=== PATIENT | female | born 1965 | race Caucasian/White ===

== ENCOUNTER 2020-01-27 18:33 | Emergency (ER) | payer OTHER, SELFPAY ==
[2020-01-27 18:38] VITALS: BP 160/105; PULSE 80; RESP 16; TEMP 36.1; O2SAT 96; BMI 41.5
[2020-01-27 20:12] VITALS: BP 137/69; PULSE 72; RESP 16; TEMP 36.8; O2SAT 97
--- NOTE | 2020-01-27 20:26 | XR_ITS ---
EXAMINATION: RIGHT FOOT AND ANKLE 6 VIEWS CLINICAL INFORMATION: Swelling. COMPARISON: None. TECHNIQUE: AP, lateral, oblique views of the right foot were obtained in addition to AP, lateral and oblique views of the right ankle. FINDINGS: There are no acute fractures or dislocations. There are manifestations of a mature healed nearly completely remodeled right fifth proximal phalanx fracture. There is mild soft tissue swelling overlying the lateral malleolus. There is also soft tissue swelling overlying the dorsum of the foot. There is a moderate-sized plantar surface calcaneal spur. No ankle joint effusion is identified. XR/XR ankle RT 2V IMPRESSION: Mild soft tissue swelling. No acute fracture or dislocation. Old healed incompletely remodeled right fifth proximal phalanx fracture.
--- NOTE | 2020-01-27 20:26 | XR_ITS ---
EXAMINATION: RIGHT FOOT AND ANKLE 6 VIEWS CLINICAL INFORMATION: Swelling. COMPARISON: None. TECHNIQUE: AP, lateral, oblique views of the right foot were obtained in addition to AP, lateral and oblique views of the right ankle. FINDINGS: There are no acute fractures or dislocations. There are manifestations of a mature healed nearly completely remodeled right fifth proximal phalanx fracture. There is mild soft tissue swelling overlying the lateral malleolus. There is also soft tissue swelling overlying the dorsum of the foot. There is a moderate-sized plantar surface calcaneal spur. No ankle joint effusion is identified. XR/XR foot RT min 3V IMPRESSION: Mild soft tissue swelling. No acute fracture or dislocation. Old healed incompletely remodeled right fifth proximal phalanx fracture.
--- NOTE | 2020-01-27 20:46 | ED.LOWEXIN ---
HPI - Extremity Injury (Lower) General Chief Complaint: Extremity Injury, Lower Stated Complaint: FOOT SWELLING Time Seen by Provider: 01/27/20 20:26 Source: patient Mode of arrival: ambulatory Limitations: no limitations History of Present Illness HPI Narrative: 54-year-old female presents with right lower extremity swelling and pain. Had a recent venous stripping approximately 1 month ago. She does not have any other complaints, denies chest pain or pressure, palpitations, fevers, chills, nausea, vomiting, diarrhea, abdominal pain, abdominal distention, dysuria, hematuria. Onset (ago): day(s) (1) Type of Injury: unknown Severity: moderate Severity scale (1-10): 7 Relieving factors: nothing Exacerbating factors: weight bearing, movement and palpation Associated symptoms: swelling and able to partially bear weight Other symptoms: none Treatments prior to arrival: NSAIDS Related Data Previous Rx's Medication Instructions Recorded cephalexin [Keflex] 500 mg PO Q8H 7 Days #21 cap 01/27/20 doxycycline monohydrate 100 mg PO BID 10 Days #20 cap 01/27/20 oxycodone 5 mg PO Q8H PRN #5 tab 01/27/20 Allergies Allergy/AdvReac Type Severity Reaction Status Date / Time No Known Allergies Allergy Unknown UNKNOWN Unverified 11/10/19 18:19 [NO KNOWN ALLERGIES] Review of Systems Review of Systems: Constitutional: No Fever, No Chills ENT/Mouth: No Ear Pain, No Hoarseness, No sore throat Eyes: No Eye Pain, No Swelling, No Redness, No Foreign Body Cardiovascular: No Chest Pain, No SOB Respiratory: No Cough, No Dyspnea Gastrointestinal: No Nausea, No Vomiting, No Diarrhea, No abdominal Pain Genitourinary: No Dysuria, No Hematuria Musculoskeletal: positive joint pain, No Myalgias, No Joint Swelling Skin: redness to right foot, No Skin lacerations, No rash Neuro: No Weakness, No Numbness, No Paresthesias, No Loss of Consciousness, No Dizziness, No Headache Psych: No Anxiety/Panic, No Depression Heme/Lymph: no easy bruising, no Lymphadenopathy Endocrine: No Polyuria, No Polydipsia Yes all other systems are reviewed and are negative [facility] Past Medical History Attestation statement: The following information was validated with the patient. Social History Social History Alcohol intake: former Smoking Status: Current every day smoker Smoked in Last 30 Days: Yes Use of substances other than those prescribed or required for medical reasons: No Advance Directives: No Advance Directives Information Provided: Yes Physical Exam Vital Signs: Vital Signs: Last Vital Signs Temp 98.6 F 01/27/20 22:23 Pulse 70 01/27/20 22:23 Resp 18 01/27/20 22:23 BP 111/65 01/27/20 22:23 Pulse Ox 93 01/27/20 22:23 Body Mass Index 41.5 Appearance: Alert. Oriented X3. No acute distress. Eyes: Pupils equal, round and reactive to light. ENT: Pharynx normal. Neck: Normal inspection. Neck supple. CVS: Normal heart rate and rhythm. Pulses normal. Respiratory: No respiratory distress. Breath sounds normal. Abdomen: Soft and nontender. Skin: Skin warm and dry. Normal skin color. Normal skin turgor. Extremities: No lower extremity edema. Neuro: No motor deficit. No sensory deficit. Extrem: Other: General: Yes full ROM, Yes capillary refill normal and Yes no calf tenderness Course Course Course Narrative: 54-year-old female presents with the right lower extremity. Had recent venous stripping approximately 3-4 weeks ago. Will order x-rays and duplex to rule out DVT. CBC and Chem 7. white count elevated at 13, x-rays negative for acute findings, duplex negative for DVT. Plan of care is to treat with p.o. antibiotics, patient does understand that if symptoms get worse or if she presents with fevers or chills she should come back for IV antibiotics and re-evaluation. Patient does have a difficult time walking secondary to pain, we will give 5 tablets of oxycodone for home use. She does understand the dangers of Narcotics. Patient verbalized understanding of and agrees to plan of care to discharge home. MDM - Extremity Injury (Lower) MDM Narrative Medical decision making narrative: Cellulitis, DVT Differential Diagnosis Differential diagnosis: Likely ankle sprain and strain Medical Records Attestation: I reviewed the patient's medical records. Lab Data Attestation: I reviewed the patient's lab results. Result diagrams: 01/27/20 20:45 01/27/20 20:45 Labs: Lab Results 12/04/20 12/04/20 Range/Units 20:45 20:45 WBC 13.2 H (4.8-10.8) X10*3/uL RBC 5.19 (4.20-5.50) X10*6/uL Hgb 14.7 (12.0-16.0) g/dl Hct 44.5 (37-47) % MCV 85.7 (80-98) fL MCH 28.3 (27.0-33.0) pg MCHC 33.0 (31.0-35.0) g/dl RDW 13.7 (11.0-16.0) % Plt Count 230 (160-400) X10*3/uL MPV 12.1 (9.4-12.3) fL Immature Gran % (Auto) 0.5 H (0.0-0.4) % Neut % (Auto) 64.0 (45-73) % Lymph % (Auto) 25.2 (20-40) % [place] % (Auto) 7.6 (2-11) % Eos % (Auto) 2.3 (0-4) % Baso % (Auto) 0.4 (0-2) % Lymph # (Auto) 3.3 (1.2-4.9) X10*3/uL [place] # (Auto) 1.0 (0.1-1.2) X10*3/uL Eos # (Auto) 0.3 (0.0-0.4) X10*3/uL Baso # (Auto) 0.1 (0.0-0.2) X10*3/uL Abs Immat Gran (auto) 0.06 H (0.00-0.03) X10*3/uL Absolute Neuts (auto) 8.5 H (2.0-8.3) X10*3/uL Absolute Nucleated RBC 0.000 (0.0-0.012) X10*3/uL Nucleated RBC % (auto) 0.0 (0.0-0.2) /100WBC Smear Tech's Comments VERIFIED Sodium Cancelled Potassium Cancelled Chloride Cancelled Carbon Dioxide Cancelled Anion Gap Cancelled BUN Cancelled Creatinine Cancelled Estim Creat Clear Calc Cancelled Estimated GFR Cancelled Random Glucose Cancelled Calcium Cancelled Imaging Data Venous US: Attestation: I personally reviewed and interpreted this imaging study as follows: Radiologist's impression: EXAMINATION: US VENOUS ULTRASOUND WITH DOPPLER LOWER EXTREMITY, RIGHT CLINICAL INFORMATION: Edema COMPARISON: Prior venous Doppler ultrasound exam right lower extremity 09/02/2018 TECHNIQUE: Ultrasound of the deep veins is performed from the hip to the calf with compression sonography and color and pulse Doppler assessment. Spectral analysis with color-flow imaging is performed. FINDINGS: There is normal venous compression and respiratory variation and augmented flow. The visualized common femoral vein, superficial femoral vein, profunda femoral vein, popliteal vein, and the trifurcation region shows no evidence of deep venous thrombosis. There is no significant popliteal fossa cyst. There are compressible varicosities without thrombus. There is a morphologically normal-appearing lymph node in the right groin with fatty tawana measuring 1.5 cm. If the patient's symptoms persist, followup ultrasound in 5 days 7 days might be of value to exclude proximal propagation from a non-visualized calf vein. US/US venous duplex LE RT IMPRESSION: No DVT demonstrated in the right lower extremity. right foot and ankle x-ray: Attestation: I personally reviewed and interpreted this imaging study as follows: Radiologist's impression: EXAMINATION: RIGHT FOOT AND ANKLE 6 VIEWS CLINICAL INFORMATION: Swelling. COMPARISON: None. TECHNIQUE: AP, lateral, oblique views of the right foot were obtained in addition to AP, lateral and oblique views of the right ankle. FINDINGS: There are no acute fractures or dislocations. There are manifestations of a mature healed nearly completely remodeled right fifth proximal phalanx fracture. There is mild soft tissue swelling overlying the lateral malleolus. There is also soft tissue swelling overlying the dorsum of the foot. There is a moderate-sized plantar surface calcaneal spur. No ankle joint effusion is identified. XR/XR foot RT min 3V IMPRESSION: Mild soft tissue swelling. No acute fracture or dislocation. Old healed incompletely remodeled right fifth proximal phalanx fracture Discharge Plan Discharge Clinical Impression: Cellulitis Qualifiers: Site of cellulitis: extremity Site of cellulitis of extremity: lower extremity Laterality: left Qualified Code(s): L03.116 - Cellulitis of left lower limb Patient Disposition: Home, Self-Care Instructions: Cellulitis (ED) Additional Instructions: you were evaluated for redness and swelling to the right lower extremity. x-rays of the foot and ankle are negative for acute findings, venous duplex is negative for DVT. This is suspected to be cellulitis. We provided you with Keflex and doxycycline. Please take these antibiotics as directed, these antibiotics cover for different bacteria. please complete both of these medications. For pain management we prescribed oxycodone. Oxycodone is and narcotic and has high risk for addiction and abuse. Do not drive or operate machinery while taking this medication this medication can increase risk for falls, cause drowsiness, and delayed reaction time. This medication also causes constipation, please use MiraLax and or Colace as needed to help soften stools. Please call the surgeon that performed the venous stripping. Please let them know that you are being treated for cellulitis. please follow-up with primary care physician in the next week For evaluation of cellulitis to the right lower extremity. If symptoms get worse please return to the emergency department. Thank you for choosing this emergency department for evaluation. Please follow-up with primary care physician as needed. Return to the emergency department for any new, concerning, or worsening symptoms. Prescriptions: New cephalexin [Keflex] 500 mg capsule 500 mg PO Q8H 7 Days Qty: 21 RF: 0 doxycycline monohydrate 100 mg capsule 100 mg PO BID 10 Days Qty: 20 RF: 0 oxycodone 5 mg tablet 5 mg PO Q8H PRN (Reason: pain) Qty: 5 RF: 0 Discharge Date/Time: 01/27/20 22:32
[2020-01-27 21:07] LABS: Basophils Absolute Auto 0.1 X10*3/uL (0.0-0.2); Basophils Percent Auto 0.4 % (0-2); MANUAL DIFF FLAG SCAN; Mean Corpuscular Hemoglobin 28.3 pg (27.0-33.0); PLT CLUMP 1; Red Cell Distribution Width 13.7 % (11.0-16.0); SCAN SMEAR FLAG 1
[2020-01-27 21:08] LABS: Eosinophils Absolute Auto 0.3 X10*3/uL (0.0-0.4); Eosinophils Percent Auto 2.3 % (0-4); Hematocrit 44.5 % (37-47); Hemoglobin 14.7 g/dl (12.0-16.0); Imm Gran Abs Auto 0.06 X10*3/uL (0.00-0.03); Imm Gran Pct Auto 0.5 % (0.0-0.4); Lymphocytes Absolute Auto 3.3 X10*3/uL (1.2-4.9); Lymphocytes Percent Auto 25.2 % (20-40); Mean Corpuscular Volume 85.7 fL (80-98); Mean Platelet Volume 12.1 fL (9.4-12.3); Monocytes Percent Auto 7.6 % (2-11); Neutrophils Absolute Auto 8.5 X10*3/uL (2.0-8.3); Platelet Count 230 X10*3/uL (160-400); Red Blood Count 5.19 X10*6/uL (4.20-5.50); White Blood Count 13.2 X10*3/uL (4.8-10.8)
[2020-01-27 21:33] LABS: SLIDE REVIEW VERIFIED
[2020-01-27 22:23] VITALS: BP 111/65; PULSE 70; RESP 18; TEMP 37; O2SAT 93
[2020-01-27] MEDS: oxyCODONE HCl Immed Release 5 MG TABLET PO (22:26)
[2020-01-27] MEDS: cephALEXin 500 MG CAPSULE PO (22:26)
== END 2020-01-27 22:32 | disposition home or self-care (01) ==
PROVIDERS: Nurse Practitioner Family; Emergency Provider Emergency Medicine
DX: L03.116 Cellulitis of left lower limb (principal); R60.0 Localized edema; M79.662 Pain in left lower leg; Z79.899 Other long term (current) drug therapy; F17.200 Nicotine dependence, unspecified, uncomplicated; Z71.6 Tobacco abuse counseling
CPT/HCPCS: 36415; 73600; 73630; 80048; 85025; 93971; 99284

== ENCOUNTER 2020-07-27 06:48 | Emergency (ER) | payer OTHER, SELFPAY ==
--- NOTE | 2020-07-27 07:13 | ED.SKABFB ---
HPI - Skin/Abscess/Foreign Bdy General Chief complaint: Skin/Abscess/Foreign Body Stated complaint: ABSCESS Time Seen by Provider: 07/27/20 07:13 History of Present Illness HPI narrative: Patient is a 55-year-old female presents today with a painful lesion over the right axilla area. Patient has a history of abscess in the past. There is no fever no chills no systemic complaints. Claims the lesion popped up over the last 24 hours. Had a 2nd 1 that actually ruptured pus was drained. Patient from home. No fever no chills no chest pain or shortness of breath no systemic complaints. Related Data Previous Rx's Medication Instructions Recorded cephalexin [Keflex] 500 mg PO Q8H 7 Days #21 cap 01/27/20 doxycycline monohydrate 100 mg PO BID 10 Days #20 cap 01/27/20 oxycodone 5 mg PO Q8H PRN #5 tab 01/27/20 doxycycline hyclate 100 mg PO BID #10 tab 07/27/20 Allergies Allergy/AdvReac Type Severity Reaction Status Date / Time No Known Allergies Allergy Unknown UNKNOWN Unverified 11/10/19 18:19 [NO KNOWN ALLERGIES] Review of Systems Review of Systems: Constitutional: No Weight loss, No Fever, No Chills, No Night Sweats, No Fatigue, No Malaise ENT/Mouth: No Hearing loss, No Ear Pain, No Nasal Congestion, No Sinus Pain, No Hoarseness, No sore throat, No Rhinorrhea, No Swallowing Difficulty Eyes: No Eye Pain, No Swelling, No Redness, No Foreign Body, No Discharge, No Vision Changes Cardiovascular: No Chest Pain, No SOB, No Dyspnea on Exertion, No Orthopnea, No Edema, No Palpitations Respiratory: No Cough, No Sputum, No Wheezing, No Smoke Exposure, No Dyspnea Gastrointestinal: No Nausea, No Vomiting, No Diarrhea, No Constipation, No abdominal Pain, No Hematochezia, No Melena Genitourinary: no irregular bleeding, No Dysuria, No Urinary Frequency, No Hematuria, No Urinary Incontinence, No Urgency, No Flank Pain, No Urinary Flow Changes, No Hesitancy Musculoskeletal: No joint pain, No Myalgias, No Joint Swelling Skin: No Skin Lesions, positive right axillary lesion Neuro: No Weakness, No Numbness, No Paresthesias, No Loss of Consciousness, No Dizziness, No Headache Psych: No Anxiety/Panic, No Depression, No SI/HI/AH/VH, No Social Issues, Heme/Lymph: No Bruising, No Bleeding,No Lymphadenopathy Endocrine: No Polyuria, No Polydipsia, No Temperature Intolerance Yes all other systems are reviewed and are negative [facility] Social History Social History Alcohol intake: former Advance Directives: Yes Advance Directives Information Provided: Yes Advance Directives on File: No Physical Exam Vital Signs: Vital Signs: Last Vital Signs Temp 97.7 F 07/27/20 07:32 Pulse 70 07/27/20 07:32 Resp 20 07/27/20 07:32 BP 123/56 L 07/27/20 07:32 Pulse Ox 97 07/27/20 07:32 Body Mass Index 41.5 Appearance: Alert. Oriented X3. No acute distress. Eyes: Pupils equal, round and reactive to light. ENT: Pharynx normal. Neck: Normal inspection. Neck supple. No lymph nodes noted. No crepitus CVS: Normal heart rate and rhythm. Pulses normal. Normal S1 and S2 Respiratory: No respiratory distress. Breath sounds normal. No Wheezing. No rales Abdomen: Soft and nontender. No rigidity. No distention. good BS x4 Skin: Skin warm and dry. Normal skin color. Normal skin turgor. Positive fluctuant lesion over the right axilla approximately 3 cm x 3 cm in size. Red warm to touch. Extremities: No lower extremity edema. Neurovascular intact to all extremities. No Lacerations. No Rash Neuro: Oriented X 3. No motor deficit. No sensory deficit. Moving all extermities. No slurred speech Procedures Abscess I/D Site: scalp and other (Axilla) Side (if applicable): right Sedation/analgesia: none Local Anesthetic: lidocaine 1% Amount of anesthesia used (mL): 5 Technique: incised with blade Amount of fluid expressed (mL): 3 Sent for culture/gram staining?: Yes Irrigation: Yes Packing used?: iodoform MDM - Skin/Abscess/Foreign Bdy MDM Narrative Medical decision making narrative: Abscess I& D. Will start patient on antibiotic as there is gross redness surrounding the area. Will discharge patient home close follow-up on an outpatient basis. Patient is started on doxycycline 100 mg twice a day for 5 days. Medical Records Attestation: I reviewed the patient's medical records. Lab Data Attestation: I reviewed the patient's lab results. Discharge Plan Discharge Clinical Impression: Abscess Patient Disposition: Home, Self-Care Instructions: Abscess (ED), Abscess Follow-up (ED) Prescriptions: New doxycycline hyclate 100 mg tablet 100 mg PO BID Qty: 10 RF: 0 No Action cephalexin [Keflex] 500 mg capsule 500 mg PO Q8H 7 Days Qty: 21 RF: 0 doxycycline monohydrate 100 mg capsule 100 mg PO BID 10 Days Qty: 20 RF: 0 oxycodone 5 mg tablet 5 mg PO Q8H PRN (Reason: pain) Qty: 5 RF: 0 Referrals: Connell,Lisset Brewer MD [Emergency Provider] - 2 days (Follow-up with your primary doctor or with the emergency department in 2 days for wound check.)
[2020-07-27 07:32] VITALS: BP 123/56; PULSE 70; RESP 20; TEMP 36.5; O2SAT 97; BMI 41.5
[2020-07-27] MEDS: Lidocaine HCl 1 % MPF 5 ML VIAL SUBCUT (07:37)
--- NOTE | 2020-07-27 08:05 | PC.NURSE ---
I&D OF AXILLARY ABSCESS. CULTURE OBTAINED AND SENT. PACKING AND DRESSING PLACED. NO ACTIVE BLEEDING
== END 2020-07-27 08:07 | disposition home or self-care (01) ==
PROVIDERS: Emergency Provider Emergency Medicine Emergency Medical Services; PCP Internal Medicine
DX: L02.411 Cutaneous abscess of right axilla (principal)
CPT/HCPCS: 10060; 87071; 87205; 99282; 99284

== ENCOUNTER 2021-04-04 07:37 | Emergency (ER) | payer OTHER, SELFPAY ==
[2021-04-04 07:50] VITALS: BP 124/64; PULSE 77; RESP 20; TEMP 37.1; O2SAT 97
[2021-04-04 08:00] VITALS: BMI 47.5
--- NOTE | 2021-04-04 08:59 | ED.SKABFB ---
HPI - Skin/Abscess/Foreign Bdy General Chief complaint: Skin/Abscess/Foreign Body Stated complaint: yeast infection Time Seen by Provider: 04/04/21 08:03 Source: patient Mode of arrival: ambulatory Limitations: no limitations History of Present Illness HPI narrative: Patient comes to emergency room complaining of an abdominal rash. Patient states that she is known to have recurrent candidiasis. However, patient states that her insurance stopped paying for topical nystatin. Patient went to an urgent care approximately 3-4 days ago. She was prescribed 1 small dose of nystatin topical, patient states that the rash got worse. Patient denies fever chills Related Data Previous Rx's Medication Instructions Recorded cephalexin 500 mg capsule (Keflex) 500 mg PO Q8H 7 Days #21 cap 01/27/20 doxycycline monohydrate 100 mg 100 mg PO BID 10 Days #20 cap 01/27/20 capsule oxycodone 5 mg tablet 5 mg PO Q8H PRN #5 tab 01/27/20 doxycycline hyclate 100 mg tablet 100 mg PO BID #10 tab 07/27/20 fluconazole 200 mg tablet 200 mg PO DAILY 14 Days #14 tab 04/04/21 nystatin 100,000 unit/gram topical 1 appl TOPICAL TID #30 g 04/04/21 cream Allergies Allergy/AdvReac Type Severity Reaction Status Date / Time No Known Allergies Allergy Unknown UNKNOWN Verified 04/04/21 08:00 [NO KNOWN ALLERGIES] Review of Systems Review of Systems: Constitutional : No Weight loss, No Fever, No Chills, No Night Sweats, No Fatigue, No Malaise ENT/Mouth : No Hearing loss, No Ear Pain, No Nasal Congestion, No Sinus Pain, No Hoarseness, No sore throat, No Rhinorrhea, No Swallowing Difficulty Eyes: No Eye Pain, No Swelling, No Redness, No Foreign Body, No Discharge, No Vision Changes Cardiovascular : No Chest Pain, No SOB, No Dyspnea on Exertion, No Orthopnea, No Edema, No Palpitations Respiratory : No Cough, No Sputum, No Wheezing, No Smoke Exposure, No Dyspnea Gastrointestinal : No Nausea, No Vomiting, No Diarrhea, No Constipation, No abdominal Pain, No Hematochezia, No Melena Genitourinary : no irregular bleeding, No Dysuria, No Urinary Frequency, No Hematuria, No Urinary Incontinence, No Urgency, No Flank Pain, No Urinary Flow Changes, No Hesitancy Musculoskeletal : No joint pain, No Myalgias, No Joint Swelling Skin : Candidal rash in chest, abdomen and groin Neuro : No Weakness, No Numbness, No Paresthesias, No Loss of Consciousness, No Dizziness, No Headache Psych : No Anxiety/Panic, No Depression, No SI/HI/AH/VH, No Social Issues, Heme/Lymph: No Bruising, No Bleeding,No Lymphadenopathy Endocrine : No Polyuria, No Polydipsia, No Temperature Intolerance [facility] Past Medical History Medical History Eczema Social History Social History Alcohol intake: never Patient Tobacco Use Status: Current everyday Tobacco user Use of substances other than those prescribed or required for medical reasons: No Advance Directives: No Advance Directives Information Provided: No Physical Exam Vital Signs: Vital Signs: Last Vital Signs Temp 98.9 F 04/04/21 09:47 Pulse 73 04/04/21 09:47 Resp 18 04/04/21 09:47 BP 107/55 L 04/04/21 09:47 Pulse Ox 96 04/04/21 09:47 BMI result Body Mass Index 47.5 Const: Other: Appearance: Alert. Oriented X3. No acute distress. Eyes: Pupils equal, round and reactive to light. ENT: Pharynx normal. Neck: Normal inspection. Neck supple. No lymph nodes noted. No crepitus CVS: Normal heart rate and rhythm. Pulses normal. Normal S1 and S2 Respiratory: No respiratory distress. Breath sounds normal. No Wheezing. No rales Abdomen: Soft and nontender. No rigidity. No distention. good BS x4 Skin: Eczema and common [place] under breasts, chest/abdomen and groin, extensive satellite lesions Extremities: No lower extremity edema. No lower extremity edema. No Lacerations. No Rash Neuro: Oriented X 3. No motor deficit. No sensory deficit. Moving all extermities. No slurred speech. Course Course Course Narrative: Patient's labs are pending. I discussed with the patient that given the extent of the rash, ideally she should be admitted. states that she has a young child at home, and will refuse admission Case management was able to get me a list of medications that the patient's insurance will cover. I discussed with the patient that if the rash keeps getting any worse, she will have to be admitted. At this time, i.e. do not believe that the patient has superimposing cellulitis MDM - Skin/Abscess/Foreign Bdy Lab Data Result diagrams: 04/04/21 09:23 04/04/21 09:23 Labs: Lab Results 04/04/21 04/04/21 04/04/21 Range/Units 09:23 09:23 09:23 WBC 9.4 (4.8-10.8) X10*3/uL RBC 4.59 (4.20-5.50) X10*6/uL Hgb 12.9 (12.0-16.0) g/dl Hct 39.7 (37.0-47.0) % MCV 86.5 (80.0-98.0) fL MCH 28.1 (27.0-33.0) pg MCHC 32.5 (31.0-35.0) g/dl RDW 12.8 (11.0-16.0) % Plt Count 270 (160-400) X10*3/uL MPV 10.4 (9.4-12.3) fL Immature Gran % (Auto) 0.4 (0.0-0.4) % Neut % (Auto) 64.5 (45-73) % Lymph % (Auto) 19.5 L (20-40) % [place] % (Auto) 10.4 (2-11) % Eos % (Auto) 4.9 H (0-4) % Baso % (Auto) 0.3 (0-2) % Lymph # (Auto) 1.8 (1.2-4.9) X10*3/uL [place] # (Auto) 1.0 (0.1-1.2) X10*3/uL Eos # (Auto) 0.5 H (0.0-0.4) X10*3/uL Baso # (Auto) 0.0 (0.0-0.2) X10*3/uL Abs Immat Gran (auto) 0.04 H (0.00-0.03) X10*3/uL Absolute Neuts (auto) 6.0 (2.0-8.3) x10*3/uL Absolute Nucleated RBC 0.000 (0.0-0.012) X10*3/uL Nucleated RBC % (auto) 0.0 (0.0-0.2) /100WBC Sodium 138 (135-145) mmol/L Potassium 4.3 (3.3-5.1) mmol/L Chloride 103 (96-108) mmol/L Carbon Dioxide 28 (22-29) mmol/L Anion Gap 11 L (12-20) BUN 11 (9-16) mg/dL Creatinine 0.74 (0.5-1.4) mg/dL Estim Creat Clear Calc 104.7 Estimated GFR > 60 Random Glucose 123 H (60-115) mg/dL Lactic Acid 1.0 (0.5-2.0) mmol/L Calcium 9.0 (8.4-10.2) mg/dL Total Bilirubin 0.3 (0.0-1.0) mg/dL Direct Bilirubin 0.2 (0.0-0.5) mg/dL AST 27 (5-31) U/L ALT 21 (0-31) U/L Alkaline Phosphatase 106 (39-117) U/L Total Protein 6.2 L (6.5-8.0) g/dL Albumin 3.6 (3.5-5.0) g/dL Discharge Plan Discharge Clinical Impression: Candidiasis Patient Disposition: Home, Self-Care Instructions: Skin Yeast Infection (ED) Additional Instructions: Please follow-up with your primary care physician tomorrow. If you have any worsening or new symptoms, please return to the emergency room or call 911 Prescriptions: New fluconazole 200 mg tablet 200 mg PO DAILY 14 Days Qty: 14 0RF nystatin 100,000 unit/gram cream 1 appl topical TID Qty: 30 4RF No Action doxycycline hyclate 100 mg tablet 100 mg PO BID Qty: 10 0RF cephalexin [Keflex] 500 mg capsule 500 mg PO Q8H 7 Days Qty: 21 0RF doxycycline monohydrate 100 mg capsule 100 mg PO BID 10 Days Qty: 20 0RF oxycodone 5 mg tablet 5 mg PO Q8H PRN (Reason: pain) Qty: 5 0RF
[2021-04-04 09:30] LABS: MANUAL DIFF FLAG NO
[2021-04-04 09:32] LABS: Basophils Percent Auto 0.3 % (0-2); Eosinophils Absolute Auto 0.5 X10*3/uL (0.0-0.4); Eosinophils Percent Auto 4.9 % (0-4); Hematocrit 39.7 % (37.0-47.0); Hemoglobin 12.9 g/dl (12.0-16.0); Imm Gran Abs Auto 0.04 X10*3/uL (0.00-0.03); Imm Gran Pct Auto 0.4 % (0.0-0.4); Lymphocytes Absolute Auto 1.8 X10*3/uL (1.2-4.9); Lymphocytes Percent Auto 19.5 % (20-40); Mean Corpuscular HGB Conc 32.5 g/dl (31.0-35.0); Mean Corpuscular Hemoglobin 28.1 pg (27.0-33.0); Mean Corpuscular Volume 86.5 fL (80.0-98.0); Mean Platelet Volume 10.4 fL (9.4-12.3); Monocytes Percent Auto 10.4 % (2-11); Neutrophils Percent Auto 64.5 % (45-73); Platelet Count 270 X10*3/uL (160-400); Red Blood Count 4.59 X10*6/uL (4.20-5.50); Red Cell Distribution Width 12.8 % (11.0-16.0); White Blood Count 9.4 X10*3/uL (4.8-10.8)
[2021-04-04 09:47] VITALS: BP 107/55; PULSE 73; RESP 18; TEMP 37.2; O2SAT 96
[2021-04-04 09:50] LABS: Alanine Aminotransferase 21 U/L (0-31); Albumin Level 3.6 g/dL (3.5-5.0); Alkaline Phosphatase 106 U/L (39-117); Anion Gap 11 (12-20); Aspartate Amino Transferase 27 U/L (5-31); Bilirubin Direct 0.2 mg/dL (0.0-0.5); Bilirubin Total 0.3 mg/dL (0.0-1.0); Blood Urea Nitrogen 11 mg/dL (9-16); Carbon Dioxide 28 mmol/L (22-29); Chloride 103 mmol/L (96-108); Creatinine Clr Calc Pharmacy 104.7; Estimated Glomerular Filt Rate > 60; Glucose Random 123 mg/dL (60-115); Potassium 4.3 mmol/L (3.3-5.1); Sodium 138 mmol/L (135-145); Total Protein 6.2 g/dL (6.5-8.0)
== END 2021-04-04 11:22 | disposition home or self-care (01) ==
PROVIDERS: Emergency Provider Emergency Medicine; PCP Internal Medicine
DX: B37.2 Candidiasis of skin and nail (principal); Z79.899 Other long term (current) drug therapy
CPT/HCPCS: 36415; 80048; 80076; 83605; 85025; 87040; 99283; 99284

== ENCOUNTER 2022-01-03 07:35 | Outpatient (REF) | payer OTHER, SELFPAY ==
--- NOTE | ~2022-01-03 | XR_ITS ---
EXAMINATION: AP STANDING BILATERAL KNEE. RIGHT KNEE. LEFT KNEE. CLINICAL INFORMATION: Bilateral knee pain. COMPARISON: None TECHNIQUE: AP bilateral knee 1 view. 2 views each knee. FINDINGS: AP bilateral knee: There is severe loss of medial compartment right knee and lateral compartment left knee. No bony erosive changes. No joint effusion. The soft tissues are normal. Left knee: There is moderate suprapatellar joint effusion with loss of patellofemoral compartment joint space and lateral patellar enthesophyte. No loose body seen. There is mild osteopenia. Right knee: There is moderate loss of patellar femoral compartment joint space with periapical articular spurring in moderate suprapatellar joint effusion. No fracture or loose body seen. XR/XR knee RT 2V IMPRESSION: Severe degenerative changes medial compartment right knee and lateral compartment left knee. No visible acute fracture, dislocation or subluxation seen. Degenerative changes patellar femoral compartment with periarticular spurring and moderate suprapatellar joint effusion in both knees.
--- NOTE | ~2022-01-03 | XR_ITS ---
EXAMINATION: AP STANDING BILATERAL KNEE. RIGHT KNEE. LEFT KNEE. CLINICAL INFORMATION: Bilateral knee pain. COMPARISON: None TECHNIQUE: AP bilateral knee 1 view. 2 views each knee. FINDINGS: AP bilateral knee: There is severe loss of medial compartment right knee and lateral compartment left knee. No bony erosive changes. No joint effusion. The soft tissues are normal. Left knee: There is moderate suprapatellar joint effusion with loss of patellofemoral compartment joint space and lateral patellar enthesophyte. No loose body seen. There is mild osteopenia. Right knee: There is moderate loss of patellar femoral compartment joint space with periapical articular spurring in moderate suprapatellar joint effusion. No fracture or loose body seen. XR/XR knee standing BI IMPRESSION: Severe degenerative changes medial compartment right knee and lateral compartment left knee. No visible acute fracture, dislocation or subluxation seen. Degenerative changes patellar femoral compartment with periarticular spurring and moderate suprapatellar joint effusion in both knees.
--- NOTE | ~2022-01-03 | XR_ITS ---
EXAMINATION: AP STANDING BILATERAL KNEE. RIGHT KNEE. LEFT KNEE. CLINICAL INFORMATION: Bilateral knee pain. COMPARISON: None TECHNIQUE: AP bilateral knee 1 view. 2 views each knee. FINDINGS: AP bilateral knee: There is severe loss of medial compartment right knee and lateral compartment left knee. No bony erosive changes. No joint effusion. The soft tissues are normal. Left knee: There is moderate suprapatellar joint effusion with loss of patellofemoral compartment joint space and lateral patellar enthesophyte. No loose body seen. There is mild osteopenia. Right knee: There is moderate loss of patellar femoral compartment joint space with periapical articular spurring in moderate suprapatellar joint effusion. No fracture or loose body seen. XR/XR knee LT 2V IMPRESSION: Severe degenerative changes medial compartment right knee and lateral compartment left knee. No visible acute fracture, dislocation or subluxation seen. Degenerative changes patellar femoral compartment with periarticular spurring and moderate suprapatellar joint effusion in both knees.
== END 2022-01-03 07:36 | disposition home or self-care (01) ==
LOC: HO.HOSX 07:35
PROVIDERS: Visit Provider Physician Assistant
DX: M25.561 Pain in right knee (principal); M25.562 Pain in left knee; M17.0 Bilateral primary osteoarthritis of knee; F11.20 Opioid dependence, uncomplicated; F17.210 Nicotine dependence, cigarettes, uncomplicated
CPT/HCPCS: 20610; 73560; 73565; 99202; J1020

== ENCOUNTER → 2022-04-23 10:16 | Outpatient (BNVA) | payer OTHER, SELFPAY | PROVIDERS: PCP Internal Medicine; Visit Provider Physician Assistant | DX: M17.0 Bilateral primary osteoarthritis of knee (principal) | CPT/HCPCS: 20610; 99212; J1040 ==

== ENCOUNTER → 2022-07-25 08:56 | Outpatient (BNVA) | payer OTHER, SELFPAY | PROVIDERS: PCP Internal Medicine; Visit Provider Physician Assistant | DX: M17.0 Bilateral primary osteoarthritis of knee (principal) | CPT/HCPCS: 20610; 99212; J1040 ==

== ENCOUNTER 2022-09-02 11:01 | Outpatient (AMB) | payer OTHER, SELFPAY ==
--- NOTE | 2022-09-02 11:07 | MHC.OFFVIS ---
Intake Vital Signs 09/02/22 11:20 Height 5 ft 2 in Weight 213 lb 8 oz BMI 39.0 BP 140/90 H Blood Pressure Location Lt brachial Position Sitting Respiration 18 Pulse 88 Pulse Source Pulse Oximeter Pulse Oximetry (%) 98 Oxygen Delivery Method Room Air Intake Visit Reasons: BILATERAL KNEE PAIN Allergies No Known Allergies [NO KNOWN ALLERGIES] Allergy (Unknown, Verified 09/02/22 11:19) UNKNOWN HPI HPI Comments History of Present Illness Details Farrah is a pleasant 57-year-old female who presents to the office today on referral from Orthopedics for evaluation management of her chronic bilateral knee pain. Patient reports this pain has been going on since 2014. Started as severe right knee pain but over time is now in both knees and today reports that her left knee pain is more severe than her right. She has tried physical therapy, NSAIDs, steroid injections and had a right knee RFA 03/04/2021. Most recent steroid injection was given at the orthopedics office 1 month ago, she reports basically no change in her pain. Patient reports the pain is impacting her ability to sleep, perform activities daily living, care for herself and to function normally. She is on permanent disability and ambulates with a cane. She reports pain is worse with movements, walking and is present at all times of the day, today is 12/02. In terms of muscle damage condition is described as pulsing, throbbing, pounding, jumping, flushing, shooting, stabbing, lancinating, sharp, cutting, lacerating, pinching, cramping, crushing, dull, sore, hurting, aching, heavy, tight, squeezing and tearing. Patient reports she had a right diagnostic genicular nerve block followed by right genicular RFA. She had great results of the diagnostic testing but did not have any relief following the RFA. She states that the procedure was ?horrible and she is still traumatized. She was awake during the whole thing it was terribly painful. She is to take gabapentin for her pain which provided her some relief, she was able to sleep better with gabapentin. Patient's past medical history significant for bilateral knee osteoarthritis and acid reflux. Patient denies implantable devices, pacemaker and a defibrillator. Patient smokes approximately half pack a day, denies any use of alcohol or illicit drugs. [facility] Medical History (Updated 09/02/22 @ 12:05 by Jessica Falcon APRN, DIVISION TRAFFIC SUPERINTENDENT) Bilateral primary osteoarthritis of knee Eczema GERD (gastroesophageal reflux disease) Surgical History (Updated 09/02/22 @ 12:06 by Jessica Falcon APRN, DIVISION TRAFFIC SUPERINTENDENT) History of cholecystectomy Hx of hernia repair Social History (Updated 09/02/22 @ 12:07 by Jessica Falcon APRN, DIVISION TRAFFIC SUPERINTENDENT) Alcohol intake: never Patient Tobacco Use Status: Current everyday Tobacco user Cigarettes Per Day: 10 Current occupational status: disabled Current occupation: rt hand Physical Exam Const Other: General: awake, alert, oriented. Answers questions appropriately. Fully engaged in examination. Skin: warm, dry, intact without visible rashes or lesions. HEENT: Normocephalic. Conjuntivae clear without exudate. Sclera non-icteric. Hearing intact. Cardiac: External chest normal in appearance. Respiratory: No signs of trauma. No signs of respiratory distress. No cough, audible wheezing or stridor. Abdomen: without gross distension. Neurological: Oriented to person, place, time and situation. Thought process intact. Psychiatric: Appropriate mood and affect. Good judgment and insight. Extrem Right lower extremity: knee Details: tenderness Location: of the medial joint line, normal ROM and crepitus Left lower extremity: knee Details: tenderness Location: of the lateral joint line, normal ROM and crepitus Results Reviewed Results Reviewed: 01/03/2022: EXAMINATION: AP STANDING BILATERAL KNEE. RIGHT KNEE. LEFT KNEE. AP bilateral knee: There is severe loss of medial compartment right knee and lateral compartment left knee. No bony erosive changes. No joint effusion. The soft tissues are normal. Left knee: There is moderate suprapatellar joint effusion with loss of patellofemoral compartment joint space and lateral patellar enthesophyte. No loose body seen. There is mild osteopenia. Right knee: There is moderate loss of patellar femoral compartment joint space with periapical articular spurring in moderate suprapatellar joint effusion. No fracture or loose body seen. IMPRESSION: Severe degenerative changes medial compartment right knee and lateral compartment left knee. No visible acute fracture, dislocation or subluxation seen. ? Degenerative changes patellar femoral compartment with periarticular spurring and moderate suprapatellar joint effusion in both knees. Assessment & Plan Assessment & Plan (1) Bilateral primary osteoarthritis of knee: Code(s): M17.0 - Bilateral primary osteoarthritis of knee Plan Gabapentin 100mg po daily at bedtime as needed Performix topical compound cream TID to bilateral knees as needed. Discussed diagnostic testing followed by peripheral nerve stimulation with Sprint, RFA and more permanent neuromodulation with Stimwave. Patient is interested in Sprint PNS. Informational pamphlets provided. Schedule for Fluoroscopy Guided Diagnostic Left Saphenous Nerve Block with local anesthetic. Will plan for Left Saphenous Sprint PNS if patient reports good results of diagnostic nerve block. If patient does not receive good pain relief with the diagnostic saphenous nerve block will plan second attempt at genicular nerve block and genicular RFA. Patient would need to have RFA with MAC sedation as she did not tolerate previous attempt at RFA with local anesthetic. Will plan for Fluoroscopy Guided Diagnostic Right Saphenous Nerve Block with local after completion of the Left knee Sprint placement. Justification for interventional therapy: ? Patient with average pain > 6/10 ? Patient has exhausted conservative therapy including physical therapy, NSAIDs, steroid injections. Patient is not a candidate for TKA at this time per Ortho note. The risks, consequences, alternatives, and benefits of various treatment options were discussed with the patient in great detail, including conservative management, injections and procedures. All questions and concerns have been answered and patient agreed with the plan. Follow up after injections and sooner if needed. Medications: New diclofenac sodium 1% (Arthritis Pain (diclofenac)) apply to bilateral knees three times daily as needed for pain 4 grams topical QID PRN 180 grams 0RF pain gabapentin 100 mg PO BEDTIME 30 caps 0RF Coding Level of Care Code New Pt Level 4 (58660) Diagnoses Bilateral primary osteoarthritis of knee M17.0
[2022-09-02 11:20] VITALS: BP 140/90; PULSE 88; RESP 18; O2SAT 98; BMI 39.0
== END 2022-09-02 11:48 | disposition home or self-care (01) ==
PROVIDERS: PCP Internal Medicine; Visit Provider Registered Nurse Emergency
DX: M17.0 Bilateral primary osteoarthritis of knee (principal)
CPT/HCPCS: 99204

== ENCOUNTER → 2022-09-02 11:01 | Outpatient (BNVA) | payer OTHER, SELFPAY | PROVIDERS: PCP Internal Medicine; Visit Provider Registered Nurse Emergency | DX: M17.0 Bilateral primary osteoarthritis of knee (principal) | CPT/HCPCS: 99202 ==

== ENCOUNTER 2022-09-22 10:57 | Outpatient (AMB) | payer OTHER, SELFPAY ==
--- NOTE | 2022-09-22 11:06 | MHC.OFFVIS ---
Intake Vital Signs 09/22/22 12:01 09/22/22 12:01 Height 5 ft 2 in Weight 236 lb BMI 43.2 BP 200/100 H 197/88 H Blood Pressure Location Lt brachial Rt brachial Position Sitting Sitting Pulse 89 90 Pulse Source Pulse Oximeter Pulse Oximeter Pulse Oximetry (%) 97 97 Oxygen Delivery Method Room Air Room Air Comment bp recheck Intake Visit Reasons: Left Dx SNB at adductor canal Architectural Sales Consultant Required: No Accompanied by: Self / Same As Patient Allergies No Known Allergies [NO KNOWN ALLERGIES] Allergy (Unknown, Verified 09/22/22 12:02) UNKNOWN HPI Left Dx SNB at adductor canal HPI Details 57-year-old female presenting today for a left diagnostic SNB at adductor canal. The patient was referred by Jessica Falcon NP. Patient presents for scheduled procedure. Denies any recent cough, cold, infection, fever or other significant changes in medical history since last office visit. [facility] Medical History (Updated 09/02/22 @ 12:05 by Jessica Falcon APRN, NATHANAEL) Bilateral primary osteoarthritis of knee Eczema GERD (gastroesophageal reflux disease) Surgical History (Updated 09/02/22 @ 12:06 by Jessica Falcon APRN, WIRE DRAWING MACHINE OPERATOR) History of cholecystectomy Hx of hernia repair Social History (Updated 09/02/22 @ 12:07 by Jessica Falcon APRN, NATHANAEL) Alcohol intake: never Patient Tobacco Use Status: Current everyday Tobacco user Cigarettes Per Day: 10 Current occupational status: disabled Current occupation: rt hand Review of Systems Const All systems reviewed & are unremarkable except as noted in HPI and below Physical Exam Vital Signs: Last Vital Signs Pulse 90 09/22/22 12:01 BP 197/88 H 09/22/22 12:01 Pulse Ox 97 09/22/22 12:01 Oxygen Delivery Method Room Air 09/22/22 12:01 BMI result Body Mass Index 43.2 General: Appears afebrile. Alert and oriented. Mood and affect appropriate. Follows and participates in conversation appropriately. Respiratory effort is unlabored. Able to transition from sit to stand unassisted. Ambulates with bilaterally normal heel strike and toe off. Office Procedures Nerve Block Details: Left diagnostic saphenous nerve block with local anesthetic, US guided. After obtaining written consent, pre-procedure blood pressure and heart rate were stable and recorded in the nursing record. The patient was placed supine on the table. The medial thigh area overlying the adductor canal was widely prepped with chloraprep, allowed to dry and sterilely draped. Using ultrasound, the appropriate landmarks including the femoral artery and saphenous nerve were identified. The skin overlying the target was anesthetized with 0.5% lidocaine. A 21-gauge 100 mm echostim needle was advanced under sonographic guidance to the adductor canal. Aspiration was negative for heme and synovial fluid. 10 cc of lidocaine 1% was injected around the saphenous nerve. The needles were removed, skin cleansed and a sterile bandage was applied. The patient tolerated the procedure well and no complications were encountered. Following the procedure, the patient's vital signs and knee strength were stable. The patient was discharged home in good condition with post-procedural instructions. Time Out: Immediately prior to the procedure, the following was verbally confirmed that there is a signed consent form and that the correct patient, planned procedure, site and side are consistent with documentation and that necessary equipment and/or blood products are available prior to the start of the case. Complications: none EBL: <1 cc 33032 - Saphenous (Left) Procedure code (CPT) selection complete Results Reviewed Results Reviewed: No imaging is available for review. Assessment & Plan Assessment & Plan (1) Bilateral primary osteoarthritis of knee: Code(s): M17.0 - Bilateral primary osteoarthritis of knee Plan Patient is status post left diagnostic saphenous nerve block with local anesthetic, US guided. Patient tolerated procedure well and was discharged home in stable condition with discharge instructions. All questions were answered. We will follow-up in two weeks via telephone or in clinic to assess response to therapy. A follow-up appointment was made during today's visit. Scribed for Dr. Odonnell by Josemanuel Sims, medical office rep, on 09/22/2022. I, Dr. Odonnell, have personally reviewed and agree with the information entered by the scribe. Coding Level of Care Code Procedure Only Diagnoses Bilateral primary osteoarthritis of knee M17.0 CPT Codes Nerve Block - Nerve Block 10: 60338 - Saphenous ([id number])
[2022-09-22 12:01] VITALS: BP 197/88; BP 200/100; PULSE 89; PULSE 90; O2SAT 97; BMI 43.2
== END 2022-09-22 11:15 | disposition home or self-care (01) ==
PROVIDERS: PCP Internal Medicine; Visit Provider Internal Medicine
DX: M17.0 Bilateral primary osteoarthritis of knee (principal)
CPT/HCPCS: 64447; 64450

== ENCOUNTER → 2022-09-22 10:57 | Outpatient (BNVA) | payer OTHER, SELFPAY | PROVIDERS: PCP Internal Medicine; Visit Provider Internal Medicine | DX: M17.0 Bilateral primary osteoarthritis of knee (principal) | CPT/HCPCS: 64447 ==

== ENCOUNTER 2022-09-24 10:43 | Outpatient (AMB) | payer OTHER, SELFPAY ==
[2022-09-24 10:59] VITALS: BP 183/81; PULSE 89; RESP 16; BMI 39.3
--- NOTE | 2022-09-24 10:59 | A.OFFVIS_ITS ---
Intake Vital Signs 09/24/22 10:59 Height 5 ft 2 in Weight 215 lb 2 oz BMI 39.3 BP 183/81 H Blood Pressure Location Lt brachial Position Sitting Respiration 16 Pulse 89 Oxygen Delivery Method Room Air Intake Visit Reasons: s/p left Dx SNB at adductor canal Allergies No Known Allergies [NO KNOWN ALLERGIES] Allergy (Unknown, Verified 09/22/22 12:02) UNKNOWN HPI HPI Comments History of Present Illness Details Farrah presents back to the office today for follow up 2 days status post US guided left diagnostic saphenous nerve block with local anesthetic. Patient tolerated procedure well. Denies untoward effects. She reports 80% pain relief since the procedure with improvement in mobility and function. She would like to proceed with Sprint PNS on left and proceed with diagnostic SNB on right. Prior: Farrah is a pleasant 57-year-old female who presents to the office today on referral from Orthopedics for evaluation management of her chronic bilateral knee pain. Patient reports this pain has been going on since 2014. Started as severe right knee pain but over time is now in both knees and today reports that her left knee pain is more severe than her right. She has tried physical therapy, NSAIDs, steroid injections and had a right knee RFA 03/04/2021. Most recent steroid injection was given at the orthopedics office 1 month ago, she reports basically no change in her pain. Patient reports the pain is impacting her ability to sleep, perform activities daily living, care for herself and to function normally. She is on permanent disability and ambulates with a cane. She reports pain is worse with movements, walking and is present at all times of the day, today is 10/10. In terms of muscle damage condition is described as pulsing, throbbing, pounding, jumping, flushing, shooting, stabbing, lancinating, sharp, cutting, lacerating, pinching, cramping, crushing, dull, sore, hurting, aching, heavy, tight, squeezing and tearing. Patient reports she had a right diagnostic genicular nerve block followed by right genicular RFA. She had great results of the diagnostic testing but did not have any relief following the RFA. She states that the procedure was ?horrible and she is still traumatized. She was awake during the whole thing it was terribly painful. She is to take gabapentin for her pain which provided her some relief, she was able to sleep better with gabapentin. Patient's past medical history significant for bilateral knee osteoarthritis and acid reflux. Patient denies implantable devices, pacemaker and a defibrillator. Patient smokes approximately half pack a day, denies any use of alcohol or illicit drugs. [facility] Medical History (Updated 09/02/22 @ 12:05 by Jessica Falcon APRN, NATHANAEL) Bilateral primary osteoarthritis of knee Eczema GERD (gastroesophageal reflux disease) Surgical History (Updated 09/02/22 @ 12:06 by Jessica Falcon APRN, EXECUTIVE ADMINISTRATIVE ASST) History of cholecystectomy Hx of hernia repair Social History (Updated 09/02/22 @ 12:07 by Jessica Falcon APRN, NATHANAEL) Alcohol intake: never Patient Tobacco Use Status: Current everyday Tobacco user Cigarettes Per Day: 10 Current occupational status: disabled Current occupation: rt hand Review of Systems Const All systems reviewed & are unremarkable except as noted in HPI and below Physical Exam General: awake, alert, oriented. Answers questions appropriately. Fully engaged in examination. Skin: warm, dry, intact, Bruising noted at injection site without warmth, swelling, lymphadenopathy. HEENT: Normocephalic. Conjuntivae clear without exudate. Sclera non-icteric. Hearing intact. Cardiac: External chest normal in appearance. Respiratory: No signs of trauma. No signs of respiratory distress. No cough, audible wheezing or stridor. Abdomen: without gross distension. Neurological: Oriented to person, place, time and situation. Thought process intact. Psychiatric: Appropriate mood and affect. Good judgment and insight. Const Other: Extrem Right lower extremity: knee Details: tenderness Location: of the medial joint line, normal ROM and crepitus Left lower extremity: knee Details: normal ROM Results Reviewed Results Reviewed: 01/03/2022: EXAMINATION: AP STANDING BILATERAL KNEE. RIGHT KNEE. LEFT KNEE. AP bilateral knee: There is severe loss of medial compartment right knee and lateral compartment left knee. No bony erosive changes. No joint effusion. The soft tissues are normal. Left knee: There is moderate suprapatellar joint effusion with loss of patellofemoral compartment joint space and lateral patellar enthesophyte. No loose body seen. There is mild osteopenia. Right knee: There is moderate loss of patellar femoral compartment joint space with periapical articular spurring in moderate suprapatellar joint effusion. No fracture or loose body seen. IMPRESSION: Severe degenerative changes medial compartment right knee and lateral compartment left knee. No visible acute fracture, dislocation or subluxation seen. ? Degenerative changes patellar femoral compartment with periarticular spurring and moderate suprapatellar joint effusion in both knees. Assessment & Plan Assessment & Plan (1) Bilateral primary osteoarthritis of knee: Code(s): M17.0 - Bilateral primary osteoarthritis of knee Plan Farrah is a very pleasant 57 year old female who presented to the office today 2 days s/p US Guided Diagnostic Left Saphenous Nerve Block with local anesthetic. She reports 80% pain relief and improvement in function and mobility. Discussed peripheral nerve stimulation with Sprint, RFA and more permanent neuromodulation with Stimwave. Patient is interested in proceeding with Sprint PNS. Will schedule for US guided Left SN at Adductor Canal Sprint PNS with local anesthetic. She would also like to proceed with US Guided Diagnostic Right SNB at Adductor Canal with local anesthetic at this time with plan for Sprint PNS pending results of diagnostic testing. Justification for interventional therapy: ? Patient with average pain > 6/10 ? Patient has exhausted conservative therapy including physical therapy, NSAIDs, steroid injections. Patient is not a candidate for TKA at this time per Ortho note. The risks, consequences, alternatives, and benefits of various treatment options were discussed with the patient in great detail, including conservative management, injections and procedures. All questions and concerns have been answered and patient agreed with the plan. Follow up after injections and sooner if needed. Coding Level of Care Code Est Pt Level 3 (24395) Diagnoses Bilateral primary osteoarthritis of knee M17.0
== END 2022-09-24 10:58 | disposition home or self-care (01) ==
PROVIDERS: PCP Internal Medicine; Visit Provider Registered Nurse Emergency
DX: M17.0 Bilateral primary osteoarthritis of knee (principal)
CPT/HCPCS: 99213

== ENCOUNTER → 2022-09-24 10:43 | Outpatient (BNVA) | payer OTHER, SELFPAY | PROVIDERS: PCP Internal Medicine; Visit Provider Registered Nurse Emergency | DX: M17.0 Bilateral primary osteoarthritis of knee (principal); M25.562 Pain in left knee; M25.561 Pain in right knee; K21.9 Gastro-esophageal reflux disease without esophagitis; F17.210 Nicotine dependence, cigarettes, uncomplicated | CPT/HCPCS: 99212 ==

== ENCOUNTER 2022-10-13 08:02 | Outpatient (AMB) | payer OTHER, SELFPAY ==
[2022-10-13 08:06] VITALS: BP 184/88; PULSE 77; RESP 14; BMI 39.5
--- NOTE | 2022-10-13 08:06 | A.OFFVIS_ITS ---
Intake Vital Signs 10/13/22 08:06 Height 5 ft 2 in Weight 216 lb BMI 39.5 BP 184/88 H Blood Pressure Location Lt brachial Position Sitting Respiration 14 Pulse 77 Pulse Source Pulse Oximeter Intake Visit Reasons: right Dx SNB Allergies No Known Allergies [NO KNOWN ALLERGIES] Allergy (Unknown, Verified 10/13/22 08:10) UNKNOWN HPI right Dx SNB HPI Details 57-year-old female presenting today for a right diagnostic saphenous nerve block. The patient reports 100% relief following the procedure, which lasted about a week. She had numbness for about five days, which eventually resolved. She states that her pain started about five years ago. She states that her right knee pain is worse than her left knee.?She is currently taking Motrin and Tylenol. She states that her blood pressure reading is always elevated at the office. Past procedure: 09/22/22: Left diagnostic saphenous nerve block with local anesthetic, US guided: 100% relief for about a week. [facility] Medical History (Updated 09/02/22 @ 12:05 by Jessica Falcon APRN, NATHANAEL) Bilateral primary osteoarthritis of knee Eczema GERD (gastroesophageal reflux disease) Surgical History (Updated 09/02/22 @ 12:06 by Jessica Falcon APRN, NATHANAEL) History of cholecystectomy Hx of hernia repair Social History (Updated 09/02/22 @ 12:07 by Jessica Falcon APRN, NATHANAEL) Alcohol intake: never Patient Tobacco Use Status: Current everyday Tobacco user Cigarettes Per Day: 10 Current occupational status: disabled Current occupation: rt hand Review of Systems Const All systems reviewed & are unremarkable except as noted in HPI and below Physical Exam Vital Signs: Last Vital Signs Pulse 77 10/13/22 08:06 Resp 14 10/13/22 08:06 BP 184/88 H 10/13/22 08:06 BMI result Body Mass Index 39.5 General: Appears afebrile. Alert and oriented. Mood and affect appropriate. Follows and participates in conversation appropriately. Respiratory effort is unlabored. Able to transition from sit to stand unassisted. Ambulates with bilaterally normal heel strike and toe off. Office Procedures Nerve Block Details: Right diagnostic saphenous nerve block. After obtaining written consent, pre-procedure blood pressure and heart rate were stable and recorded in the nursing record. The patient was placed supine on the table. The medial thigh area overlying the adductor canal was widely prepped with chloraprep, allowed to dry and sterilely draped. Using ultrasound, the appropriate landmarks including the femoral artery and saphenous nerve were identified. The skin overlying the target was anesthetized with 0.5% lidocaine. A 21 gauge 100 mm echostim needle was advanced under sonographic guidance to the adductor canal. Aspiration was negative for heme and synovial fluid. 10 cc of lidocaine 1% was injected around the saphenous nerve. The needles were removed, skin cleansed and a sterile bandage was applied. The patient tolerated the procedure well and no complications were encountered. Following the procedure the patient's vital signs and knee strength were stable. The patient was discharged home in good condition with post-procedural instructions. Time Out: Immediately prior to the procedure, the following was verbally confirmed that there is a signed consent form and that the correct patient, planned procedure, site and side are consistent with documentation and that necessary equipment and/or blood products are available prior to the start of the case. Complications: none EBL: <1 cc. 85284 - Saphenous Procedure code (CPT) selection complete Results Reviewed Results Reviewed: No imaging is available for review. Assessment & Plan Assessment & Plan (1) Bilateral primary osteoarthritis of knee: Code(s): M17.0 - Bilateral primary osteoarthritis of knee Plan Patient is status post right diagnostic saphenous nerve block. Patient tolerated procedure well and was discharged home in stable condition with discharge instructions. All questions were answered. We will follow-up in two weeks via telephone or in clinic to assess response to therapy. A follow-up appointment was made during today's visit. Scribed for Dr. Odonnell by Josemanuel Sims certified ophthalmic medical technician, on 10/13/2022. I, Dr. Odonnell, have personally reviewed and agree with the information entered by the scribe. Coding Level of Care Code Procedure Only Diagnoses Bilateral primary osteoarthritis of knee M17.0 CPT Codes Nerve Block - Nerve Block 10: 90964 - Saphenous ([id number])
== END 2022-10-13 08:36 | disposition home or self-care (01) ==
PROVIDERS: PCP Internal Medicine; Visit Provider Internal Medicine
DX: M25.561 Pain in right knee (principal)
CPT/HCPCS: 64450

== ENCOUNTER → 2022-10-13 08:02 | Outpatient (BNVA) | payer OTHER, SELFPAY | PROVIDERS: PCP Internal Medicine; Visit Provider Internal Medicine | DX: M17.0 Bilateral primary osteoarthritis of knee (principal) | CPT/HCPCS: 64450 ==

== ENCOUNTER 2022-11-19 10:27 | Day surgery (SDC) | payer OTHER, SELFPAY ==
[2022-11-19 10:38] VITALS: BMI 39.5
[2022-11-19 10:44] VITALS: BP 152/92; PULSE 94; RESP 18; TEMP 36.1; O2SAT 94
[2022-11-19 12:25] VITALS: BP 158/88; PULSE 74; RESP 16; TEMP 36.1; O2SAT 98
--- NOTE | 2022-11-19 12:35 | P.BOP_ITS ---
Brief Operative Note Date of Service: 11/19/22 Pre-op diagnosis: Intractable left knee pain Post-op diagnosis: same Procedure: Temporary left saphenous nerve stimulator placement Implants: Sprint temporary PNS system Surgeon: Russell Odonnell MD Anesthesia: local Was an Senior Materials Scientist used for this Procedure?: No Estimated blood loss (mL): 1 Pathology: none sent Condition: stable Disposition: same day
--- NOTE | 2022-11-19 13:05 | P.OP_ITS ---
Operative Note Operative Note Date of Service: 11/19/22 Narrative: Peripheral Nerve Stimulation Temporary Lead Placement, Ultrasound-Guided, Saphenous Nerve, Left ? After the risks, benefits and alternatives were discussed with the patient and informed consentwas obtained, patient was placed in the supine position and padded to foster comfort. Appropriate skin and bony landmarks were identified, and pertinent vascular structures were located. The skin overlying the needle entry site was prepped and draped in sterile fashion. Ultrasound was used to identify the femoral artery, the femoral vein and the saphenous nerve. After identifying and marking the intended target along the course of the saphenous nerve, the skin around the planned entry point and the subcutaneous tissues were injected with local anesthetic. An introducer needle and stimulating probe were assembled, inserted and advanced along the intended course of the saphenous; nerve, taking care to maintain the proper depth of insertion as the introducer was advanced under ultrasound guidance. The introducer needle was delivered to a location in proximity to the nerve taking care not to puncture the femoral artery or the vein. Multiple stimulation parameters were used to deliver stimulation to the saphenous nerve in concert with stimulating at multiple positions around the nerve. Nerve target acquisition was confirmed noting generation of sensory and mild motor effects (paresthesia, muscle tension, etc) in the medial knee, leg and ankle; corresponding to the distribution of the saphenous nerve. Various electrical parameter combinations were tested, and the lead location was adjusted (physic ally relocated under ultrasound guidance) until the patient indicated medial knee paresthesia and tension overlapping the distribution of the patient?s typical region of pain. The stimulating probe was removed from the introducer and a percutaneous lead was guided through the needle and delivered to a location in similar proximity to the nerve. Final location was verified with electrical stimulation and documented. The introducer needle was removed, and the exposed end of the percutaneous lead was attached to an external stimulator unit. Various electrical parameter combinations were again tested until the patient indicated paresthesia and muscle tension overlapping the distribution of the patient?s typical region of pain. After confirming that lead impedance was in the normal range, the external unit was detached, the needle was removed, and the lead was anchored at the skin. The lead was threaded into the connector block and electrical continuity and desired patient response was confirmed. The connector block was attached to the external stimulator unit. The site was covered with a sterile occlusive dressing. A final ultrasound image was taken to document final placement. The patient was observed for stability of vital signs and comfort.
--- NOTE | 2022-11-20 13:58 | MHC.SHP ---
Pre-Procedural Eval Section A Date of Service: 11/19/22 The patient is an INPATIENT: No Changes since office visit: Yes Patient answered all questions The History & Physical has been completed within 30 days and I have reviewed it.: No Section B Chief Complaint: Bilateral primary osteoarthritis of knee Relevant Family History (Specify if Yes): No Relevant Social History: None Present Medications: see Short Stay Collaborative assessment Medical History: No relevant PMH History of Previous Operations: No relevant previous surgery Allergies: Allergies Allergy/AdvReac Type Severity Reaction Status Date / Time No Known Allergies Allergy Unknown UNKNOWN Verified 10/13/22 08:10 [NO KNOWN ALLERGIES] Review of Systems Sugical H&P ROS: Negative: Constitution, Cardiovascular and Respiratory Exam Surgical H&P Exam: Normal: HEENT, Normal: Heart and Normal: Lungs Plan Diagnosis/Plan: Unchanged I have reviewed the history and physical and performed a pertinent physical examination on my patient. No changes have occurred unless specified. Time Spent With Patient Time: Total time managing care of this patient today ____ minutes.
== END 2022-11-19 13:06 | disposition home or self-care (01) ==
PROVIDERS: PCP Internal Medicine; Visit Provider Internal Medicine
PROC: (CPT 64555; principal; 2022-11-19 12:00)
DX: M25.562 Pain in left knee (principal); M17.0 Bilateral primary osteoarthritis of knee; L30.9 Dermatitis, unspecified; K21.9 Gastro-esophageal reflux disease without esophagitis; F17.210 Nicotine dependence, cigarettes, uncomplicated
CPT/HCPCS: 64555; C1778

== ENCOUNTER → 2022-11-19 10:27 | Outpatient (BNV) | payer OTHER, SELFPAY | PROVIDERS: PCP Internal Medicine; Visit Provider Internal Medicine | DX: M25.562 Pain in left knee (principal) | CPT/HCPCS: 64555 ==

== ENCOUNTER 2022-11-26 08:29 | Outpatient (AMB) | payer OTHER, SELFPAY ==
[2022-11-26 08:43] VITALS: BP 168/74; PULSE 50; RESP 18; O2SAT 97; BMI 30.4
--- NOTE | 2022-11-26 08:43 | MHC.OFFVIS ---
Intake Vital Signs 11/26/22 08:43 Height 5 ft 2 in Weight 166 lb BMI 30.4 BP 168/74 H Blood Pressure Location Lt radial Position Sitting Respiration 18 Pulse 50 Pulse Source Pulse Oximeter Pulse Oximetry (%) 97 Oxygen Delivery Method Room Air Intake Visit Reasons: s/p Sprint/ VMB Full Unable to Confirm. Allergies No Known Allergies [NO KNOWN ALLERGIES] Allergy (Unknown, Verified 11/26/22 08:44) UNKNOWN HPI HPI Comments History of Present Illness Details Farrah presents to the office today for follow up 1 week status post US guided left Sprint PNS placement at . Patient tolerated procedure well. Denies untoward effects. She reports improvement in pain and function over the last 1 week. Pain today 5/10 with left leg extended but reports no pain if leg is relaxed. She describes that pain as feeling the vibration from the stimulator. She has been adjusting the settings on the Sprint and titrating as needed for pain. She would like to proceed with the Right Sprint PNS placement at . She reports that the diagnostic injection provided 80% pain relief for 2 days with improvement in mobility and function. Prior: Farrah is a pleasant 57-year-old female who presents to the office today on referral from Orthopedics for evaluation management of her chronic bilateral knee pain. Patient reports this pain has been going on since 2014. Started as severe right knee pain but over time is now in both knees and today reports that her left knee pain is more severe than her right. She has tried physical therapy, NSAIDs, steroid injections and had a right knee RFA 03/04/2021. Most recent steroid injection was given at the orthopedics office 1 month ago, she reports basically no change in her pain. Patient reports the pain is impacting her ability to sleep, perform activities daily living, care for herself and to function normally. She is on permanent disability and ambulates with a cane. She reports pain is worse with movements, walking and is present at all times of the day, today is 12/02. In terms of muscle damage condition is described as pulsing, throbbing, pounding, jumping, flushing, shooting, stabbing, lancinating, sharp, cutting, lacerating, pinching, cramping, crushing, dull, sore, hurting, aching, heavy, tight, squeezing and tearing. Patient reports she had a right diagnostic genicular nerve block followed by right genicular RFA. She had great results of the diagnostic testing but did not have any relief following the RFA. She states that the procedure was ?horrible and she is still traumatized. She was awake during the whole thing it was terribly painful. She is to take gabapentin for her pain which provided her some relief, she was able to sleep better with gabapentin. Patient's past medical history significant for bilateral knee osteoarthritis and acid reflux. Patient denies implantable devices, pacemaker and a defibrillator. Patient smokes approximately half pack a day, denies any use of alcohol or illicit drugs. [facility] Medical History (Updated 11/26/22 @ 09:07 by Jessica Falcon APRN, NATHANAEL) GERD (gastroesophageal reflux disease) Bilateral primary osteoarthritis of knee Eczema Surgical History (Updated 09/02/22 @ 12:06 by Jessica Falcon APRN, NATHANAEL) Hx of hernia repair History of cholecystectomy Social History (Updated 09/02/22 @ 12:07 by Jessica Falcon APRN, NATHANAEL) Alcohol intake: never Patient Tobacco Use Status: Current everyday Tobacco user Cigarettes Per Day: 10 Current occupational status: disabled Current occupation: rt hand Review of Systems Const All systems reviewed & are unremarkable except as noted in HPI and below Physical Exam Vital Signs: Last Vital Signs Pulse 50 11/26/22 08:43 Resp 18 11/26/22 08:43 BP 168/74 H 11/26/22 08:43 Pulse Ox 97 11/26/22 08:43 Oxygen Delivery Method Room Air 11/26/22 08:43 BMI result Body Mass Index 30.4 General: awake, alert, oriented. Answers questions appropriately. Fully engaged in examination. Skin: warm, dry, intact. HEENT: Normocephalic. Hearing intact. Cardiac: External chest normal in appearance. Respiratory: No cough, audible wheezing or stridor. Abdomen: without gross distension. Neurological: Oriented to person, place, time and situation. Thought process intact. Psychiatric: Appropriate mood and affect. Good judgment and insight. Sprint PNS site intact without redness, warmth, edema or drainage. Dressing removed, area cleansed with chloraprep, new dressing applied. Assessment & Plan Assessment & Plan (1) Bilateral primary osteoarthritis of knee: Code(s): M17.0 - Bilateral primary osteoarthritis of knee (2) Right knee pain: Code(s): M25.561 - Pain in right knee Qualifiers: Chronicity: chronic Qualified Code(s): M25.561 - Pain in right knee; G89.29 - Other chronic pain (3) Left knee pain: Code(s): M25.562 - Pain in left knee Qualifiers: Chronicity: chronic Qualified Code(s): M25.562 - Pain in left knee; G89.29 - Other chronic pain Plan Farrah is a very pleasant 57 year old female who presented to the office today 1 week s/p US Guided Diagnostic Left Saphenous Nerve Sprint PNS with local anesthetic. She reports improvement in pain, function and mobility. She is adjusting settings and increasing stimulation without difficulty. She would like to proceed with US guided Right SN at Adductor Canal Sprint PNS with local anesthetic. Justification for interventional therapy: ? Patient with average pain > 6/10 ? Patient has exhausted conservative therapy including physical therapy, NSAIDs, steroid injections. Patient is not a candidate for TKA at this time per Ortho note. The risks, consequences, alternatives, and benefits of various treatment options were discussed with the patient in great detail, including conservative management, injections and procedures. All questions and concerns have been answered and patient agreed with the plan. Follow up after procedure, sooner if needed. Coding Level of Care Code Est Pt Level 3 (63930) Diagnoses Bilateral primary osteoarthritis of knee M17.0 Chronic pain of right knee M25.561; G89.29 Chronicity: chronic Chronic pain of left knee M25.562; G89.29 Chronicity: chronic
== END 2022-11-26 09:05 | disposition home or self-care (01) ==
PROVIDERS: PCP Internal Medicine; Visit Provider Registered Nurse Emergency
DX: M17.0 Bilateral primary osteoarthritis of knee (principal); M25.561 Pain in right knee; G89.29 Other chronic pain; M25.562 Pain in left knee
CPT/HCPCS: 99024

== ENCOUNTER → 2022-11-26 08:29 | Outpatient (BNVA) | payer OTHER, SELFPAY | PROVIDERS: PCP Internal Medicine; Visit Provider Registered Nurse Emergency | DX: M17.0 Bilateral primary osteoarthritis of knee (principal); M25.561 Pain in right knee; M25.562 Pain in left knee; G89.29 Other chronic pain | CPT/HCPCS: 99212 ==

== ENCOUNTER 2023-01-14 08:31 | Outpatient (AMB) | payer OTHER, SELFPAY ==
--- NOTE | 2023-01-14 08:31 | A.OFFVIS_ITS ---
Intake Vital Signs 01/14/23 08:43 Height 5 ft 2 in Weight 208 lb BMI 38.0 BP 140/80 H Blood Pressure Location Lt brachial Position Sitting Respiration 16 Pulse 85 Pulse Source Pulse Oximeter Pulse Oximetry (%) 98 Oxygen Delivery Method Room Air Intake Visit Reasons: Sprint removal/unable to lvm Intake Note: Site was cleared no redness/drainage/swelling at site. Site clean with alcohol prep pad, and Provider applied band-aid. Lead was pulled and intact. Allergies No Known Allergies [NO KNOWN ALLERGIES] Allergy (Unknown, Verified 01/14/23 08:43) UNKNOWN HPI HPI Comments History of Present Illness Details Farrah presents to the office today for follow up and removal of left SN Sprint PNS. Patient reports continued improvement in pain, function and mobility. She is scheduled for right side in January. She is requesting refill on gabapentin, stating she used to be on higher dose and is hoping for an increase with this fill. She takes motrin as needed but gabapentin provides better relief. Prior: Farrah presents to the office today for follow up 1 week status post US guided left Sprint PNS placement at . Patient tolerated procedure well. Denies untoward effects. She reports improvement in pain and function over the last 1 week. Pain today 5/10 with left leg extended but reports no pain if leg is relaxed. She describes that pain as feeling the vibration from the stimulator. She has been adjusting the settings on the Sprint and titrating as needed for pain. She would like to proceed with the Right Sprint PNS placement at . She reports that the diagnostic injection provided 80% pain relief for 2 days with improvement in mobility and function. Prior: Farrah is a pleasant 57-year-old female who presents to the office today on referral from Orthopedics for evaluation management of her chronic bilateral knee pain. Patient reports this pain has been going on since 2014. Started as severe right knee pain but over time is now in both knees and today reports that her left knee pain is more severe than her right. She has tried physical therapy, NSAIDs, steroid injections and had a right knee RFA 03/04/2021. Most recent steroid injection was given at the orthopedics office 1 month ago, she reports basically no change in her pain. Patient reports the pain is impacting her ability to sleep, perform activities daily living, care for herself and to function normally. She is on permanent disability and ambulates with a cane. She reports pain is worse with movements, walking and is present at all times of the day, today is 12/02. In terms of muscle damage condition is described as pulsing, throbbing, pounding, jumping, flushing, shooting, stabbing, lancinating, sharp, cutting, lacerating, pinching, cramping, crushing, dull, sore, hurting, aching, heavy, tight, squeezing and tearing. Patient reports she had a right diagnostic genicular nerve block followed by right genicular RFA. She had great results of the diagnostic testing but did not have any relief following the RFA. She states that the procedure was ?horrible and she is still traumatized. She was awake during the whole thing it was terribly painful. She is to take gabapentin for her pain which provided her some relief, she was able to sleep better with gabapentin. Patient's past medical history significant for bilateral knee osteoarthritis and acid reflux. Patient denies implantable devices, pacemaker and a defibrillator. Patient smokes approximately half pack a day, denies any use of alcohol or illicit drugs. [facility] Medical History (Updated 11/26/22 @ 09:07 by Jessica Falcon APRN, NATHANAEL) GERD (gastroesophageal reflux disease) Bilateral primary osteoarthritis of knee Eczema Surgical History (Updated 09/02/22 @ 12:06 by Jessica Falcon APRN, NATHANAEL) Hx of hernia repair History of cholecystectomy (Updated 09/02/22 @ 12:07 by Jessica Falcon APRN, NATHANAEL) Alcohol intake: never Patient Tobacco Use Status: Current everyday Tobacco user Cigarettes Per Day: 10 Current occupational status: disabled Current occupation: rt hand Review of Systems Const All systems reviewed & are unremarkable except as noted in HPI and below Physical Exam Vital Signs: Last Vital Signs Pulse 85 01/14/23 08:43 Resp 16 01/14/23 08:43 BP 140/80 H 01/14/23 08:43 Pulse Ox 98 01/14/23 08:43 Oxygen Delivery Method Room Air 01/14/23 08:43 BMI result Body Mass Index 38.0 General: awake, alert, oriented. Answers questions appropriately. Fully engaged in examination. Skin: warm, dry, intact. HEENT: Normocephalic. Hearing intact. Cardiac: External chest normal in appearance. Respiratory: No cough, audible wheezing or stridor. Abdomen: without gross distension. Neurological: Oriented to person, place, time and situation. Thought process i ntact. Psychiatric: Appropriate mood and affect. Good judgment and insight. Left SN Sprint PNS removal: Dressing removed, Site dry, clean, intact. Area cleansed with chloraprep, lead removed with intact tip. Area cleansed again with chloraprep, bacitracin dressing with tegaderm applied. Patient tolerated removal well. Assessment & Plan Assessment & Plan (1) Bilateral primary osteoarthritis of knee: Code(s): M17.0 - Bilateral primary osteoarthritis of knee (2) Right knee pain: Code(s): M25.561 - Pain in right knee Qualifiers: Chronicity: chronic Qualified Code(s): M25.561 - Pain in right knee; G89.29 - Other chronic pain (3) Left knee pain: Code(s): M25.562 - Pain in left knee Qualifiers: Chronicity: chronic Qualified Code(s): M25.562 - Pain in left knee; G89.29 - Other chronic pain Plan Farrah is a very pleasant 57 year old female who presented to the office today for follow up and left SN Sprint PNS removal. She reports improvement in pain, function and mobility. Sprint device removed, as per above. She is scheduled for US guided Right SN at Adductor Canal Sprint PNS with local anesthetic in 1 month. Gabapentin 300mg po BID sent, patient instructed on use. Follow up after procedure, sooner if needed. Medications: Changed From gabapentin 100 mg PO BEDTIME 30 caps 1RF To gabapentin 300 mg PO BID 60 caps 3RF Coding Level of Care Code Est Pt Level 4 (50197) Diagnoses Bilateral primary osteoarthritis of knee M17.0 Chronic pain of right knee M25.561; G89.29 Chronicity: chronic Chronic pain of left knee M25.562; G89.29 Chronicity: chronic
[2023-01-14 08:43] VITALS: BP 140/80; PULSE 85; RESP 16; O2SAT 98; BMI 38.0
== END 2023-01-14 08:57 | disposition home or self-care (01) ==
PROVIDERS: PCP Internal Medicine; Visit Provider Registered Nurse Emergency
DX: M17.0 Bilateral primary osteoarthritis of knee (principal); M25.561 Pain in right knee; G89.29 Other chronic pain; M25.562 Pain in left knee
CPT/HCPCS: 99214

== ENCOUNTER → 2023-01-14 08:31 | Outpatient (BNVA) | payer OTHER, SELFPAY | PROVIDERS: PCP Internal Medicine; Visit Provider Registered Nurse Emergency | DX: M17.0 Bilateral primary osteoarthritis of knee (principal); M25.561 Pain in right knee; M25.562 Pain in left knee; G89.29 Other chronic pain | CPT/HCPCS: 99212 ==

== ENCOUNTER 2023-02-19 12:58 | Outpatient (AMB) | payer OTHER, SELFPAY ==
--- NOTE | 2023-02-19 13:05 | MHC.OFFVIS ---
Intake Vital Signs 02/19/23 13:09 Height 5 ft 2 in Weight 236 lb 8 oz BMI 43.3 BP 154/81 H Blood Pressure Location Lt brachial Position Sitting Pulse 72 Pulse Source Pulse Oximeter Pulse Oximetry (%) 96 Oxygen Delivery Method Room Air Intake Visit Reasons: Follow Up/Knee Pain/Confirmed Intake Note: Pain today 9/10 Back Shoe Cutter Required: No Accompanied by: Self / Same As Patient Allergies No Known Allergies [NO KNOWN ALLERGIES] Allergy (Unknown, Verified 02/19/23 13:10) UNKNOWN HPI HPI Comments History of Present Illness Details Farrah presents back to the office today for follow up. She cancelled Right Sprint placement procedure, reports pain in left knee returned 1 week after removal of the device so she decided against placement of the right side. Patient reports pain is 9/10, motrin with gabapentin helps some. She has not followed with ortho in approx 6 months, states she was offered replacement surgery but she is still smoking so is not ready to proceed. Steroid injections in the past were moderately beneficial, has not received gel injections in the past. Prior: Farrah presents to the office today for follow up and removal of left SN Sprint PNS. Patient reports continued improvement in pain, function and mobility. She is scheduled for right side in January. She is requesting refill on gabapentin, stating she used to be on higher dose and is hoping for an increase with this fill. She takes motrin as needed but gabapentin provides better relief. Prior: Farrah presents to the office today for follow up 1 week status post US guided left Sprint PNS placement at SN. Patient tolerated procedure well. Denies untoward effects. She reports improvement in pain and function over the last 1 week. Pain today 5/10 with left leg extended but reports no pain if leg is relaxed. She describes that pain as feeling the vibration from the stimulator. She has been adjusting the settings on the Sprint and titrating as needed for pain. She would like to proceed with the Right Sprint PNS placement at SN. She reports that the diagnostic injection provided 80% pain relief for 2 days with improvement in mobility and function. Prior: Farrah is a pleasant 57-year-old female who presents to the office today on referral from Orthopedics for evaluation management of her chronic bilateral knee pain. Patient reports this pain has been going on since 2014. Started as severe right knee pain but over time is now in both knees and today reports that her left knee pain is more severe than her right. She has tried physical therapy, NSAIDs, steroid injections and had a right knee RFA 03/04/2021. Most recent steroid injection was given at the orthopedics office 1 month ago, she reports basically no change in her pain. Patient reports the pain is impacting her ability to sleep, perform activities daily living, care for herself and to function normally. She is on permanent disability and ambulates with a cane. She reports pain is worse with movements, walking and is present at all times of the day, today is 12/02. In terms of muscle damage condition is described as pulsing, throbbing, pounding, jumping, flushing, shooting, stabbing, lancinating, sharp, cutting, lacerating, pinching, cramping, crushing, dull, sore, hurting, aching, heavy, tight, squeezing and tearing. Patient reports she had a right diagnostic genicular nerve block followed by right genicular RFA. She had great results of the diagnostic testing but did not have any relief following the RFA. She states that the procedure was ?horrible and she is still traumatized. She was awake during the whole thing it was terribly painful. She is to take gabapentin for her pain which provided her some relief, she was able to sleep better with gabapentin. Patient's past medical history significant for bilateral knee osteoarthritis and acid reflux. Patient denies implantable devices, pacemaker and a defibrillator. Patient smokes approximately half pack a day, denies any use of alcohol or illicit drugs. [facility] Medical History (Updated 11/26/22 @ 09:07 by Jessica Falcon APRN, NATHANAEL) GERD (gastroesophageal reflux disease) Bilateral primary osteoarthritis of knee Eczema Surgical History (Updated 09/02/22 @ 12:06 by Jessica Falcon APRN, NATHANAEL) Hx of hernia repair History of cholecystectomy Social History (Updated 09/02/22 @ 12:07 by Jessica Falcon APRN, NATHANAEL) Alcohol intake: never Patient Tobacco Use Status: Current everyday Tobacco user Cigarettes Per Day: 10 Current occupational status: disabled Current occupation: rt hand Review of Systems Const All systems reviewed & are unremarkable except as noted in HPI and below Physical Exam Vital Signs: Last Vital Signs Pulse 72 02/19/23 13:09 BP 154/81 H 02/19/23 13:09 Pulse Ox 96 12/28/23 13:09 Oxygen Delivery Method Room Air 02/19/23 13:09 BMI result Body Mass Index 43.3 General: awake, alert, oriented. Answers questions appropriately. Fully engaged in examination. Skin: warm, dry, intact. HEENT: Normocephalic. Hearing intact. Cardiac: External chest normal in appearance. Respiratory: No cough, audible wheezing or stridor. Abdomen: without gross distension. Neurological: Oriented to person, place, time and situation. Thought process intact. Ambulates with use of a cane. Psychiatric: Appropriate mood and affect. Good judgment and insight. Const Other: Extrem Right lower extremity: knee Details: tenderness Location: of the medial joint line, normal ROM and crepitus Left lower extremity: knee Details: normal ROM Results Reviewed Results Reviewed: 01/03/2022: EXAMINATION: AP STANDING BILATERAL KNEE. RIGHT KNEE. LEFT KNEE. AP bilateral knee: There is severe loss of medial compartment right knee and lateral compartment left knee. No bony erosive changes. No joint effusion. The soft tissues are normal. Left knee: There is moderate suprapatellar joint effusion with loss of patellofemoral compartment joint space and lateral patellar enthesophyte. No loose body seen. There is mild osteopenia. Right knee: There is moderate loss of patellar femoral compartment joint space with periapical articular spurring in moderate suprapatellar joint effusion. No fracture or loose body seen. IMPRESSION: Severe degenerative changes medial compartment right knee and lateral compartment left knee. No visible acute fracture, dislocation or subluxation seen. ? Degenerative changes patellar femoral compartment with periarticular spurring and moderate suprapatellar joint effusion in both knees. Assessment & Plan Assessment & Plan (1) Bilateral primary osteoarthritis of knee: Code(s): M17.0 - Bilateral primary osteoarthritis of knee (2) Right knee pain: Code(s): M25.561 - Pain in right knee Qualifiers: Chronicity: chronic Qualified Code(s): M25.561 - Pain in right knee; G89.29 - Other chronic pain (3) Left knee pain: Code(s): M25.562 - Pain in left knee Qualifiers: Chronicity: chronic Qualified Code(s): M25.562 - Pain in left knee; G89.29 - Other chronic pain Plan Patient presented to the office today for follow up bilateral knee pain. She is not interested in rescheduling Sprint device for Right knee, she states 1 week after removal of the left Sprint the pain returned. Lengthy discussion with patient about options for treatment. Her insurance denies coverage for genicular NB/RFA. Will increase Gabapentin to 600mg po TID Refill of Tylenol and Motrin sent today Will submit booking order for bilateral Synvisc injections for OA knees pending insurance approval. Patient aware she will be called to schedule. If insurance does not cover will plan for Fluoroscopy guided bilateral knee steroid injections with local anesthetic. Follow up after injections, sooner if needed. Medications: New gabapentin 600 mg PO TID 90 tabs 3RF Refilled acetaminophen ER 650 mg PO Q8H PRN 60 tabs 1RF pain Coding Level of Care Code Est Pt Level 4 (82224) Diagnoses Bilateral primary osteoarthritis of knee M17.0 Chronic pain of right knee M25.561; G89.29 Chronicity: chronic Chronic pain of left knee M25.562; G89.29 Chronicity: chronic
[2023-02-19 13:09] VITALS: BP 154/81; PULSE 72; O2SAT 96; BMI 43.3
== END 2023-02-19 13:39 | disposition home or self-care (01) ==
PROVIDERS: PCP Internal Medicine; Visit Provider Registered Nurse Emergency
DX: M17.0 Bilateral primary osteoarthritis of knee (principal); M25.561 Pain in right knee; G89.29 Other chronic pain; M25.562 Pain in left knee
CPT/HCPCS: 99214

== ENCOUNTER → 2023-02-19 12:58 | Outpatient (BNVA) | payer OTHER, SELFPAY | PROVIDERS: PCP Internal Medicine; Visit Provider Registered Nurse Emergency | DX: M17.0 Bilateral primary osteoarthritis of knee (principal); M25.561 Pain in right knee; M25.562 Pain in left knee; G89.29 Other chronic pain | CPT/HCPCS: 99212 ==

== ENCOUNTER 2023-06-19 12:35 | Outpatient (AMB) | payer OTHER, SELFPAY ==
--- NOTE | 2023-06-19 12:39 | MHC.OFFVIS ---
Vital Signs 06/19/23 12:50 Height 5 ft 2 in Weight 236 lb BMI 43.2 Intake Visit Reasons: OV- B/L knee pain, last injection 07/25/22 Intake Note: Farrah is a 57 year old female whop resents today for a follow up for her bilateral knee OA, 07/25/22. Patient reports that her last injections gave her a few days of relief. She states that she would like to start the process for gel injections. Patient tried and failed 3 + months of Tylenol/NSAIDs. Patient tried and failed knee braces for 3 + months. Allergies No Known Allergies [NO KNOWN ALLERGIES] Allergy (Unknown, Verified 06/19/23 12:49) UNKNOWN HPI HPI OV- B/L knee pain, last injection 07/25/22: Details: 57-year-old female who returns to the office today for a follow-up of bilateral knee pain. She had her last injection on 07/25/22 which provided her relief for a few days. She would like to start the process of gel injections. She has tried and failed 3+ months of braces and Tylenol/NSAIDS. [facility] Medical History (Updated 11/26/22 @ 09:07 by Jessica Falcon APRN, DENTAL HYGIENIST MOBILE COORDINATOR) GERD (gastroesophageal reflux disease) Bilateral primary osteoarthritis of knee Eczema Surgical History (Updated 09/02/22 @ 12:06 by Jessica Falcon APRN, DENTAL HYGIENIST MOBILE COORDINATOR) Hx of hernia repair History of cholecystectomy Social History Alcohol intake: never Patient Tobacco Use Status: Current everyday Tobacco user Cigarettes Per Day: 10 Current occupational status: disabled Current occupation: rt hand Review of Systems Const All systems reviewed & are unremarkable except as noted in HPI and below Physical Exam Vital Signs: BMI result Body Mass Index 43.2 Const General: cooperative and no acute distress Orientation/consciousness: patient oriented x3 Resp Effort & Inspection: normal respiratory effort and able to speak in complete sentences Cardio Peripheral pulses: Peripheral pulses 2+ throughout Neuro General: patient oriented x3 Extrem Other: Bilateral knee: Skin intact, no erythema or joint effusion. Windswept deformity. Tenderness along the medial and lateral joint line. Full ROM with crepitus. Negative Andrea?s. No ligamentous laxity. NVI. Office Procedures Joint Injection/Drain Joint Injection/Drain Primary Site: right knee Secondary Site: left knee Prep: site was prepped using aseptic technique, ethochloride spray was applied and injection warnings given Injected: 80 mg of, DepoMedrol, with 8 mL of, 1% plain lidocaine and in the joint Approach Used: anterolateral Procedure: The patient tolerated the procedure well and there was some relief with the local anesthesia Coding 36674 - Glenohumeral/Tronchanteric Bursa/Intraarticular Procedure code (CPT) selection complete Assessment & Plan Assessment & Plan (1) Bilateral primary osteoarthritis of knee: Code(s): M17.0 - Bilateral primary osteoarthritis of knee Category: Medical Plan We discussed options today which include steroid injection. They did consent to move forward with the bilateral knee injection, which was tolerated well. I recommended rest, ice and elevation and OTC anti-inflammatories PRN for discomfort. She would like to proceed with TKA. I explained to her it would be ideal for her to quit smoking as preparation of TKA. I explained the risk of smoking and anesthesia, bone / tissue healing. I encouraged her to get in touch with her PCP to discuss ways to quit smoking. I explained out NN Nora will be in touch with her to discuss the next steps in planning for TKA, she would like RT TKA first. Patient Instructions: Scribed for Jasmine Arguello PA-C, by Vernon Villareal medical case worker, on 06/19/2023 at 12:45 PM EST. I, Jasmine Arguello PA-C, have personally reviewed and agree with the information entered by the scribe. Coding Level of Care Code Est Pt Level 3 (77113) Diagnoses Bilateral primary osteoarthritis of knee M17.0 CPT Codes Coding - Joint 7: 67765 - Glenohumeral/Tronchanteric Bursa/Intraarticular ([id number])
[2023-06-19 12:50] VITALS: BMI 43.2
== END 2023-06-19 13:26 | disposition home or self-care (01) ==
PROVIDERS: PCP Internal Medicine; Visit Provider Physician Assistant
DX: M17.0 Bilateral primary osteoarthritis of knee (principal)
CPT/HCPCS: 20610; 99213

== ENCOUNTER → 2023-06-19 12:35 | Outpatient (BNVA) | payer OTHER, SELFPAY | PROVIDERS: PCP Internal Medicine; Visit Provider Physician Assistant | DX: M17.0 Bilateral primary osteoarthritis of knee (principal) | CPT/HCPCS: 20610; 99212; J1010 ==

== ENCOUNTER 2023-11-19 09:28 | Outpatient (REF) | payer OTHER, SELFPAY ==
--- NOTE | ~2023-11-19 | XR_ITS ---
EXAMINATION: XR KNEE, RIGHT CLINICAL INFORMATION: M17.11 - Unilateral primary osteoarthritis, right knee COMPARISON: 01/03/2022. TECHNIQUE: Three views of the right knee. FINDINGS: Mild osteopenia. No fracture, dislocation, or suspicious focal bony abnormality. Oceh-je-jzlq appearance lateral compartment with subchondral sclerosis, cystic changes and marginal osteophytes. There is evidence of likely moderate to severe lateral and patellofemoral compartment arthritis as well. There is mild medial subluxation of the condyles in relation to the tibia. There is mild valgus angulation of the joint. There may be a small to moderate size joint effusion. Soft tissues demonstrate the saphenous varicosities. XR/XR knee RT 3V IMPRESSION: 1. End-stage osteoarthritis most severe medial compartment. Mild valgus angulation of the joint. 2. Suspect joint effusion. Electronically signed by: Yordan Lassiter MD 01/26/2024 02:05 PM [facility]
--- NOTE | ~2023-11-19 | XR_ITS ---
EXAMINATION: XR KNEE, LEFT CLINICAL INFORMATION: M25.562 - Pain in left knee COMPARISON: 01/03/2022. TECHNIQUE: AP view of the left knee. FINDINGS: Limited AP view left knee demonstrates [id number] appearance lateral compartment with subchondral sclerosis, cystic changes, and marginal osteophytosis. There is remodeling of the lateral tibial plateau. Mild to moderate narrowing in the medial compartment with vacuum phenomenon. Subtle marginal osteophytic spurs. There is mild valgus angulation, which appears slightly worsened from the prior exam although this may be a projectional phenomenon. No soft tissue abnormalities aside from medial varicosities, and a solitary surgical clip in the medial left calf. XR/XR knee LT 1V IMPRESSION: 1. Tricompartmental osteoarthrosis, severe with gjuo-[id number] appearance within the lateral compartment. 2. Mildly increasing valgus angulation of the knee joint. Electronically signed by: Yordan Lassiter MD 01/26/2024 02:01 PM [facility]
== END 2023-11-19 09:29 | disposition home or self-care (01) ==
LOC: HO.XRAY 09:28
PROVIDERS: PCP Internal Medicine; Visit Provider Physician Assistant
DX: M25.562 Pain in left knee (principal); M17.11 Unilateral primary osteoarthritis, right knee
CPT/HCPCS: 73560; 73562; 99212

== ENCOUNTER → 2023-11-19 09:35 | Outpatient (BNV) | payer OTHER, SELFPAY | PROVIDERS: PCP Internal Medicine; Visit Provider Radiology Diagnostic Radiology | DX: M17.11 Unilateral primary osteoarthritis, right knee (principal); M25.562 Pain in left knee | CPT/HCPCS: 73560; 73562 ==

== ENCOUNTER 2023-11-19 10:06 | Outpatient (AMB) | payer OTHER, SELFPAY ==
--- OUTSIDE RECORDS SUMMARY | 2023-11-19 10:07 | XMS_ITS | Continuity of Care Document ---
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 Date(s): 06/20/23 - 06/21/[address] [address] Discharge Disposition: A-D/C Home Attending Physician: Ramya Davis MD Admitting Physician: Tino Osuna MD Referring Physician: Not on Staff, Referring MD Allergies, Adverse Reactions, Alerts Substance Reaction Severity Status fluconazole 1 Active 1severe rash and blisters Medications diazepam 5 mg oral tablet See Instructions, 1 tab PO 1 hr. prior to procedure. May repeat x 1 on arrival to [facility] if needed., #2 tablet, Refills 0, Tot. Refills 0, Maintenance, 03/01/21 14:15:00 EST, Instructions Replace Required Details, Route to [facility] Start Date: 03/01/21 Status: Ordered diclofenac 1% topical gel = 2 Gm, 3 times a day, 0 Refills, Maintenance, 10/22/20 8:57:00 EDT, Partial fill upon patient request if the prescription is for a schedule II opioid drug. Start Date: 10/22/20 Status: Ordered Gabapentin = 600 mg, By Mouth, 3 times a day, 0 Refills, Maintenance, 10/22/20 8:56:00 EDT, Partial fill upon patient request if the prescription is for a schedule II opioid drug. Start Date: 10/22/20 Status: Ordered levoFLOXacin 750 mg oral tablet = 750 mg, By Mouth, Every 24 hours, # 5 tablet, 0 Refills, Acute 06/26/23 21:00:00 EDT, 06/22/23 10:42:00 EDT, Tablet, [id number], Partial fill upon patient request if the prescription is fora schedule II opioid drug., 152, cm, 06/21/23 7:58:... Start Date: 06/22/23 Stop Date: 06/26/23 Status: Ordered Methadone = 36 mg, By Mouth, Daily, 0 Refills, Maintenance, 10/22/20 8:57:00 EDT, Partial fill upon patient request if the prescription is for a schedule II opioid drug. Start Date: 10/22/20 Status: Ordered Naproxen = 500 mg, By Mouth, Daily, 0 Refills, Maintenance, 10/22/20 8:56:00 EDT, Partial fill upon patient request if the prescription is for a schedule II opioid drug. Start Date: 10/22/20 Status: Ordered Omeprazole = 40 mg, By Mouth, Daily, 0 Refills, Maintenance, 12/11/20 14:23:00 EDT, Partial fill upon patient request if the prescription is for a schedule II opioid drug. Start Date: 12/11/20 Status: Ordered Tylenol 8 Hour 650 mg oral tablet, extended release 2 tablet = 1,300 mg, By Mouth, Every 8 hours, 0 Refills, Maintenance, 10/22/20 8:56:00 EDT, Partialfill upon patient request if the prescription is for a schedule II opioid drug. Start Date: 10/22/20 Status: Ordered Problem List Condition Confirmation Course Effective Dates Status H ealth Status Informant Pyelonephritis Confirmed Active Severe obesity Confirmed Active Persistent moderate somatic symptom disorder with predominant pain Confirmed Active Results Radiology Reports * Exam Date Time Procedure Performing Provider Status 06/20/23 6:38 PM Chest 2 Views Frontal and Lat Ramiro Brown (Verified) Notes: (Chest 2 Views Frontal and Lat) Reason For Exam: Shortness of Breath RESULT: Chest 2 Views Frontal and Lat Examination: Chest performed on 06/20/2023. History: Shortness of breath. Findings: Frontal and lateral views of the chest are compared to a prior study dated 08/07/2016. The cardiac and mediastinal silhouettes are within normal limits. Low lung volumes are present withbibasilar atelectasis. Pulmonary vascular congestion is seen. The osseous and soft tissue structures are unremarkable. Impression: Pulmonary vascular congestion. WSN: [id number] Ordering Physician: Vicky Almaraz Dictated By: Brenda Hull MD Dictated Date/Time: 06/20/23 6:40 pm Reviewed By: Brenda Hull MD Signed By: Brenda Hull MD Signed Date/Time: 06/20/23 6:40 pm Transcribed By: ALLISON Transcribed Date/Time: 06/20/23 6:40 pm Vital Signs Most recent to oldest [Reference Range]: 1 2 3 Height 152 cm (06/21/23 7:58 AM) 152 cm (06/20/23 11:10 PM) 152 cm (06/20/23 9:00 PM) Weight 93.10 kg (06/20/23 8:45 PM) 93.10 kg (06/20/23 8:43 PM) 93.4 kg (06/20/23 3:48 PM) Oxygen Saturation [94-100 %] 90 % *L* (06/21/23 7:58 AM) 94 % (06/20/23 11:10 PM) 96 % (06/20/23 8:43 PM) Pulse Rate [55-90 bpm] 71 bpm (06/21/23 7:58 AM) 78 bpm (06/20/23 11:10 PM) 78 bpm (06/20/23 8:45 PM) Body Mass Index [18.5-24.99 kg/m2] 40.3 kg/m2 *>HHI* (06/20/23 8:45 PM) 40.43 kg/m2 *>HHI* (06/20/23 3:48 PM) Blood Pressure [90-138/55-84 mm Hg] 174/92mm Hg 1 *H* (06/21/23 7:58 AM) 130/68mm Hg (06/20/23 11:10 PM) 130/68mm Hg (06/20/23 8:45 PM) Respiratory Rate [16-30 br/min] 18 br/min (06/21/23 7:58 AM) 20 br/min (06/20/23 11:10 PM) 20 br/min (06/20/23 8:45 PM) Temperature [96.8-100.4 DegF] 98.1 DegF (06/21/23 7:58 AM) 98.2 DegF (06/20/23 11:10 PM) 98.2 DegF (06/20/23 8:45 PM) Mode of Delivery (Oxygen) Room air (06/21/23 7:58 AM) Room air (06/20/23 11:10 PM) Room air (06/20/23 8:43 PM) Blood pressure sites Arm, right (06/21/23 7:58 AM) Arm, right (06/20/23 11:10 PM) Arm, right (06/20/23 8:45 PM) Temperature Route Oral (06/21/23 7:58 AM) Oral (06/20/23 11:10 PM) Oral (06/20/23 8:45 PM) Dry Weight 93.10 kg (06/20/23 8:45 PM) 93.0 kg (06/20/23 3:48 PM) Weight Obtained Via Standing scale (06/20/23 8:43 PM) Standing scale (06/20/23 3:48 PM) Dry Weight Obtained Via Standing scale (06/20/23 3:48 PM) 1Result Comment: notfiy the nurse . Admission evaluation note * [place] MALONE, Bakari Benavides: PERFORM, MODIFY Event Display: Admission Note Authored Date: Patient: ??CASH MCALLISTER ? Age:??57 Years?Sex:??Female?:??1965?? Chief Complaint/Reason for Consultation called back for positive blood culture History of Present Illness ??57-year-old female patient with a prior history of substance use disorder (previously on Methadone) who presented to the ED on 06/15 with right flank pain and was diagnosed with urinary tract infection who is now being called back for E.coli bacteremia. ?? Patient initially presented to the emergency department on June 15 with acute right flank pain anddark urine.?? Her blood work was significant for leukocytosis with WBC of 12.5, urinalysis positivefor WBC above 182, leukocyte Estrace and nitrate and RBCs.?? CT abdomen and pelvis showed mild thickening and left urothelial enhancement suggestive of urinary tract infection. She was given one doseof ceftriaxone and sent home on cefpodoxime. ?? Her blood culture came back positive for e.coli and therefore was called to come to ED. she has been afebrile, hemodynamically stable, on room air with oxygen saturation.?? Her labs are significant for mild leukocytosis with WBC of 11.8. She was given ceftriaxone and being admitted for further management. ?? She reports her flank pain has resolved but the antibiotics is causing soreness in her throat. Review of Systems Constitutional:?No weight loss, fever, chills, weakness or fatigue. Cardiovascular:??No chest pain,pressure or discomfort. No palpitations or pedal edema. Respiratory:??No shortness of breath, cough or sputum production. Gastrointestinal:?No anorexia, nausea, vomiting or diarrhea. No abdominal pain or blood in stool. Genitourinary: No burning micturition. No urinary frequency or incontinence. Neurologic: No headache, dizziness, syncope, unilateral weakness, ataxia, numbness or tingling in the extremities. No change in bowel or bladder control. Musculoskeletal: No muscle pain, back pain, joint pain or stiffness. Hematologic: No bleeding or bruising. Lymphatics: No enlarged lymph nodes. Psychiatric: No depression or anxiety. Endocrine: No reports of sweating. No cold or heat intolerance. No polyuria or polydipsia. All other systems were reviewed and are negative.?? Objective Vital Signs?? Temperature: 97.7 DegF (06/20/23 20:43:00) Temperature Route: Oral (06/20/23 20:43:00) Pulse Rate: 73 bpm (06/20/23 20:43:00) Respiratory Rate: 22 br/min (06/20/23 20:43:00) Systolic Blood Pressure:??146 mm Hg??High (06/20/23 20:43:00) Diastolic Blood Pressure: 76 mm Hg (06/20/23 20:43:00) Blood pressure sites: Arm, right (06/20/23 20:43:00) Mean Arterial Pressure: 99 mm Hg (06/20/23 20:43:00) Pulse Pressure: 70 mm Hg (06/20/23 20:43:00) Oxygen Saturation: 96 % (06/20/23 20:43:00) Mode of Delivery (Oxygen): Room air (06/20/23 20:43:00) Early Warning Score: 4 (06/20/23 20:44:11) ? Physical Exam Constitutional: Alert, in no acute distress. Head: Normocephalic. Eyes: Pupils are equal, round and reactive to light. Extraocular muscles intact. No pallor or scleral icterus Ear, Nose and Throat: mucous membranes moist. Ears and nose - no obvious deformities. Neck: No JVD or bruits. Respiratory:??Clear to auscultation. No wheezing or rhonchi.??No use of accessory muscles. Cardiovascular:??S1 S2 regular. No murmurs, rubs or gallops. Gastrointestinal:??Abdomen soft, non-tender, non-distended. Normal bowel sounds. No pulsatile mass.No hepatosplenomegaly. Genitourinary:??No costovertebral angle tenderness. Extremities: No lower extremity pitting edema. No cyanosis or clubbing. Neurologic:??AAOx3, Cranial nerves II-XII grossly intact. Speech normal, no facial droop. No focal neurological deficits. Moves all extremities spontaneously. Musculoskeletal:??No gross deformities on inspection. Psychiatric: Normal mood and affect. Assessment/Plan ??57-year-old female patient with a prior history of substance use disorder (previously on Methadone) who presented to the ED on 06/15 with right flank pain and was diagnosed with urinary tract infection who is now being called back for E.coli bacteremia. ?? Diagnoses 1. ??Urinary tract infection ??(N39.0) 2. ??Bacteremia ??(R78.81) ?? Urinary tract infection (N39.0):??- Bacteremia (R78.81):??- Initially presented with right flank pain which has resolved. Labs significant for leukocytosis WBC of 12.5-11.8. urinalysis positive for WBC above 182, leukocyte Estrace and nitrate and RBCs.?? CT abdomen and pelvis showed mild thickening and left urothelial enhancement suggestive of urinary tract infection. blood culture and urine culture??positive for pansensitive e.coli. She reports antibiotics (CTX-cefpodoxime)??is causing soreness in her throat. - start??levaquin. - f/u repeat blood culture. ?? VTE Prophylaxis:??heparin SC Code Status:??full code ? Histories Allergies Allergies ?(Active and Proposed Allergies Only) fluconazole? (Severity: Unknown severity, Onset: Unknown) ?Comments: severe rash and blisters ? Past Medical History/Problem List Active Problems(3) Persistent moderate somatic symptom disorder with predominant pain Pyelonephritis Severe obesity ? Past Surgical History No surgery history documented. ? Social History No social history documented. ? Family History No Family History documented. ? Medications Home Medications Acetaminophen (Tylenol 8 Hour 650 mg oral tablet, extended release)?2?tab(s)?1,300?Milligram?By Mouth?Every 8 hours Cefpodoxime (cefpodoxime 200 mg oral tablet)?1?tab(s)?200?Milligram?By Mouth?Every 12 hours?for 10?Days Cefpodoxime (cefpodoxime 200 mg oral tablet)?1?tab(s)?200?Milligram?By Mouth?Every 12 hours?for 10?Days Diazepam (diazepam 5 mg oral tablet)?See Instructions?1 tab PO 1 hr. prior to procedure. ??May repeat x 1 on arrival to [facility] if needed. Diclofenac Topical (diclofenac 1% topical gel)?2?gram?3 times a day Gabapentin?600?Milligram?By Mouth?3 times a day Methadone?36?Milligram?By Mouth?Daily Naproxen?500?Milligram?By Mouth?Daily Omeprazole?40?Milligram?By Mouth?Daily ? Results Recent Labs BACTERIOLOGY Urine Culture Results Final report (Abnormal)?? 06/16/2023 20:00 Blood Cult Antimicrobial Susceptibility Comment ()?? 06/16/2023 17:46 ?? BLOOD COUNT & DIFF WBC 11.8 k/mm3 (High)?? 06/20/2023 16:32 RBC 4.63 m/mm3 ()?? 06/20/2023 16:32 Hgb 13.3 Gm/dL ()?? 06/20/2023 16:32 Hct 39.6 % ()?? 06/20/2023 16:32 MCV 85.5 femtoliters ()?? 06/20/2023 16:32 MCH 28.7 pg ()?? 06/20/2023 16:32 MCHC 33.6 g/dL ()?? 06/20/2023 16:32 Platelet Count 340 k/mm3 ()?? 06/20/2023 16:32 RDW-SD 39.4 femtoliters ()?? 06/20/2023 16:32 MPV 10.5 femtoliters ()?? 06/20/2023 16:32 Nucleated RBC (Automated) 0.0 #/100 WBC'S ()?? 06/20/2023 16:32 Abs. NRBC 0.0 k/mm3 ()?? 06/20/2023 16:32 Abs. Neut 7.1 k/mm3 (High)?? 06/20/2023 16:32 Abs. Lymph 3.8 k/mm3 (High)?? 06/20/2023 16:32 Abs. [place] 0.7 k/mm3 ()?? 06/20/2023 16:32 Abs. Eo 0.1 k/mm3 ()?? 06/20/2023 16:32 Abs. Baso 0.0 k/mm3 ()?? 06/20/2023 16:32 Neut % 59.8 % ()?? 06/20/2023 16:32 Lymph % 32.2 % ()?? 06/20/2023 16:32 [place] % 6.0 % ()?? 06/20/2023 16:32 Eos % 1.1 % ()?? 06/20/2023 16:32 Baso % 0.3 % ()?? 06/20/2023 16:32 Imm Gran 0.6 % ()?? 06/20/2023 16:32 Abs. Imm Gran 0.1 k/mm3 ()?? 06/20/2023 16:32 ?? CHEM GENERAL Sodium 141 mmol/L ()?? 06/20/2023 16:32 Potassium 4.2 mmol/L ()?? 06/20/2023 16:32 Chloride 102 mmol/L ()?? 06/20/2023 16:32 Bicarbonate Level 23 mmol/L ()?? 06/20/2023 16:32 Anion Gap 16 ()?? 06/20/2023 16:32 Glucose Level 110 mg/dL (High)?? 06/20/2023 16:32 BUN 13 mg/dL ()?? 06/20/2023 16:32 Creatinine-Blood 0.7 mg/dL ()?? 06/20/2023 16:32 Estimated GFR Creatinine 99 ML/MIN/1.73 M2 ()?? 06/20/2023 16:32 Calcium 9.4 mg/dL ()?? 06/20/2023 16:32 Protein, Total 6.9 Gm/dL ()?? 06/20/2023 16:32 Albumin 4.1 Gm/dL ()?? 06/20/2023 16:32 AG Ratio 1.5 ()?? 06/20/2023 16:32 Alkaline Phosphatase 112 units/L (High)?? 06/20/2023 16:32 AST (SGOT) 11 units/L ()?? 06/20/2023 16:32 ALT (SGPT) 13 units/L ()?? 06/20/2023 16:32 Bilirubin, Total <0.2 mg/dL ()?? 06/20/2023 16:32 Lactate 1.8 mmol/L ()?? 06/20/2023 16:32 ?? HEME OTHER Hold Blue Top SPECIMEN DISCARDED AFTER 4 HOURS. ()?? 06/20/2023 16:32 ?? MISC. CHEMISTRY Hold Green Top SPECIMEN DISCARDED AFTER 1 WEEK ()?? 06/20/2023 16:32 ?? UA/URINALYSIS Appear/Color, Urine LIGHT YELLOW ()?? 06/20/2023 19:00 Specific Kipling, Urine 1.016 ()?? 06/20/2023 19:00 pH, Urine 6.0 ()?? 06/20/2023 19:00 Albumin, Urine TRACE (Abnormal)?? 06/20/2023 19:00 Glucose, Urine NEGATIVE ()?? 06/20/2023 19:00 Ketones, Urine NEGATIVE ()?? 06/20/2023 19:00 Bilirubin, Urine NEGATIVE ()?? 06/20/2023 19:00 Hemoglobin, Urine NEGATIVE ()?? 06/20/2023 19:00 Nitrite, Urine NEGATIVE ()?? 06/20/2023 19:00 Leukocyte, Urine TRACE (Abnormal)?? 06/20/2023 19:00 Urobilinogen NORMAL mg/dL ()?? 06/20/2023 19:00 WBC's, Urine 7 /HPF (High)?? 06/20/2023 19:00 RBC's, Urine NONE SEEN /HPF ()?? 06/20/2023 19:00 Squamous Epith <1 /HPF ()?? 06/20/2023 19:00 Mucus SLIGHT /LPF ()?? 06/20/2023 19:00 ?? URINE OTHER Est Creatinine Clearance 63.18 mL/min ()?? 06/20/2023 17:33 Urine Cult Antimicrobial Susceptibility Comment ()?? 06/16/2023 20:00 ? EKG study * Event Display: ECG 12-Lead Authored Date: Please click on pdf link to open report * Event Display: ECG 12-Lead Authored Date: Ventricular Rate: 74 BPM Atrial Rate: 74 BPM P-R Interval: 168 ms QRS Duration: 86 ms Q-T Interval: 410 ms QTC Calculation(Bazett): 455 ms P [place]: 54 degrees R [place]: 5 degrees T [place]: 27 degrees Sinus rhythm with frequent Premature ventricular complexes and Premature atrial complexes Minimal voltage criteria for LVH, may be normal variant ( R in aVL ) Borderline ECG When compared with ECG of 16-JUN-2023 17:33, Premature ventricular complexes are now Present Premature atrial complexes are now Present Confirmed by Omer Rodriguez ([id number]) on 06/21/2023 7:32:53 AM Simpson: Omer Rodriguez [facility] Progress note * Krysta Carlisle RN: PERFORM, SIGN, VERIFY Event Display: Progress Note Hospital Authored Date: Patient: CASH MCALLISTER Age: 57 years Sex: Female : 1965 Associated Diagnoses: None Author: Krysta Carlisle RN Findings Problem Related to Alteration in Genitourinary : Alteration in Genitourinary Function/new 06/21/2023 12:47 EDT Alteration in Status Related to Other: pyelonephritis Goals & Outcomes, Genitourinary Pt will achieve normal/improved fluid balance, Pt will maintainadequate GI function appropriate for pt, Pt will maintain adequate function appropriate for pt, Pt will maintain normal fluid balance, Pt will resume normal pattern of elimination Interventions, Assess/monitor/maintain Genitourinary status, Assist & encourage pt with meticulous norberto care, Encourage PO fluid intake as allowed by diet BH Goals/Interventions, Genitourinary Yes Genitourinary, Problem Start 06/21/2023 12:48 Reviewed Plan with, Genitourinary Patient Patient Progression, Genitourinary Patient progressing according to plan Genitourinary, Problem Ongoing Yes . Nursing Data Vital Signs : VITAL SIGNS SECTION 06/21/2023 7:58 EDT Early Warning Score 2.00 06/21/2023 7:58 EDT Temperature 98.1 DegF Temperature Route Oral Pulse Rate 71 bpm Respiratory Rate 18 br/min Systolic Blood Pressure 174 mm Hg H Diastolic Blood Pressure 92 mm Hg H Blood pressure sites Arm, right Mean Arterial Pressure 119 mm Hg Pulse Pressure 82 mm Hg Oxygen Saturation 90 % L Mode of Delivery (Oxygen) Room air . Narrative/Incidental Patient is alert and orientedx4. Tolerated oral medications well. No c/o pain. No s/s of respiratory distress, breathing freely on room air. Ambulates in room with a cane. Able to make needs known. Call steele within reach at all times. Pt offers no concerns complaints, or questions at this time. Pt discharged home. . Discharge Information Case Management Discharge Plan : Case Management Discharge Plan Data 06/16/2023 20:52 EDT Discharge Level of Care at Discharge Home/Custodial/Foster Care * Sobia Pathak RN: PERFORM, SIGN, VERIFY Event Display: Progress Note Hospital Authored Date: [id number] Patient: CASH MCALLISTER Age: 57 years Sex: Female : 1965 Associated Diagnoses: None Author: Lawson HERRING, Sobia Findings Evaluation Patient A&O,VSS, admitted with Dx pylonephritis bacteremia, no acute distress during the shift,c/o oral soreness,says she noticed it after a few days of using cefpodoxime, lower lip sl swollen and pt c/o discomfort to the upper palate. Cross covering notified with request for oral rinse. LSCTA, BS + X4 quads, says last bm 06/19/23. BLE with 1+ edema. Skin with moisture to abd folds and below breast. lg callous to right foot plantar, says it is uncomfortable with ambulation. Pt ambulates with a cane at baseline, denied falls, ptindependent mobility. Pt able to make needs known, oriented to call light, call light within reach,safety maintained.. Discharge Information Case Management Discharge Plan : Case Management Discharge Plan Data 06/16/2023 20:52 EDT Discharge Level of Care at Discharge Home/Custodial/Foster Care Note * Krysta Carlisle RN: PERFORM Event Display: Discharge/Transfer Note Hospital Authored Date: [id number] Nursing Discharge Note Entered On: 06/21/2023 12:52 EDT Performed On: 06/21/2023 12:52 EDT by Krysta Carlisle RN Nursing Discharge Note 2 Discharge Time : 06/21/2023 12:50 EDT Discharge Level of Care at Discharge : Home/Custodial/Foster Care Patient Left Unit Via : Wheelchair Patient Accompanied Off Unit with : Responsible adult DC Instructions Provided & Signed by Pt : Yes Patient Understands D/C Instructions : Yes Patient Instructions Discharge Signed : Yes Did Pt have Specialty Bed or Wound Vac : No Krysta Carlisle RN - 06/21/2023 12:52 EDT * Ramya Davis MD: PERFORM Event Display: Discharge/Transfer Note Hospital Authored Date: [id number] Patient: ??CASH MCALLISTER ? Age:??57 Years?Sex:??Female?:??1965?? Patient Information Discharge Location: W3 Primary Care Physician: Not on Staff, PCP Admit Date/Time: 06/20/23 18:47 Discharge Disposition Discharge Disposition: Home: No Services Discharge Diagnosis Urinary tract infection (N39.0) Bacteremia (R78.81) _ Discharge Medications Acetaminophen (Tylenol 8 Hour 650 mg oral tablet, extended release)?2?tab(s)?1,300?Milligram?By Mouth?Every 8 hours Diazepam (diazepam 5 mg oral tablet)?See Instructions?1 tab PO 1 hr. prior to procedure. ??May repeat x 1 on arrival to [facility] if needed. Diclofenac Topical (diclofenac 1% topical gel)?2?gram?3 times a day Gabapentin?600?Milligram?By Mouth?3 times a day Levofloxacin (levoFLOXacin 750 mg oral tablet)?750?Milligram?By Mouth?Every 24 hours Methadone?36?Milligram?By Mouth?Daily Naproxen?500?Milligram?By Mouth?Daily Omeprazole?40?Milligram?By Mouth?Daily ? Medications Started levofloxacin Medications Discontinued cefpodoxime Doses Changed none Allergies Allergies ?(Active and Proposed Allergies Only) fluconazole? (Severity: Unknown severity, Onset: Unknown) ?Comments: severe rash and blisters ? PCP Follow-Up/Heads-Up Admitted for E coli bacteremia due to pyelonephritis complicated by oral sores from po cefpodoxime at home . Hospital Course 57-year-old female patient with a prior history of substance use disorder (previously on Methadone)who presented to the ED on 06/15 with right flank pain and was diagnosed with urinary tract infection who is now being called back for E.coli bacteremia ?? Patient was admitted for Pansensitive Ecoli bacteremia in setting of E coli UTI/clinical pyelonephritis. Was taking cefpodoxime on 06/16 but developed mouth sores. Switched to levofloxacin, and will cont to take 5 more days at home, 10 total days. ?? Stable for discharge ?? Objective Feeling ok. Symptoms had resolved already??but sores are still painful. Wants to go home. ? Vital Signs?? Temperature: 98.1 DegF (06/21/23 07:58:00) Temperature Route: Oral (06/21/23 07:58:00) Pulse Rate: 71 bpm (06/21/23 07:58:00) Respiratory Rate: 18 br/min (06/21/23 07:58:00) Systolic Blood Pressure:??174 mm Hg??High (06/21/23 07:58:00) Diastolic Blood Pressure:??92 mm Hg??High (06/21/23 07:58:00) Blood pressure sites: Arm, right (06/21/23 07:58:00) Mean Arterial Pressure: 119 mm Hg (06/21/23 07:58:00) Pulse Pressure: 82 mm Hg (06/21/23 07:58:00) Oxygen Saturation:??90 %??Low (06/21/23 07:58:00) Mode of Delivery (Oxygen): Room air (06/21/23 07:58:00) Early Warning Score: 2 (06/21/23 07:58:43) ? . Physical Exam Constitutional: Alert, in no distress. Oriented??x 3.?? Oral: Sore on top of oral cavity?? Respiratory: Clear lungs, no wheezing. No accessory muscle use Cardiovascular: S1 S2 regular. No murmurs Gastrointestinal: Abdomen soft, no abdominal tenderness, non-distended. Normal bowel sounds.?? Neurologic: Moving all extremities spontaneously. Psychiatric: Normal mood and affect Extremities: No lower extremity??edema. Patient Instructions Starting tomorrow, take levofloxacin once a day for 5 more days? You can use over the counter OraGel for pain Post Discharge Care Diet: ??Cardiac diet ?? Activity: ??Ambulate with assistance 3 times a day unless otherwise specified ?? Code Status: ??Full Resuscitation ?? Condition: ??good ?? Prognosis: ??Good ?? Results Discharge Labs BLOOD COUNT & DIFF WBC 11.8 k/mm3 (High)?? 06/20/2023 16:32 RBC 4.63 m/mm3 ()?? 06/20/2023 16:32 Hgb 13.3 Gm/dL ()?? 06/20/2023 16:32 Hct 39.6 % ()?? 06/20/2023 16:32 MCV 85.5 femtoliters ()?? 06/20/2023 16:32 MCH 28.7 pg ()?? 06/20/2023 16:32 MCHC 33.6 g/dL ()?? 06/20/2023 16:32 Platelet Count 340 k/mm3 ()?? 06/20/2023 16:32 RDW-SD 39.4 femtoliters ()?? 06/20/2023 16:32 MPV 10.5 femtoliters ()?? 06/20/2023 16:32 Nucleated RBC (Automated) 0.0 #/100 WBC'S ()?? 06/20/2023 16:32 Abs. NRBC 0.0 k/mm3 ()?? 06/20/2023 16:32 Abs. Neut 7.1 k/mm3 (High)?? 06/20/2023 16:32 Abs. Lymph 3.8 k/mm3 (High)?? 06/20/2023 16:32 Abs. [place] 0.7 k/mm3 ()?? 06/20/2023 16:32 Abs. Eo 0.1 k/mm3 ()?? 06/20/2023 16:32 Abs. Baso 0.0 k/mm3 ()?? 06/20/2023 16:32 Neut % 59.8 % ()?? 06/20/2023 16:32 Lymph % 32.2 % ()?? 06/20/2023 16:32 [place] % 6.0 % ()?? 06/20/2023 16:32 Eos % 1.1 % ()?? 06/20/2023 16:32 Baso % 0.3 % ()?? 06/20/2023 16:32 Imm Gran 0.6 % ()?? 06/20/2023 16:32 Abs. Imm Gran 0.1 k/mm3 ()?? 06/20/2023 16:32 ?? CHEM GENERAL Sodium 141 mmol/L ()?? 06/20/2023 16:32 Potassium 4.2 mmol/L ()?? 06/20/2023 16:32 Chloride 102 mmol/L ()?? 06/20/2023 16:32 Bicarbonate Level 23 mmol/L ()?? 06/20/2023 16:32 Anion Gap 16 ()?? 06/20/2023 16:32 Glucose Level 110 mg/dL (High)?? 06/20/2023 16:32 BUN 13 mg/dL ()?? 06/20/2023 16:32 Creatinine-Blood 0.7 mg/dL ()?? 06/20/2023 16:32 Estimated GFR Creatinine 99 ML/MIN/1.73 M2 ()?? 06/20/2023 16:32 Calcium 9.4 mg/dL ()?? 06/20/2023 16:32 Protein, Total 6.9 Gm/dL ()?? 06/20/2023 16:32 Albumin 4.1 Gm/dL ()?? 06/20/2023 16:32 AG Ratio 1.5 ()?? 06/20/2023 16:32 Alkaline Phosphatase 112 units/L (High)?? 06/20/2023 16:32 AST (SGOT) 11 units/L ()?? 06/20/2023 16:32 ALT (SGPT) 13 units/L ()?? 06/20/2023 16:32 Bilirubin, Total <0.2 mg/dL ()?? 06/20/2023 16:32 Lactate 1.8 mmol/L ()?? 06/20/2023 16:32 ?? HEME OTHER Hold Blue Top SPECIMEN DISCARDED AFTER 4 HOURS. ()?? 06/20/2023 16:32 ? MISC. CHEMISTRY Hold Green Top SPECIMEN DISCARDED AFTER 1 WEEK ()?? 06/20/2023 16:32 ? UA/URINALYSIS Appear/Color, Urine LIGHT YELLOW ()?? 06/20/2023 19:00 Specific Kipling, Urine 1.016 ()?? 06/20/2023 19:00 pH, Urine 6.0 ()?? 06/20/2023 19:00 Albumin, Urine TRACE (Abnormal)?? 06/20/2023 19:00 Glucose, Urine NEGATIVE ()?? 06/20/2023 19:00 Ketones, Urine NEGATIVE ()?? 06/20/2023 19:00 Bilirubin, Urine NEGATIVE ()?? 06/20/2023 19:00 Hemoglobin, Urine NEGATIVE ()?? 06/20/2023 19:00 Nitrite, Urine NEGATIVE ()?? 06/20/2023 19:00 Leukocyte, Urine TRACE (Abnormal)?? 06/20/2023 19:00 Urobilinogen NORMAL mg/dL ()?? 06/20/2023 19:00 WBC's, Urine 7 /HPF (High)?? 06/20/2023 19:00 RBC's, Urine NONE SEEN /HPF ()?? 06/20/2023 19:00 Squamous Epith <1 /HPF ()?? 06/20/2023 19:00 Mucus SLIGHT /LPF ()?? 06/20/2023 19:00 Hold Urine Culture Testing available 48 hours from time of collection. ()?? 06/20/2023 19:00 ?? URINE OTHER Est Creatinine Clearance 63.18 mL/min ()?? 06/20/2023 17:33 ? _31 ??minutes spent on discharge * Orestes HERRING, Krysta: PERFORM, MODIFY Event Display: Patient Education/Instruction Authored Date: Inpatient Adult Discharge Instructions. [address] [id number] Name: CASH MCALLISTER : 1965?? Visit: 06/20/2023 18:47?? Current Date: 06/21/2023 11:26 ?? Account: [id number]?? Inpatient Adult Discharge Instructions We would like to thank you for allowing us to assist you with your healthcare needs. The following includes patient education materials and information regarding your injury/illness. Our entire staffstrives to provide an excellent experience for our patients and their families. PLEASE ENSURE YOU FOLLOW-UP PER THE INSTRUCTIONS BELOW! ?? YOUR OPINION IS IMPORTANT TO US! Please complete the survey you may receive by mail or email. Your feedback will be used to make improvements to the healthcare experiences of our patients and their families. Surveys are administered by [employer] ?? If further treatment with your primary care physician or another doctor is recommended, it is important for you to keep the appointment. Call your primary care physician or return to the Emergency Department immediately if your condition worsens, fails to improve, or new symptoms develop. If you need to find a doctor, you can call [facility] for a referral at [phone] or toll free at [phone] or log in to [email or web address].. ?? [facility], in keeping with [facility] guidance, no longer requires face masks for staff, patientsor visitors in most situations. Similiar to time spent indoors at other locations, there is the chance that you were exposed to repiratory viruses during your time with us (such as flu or COVID-19). If you develop symptoms concerning for a viral respiratory infection, please seek testing (and treatment if indicated) from your medical provider or home test kit. ?? You can view and manage your care through the patient portal or by using a health care diana of your choosing. [employer] is a website that allows you to securely view your medical information including your hospital discharge summary, office visit summaries, medications and follow-up visits. You can also request appointments, renew medications, and request access to your medical information using a health care diana of your choosing, or just ask a question. You can enroll at [email or web address] or register during your next office visit. You have been discharged from [facility], Patient Care Unit: W3??. If you have any questions regarding these instructions, including results of studies pending, afteryou leave, please call us and we will be happy to assist you 15/09. [facility] Your Care Team Attending Physician Ramya Davis MD?? Consulting Providers Ramya Davis MD?? Discharging Providers Ramya Davis MD Reason for Your Visit pyelo, bacteremia?? Your Diagnosis Urinary tract infection Bacteremia General medical Tests Performed Below is a partial list of the tests performed during your hospitalization. You may have had other tests and procedures not included in this list. Please discuss all test results with your provider. CBC w/ Differential Comprehensive Metabolic Panel Hold Blue Top Tube Hold Green Top Tube Lactate Level Urinalysis w/hold for Urine Culture XR Chest 2 Views Frontal and Lat Blood Culture?? Blood Culture #2?? Primary Care Provider Not on Staff, PCP?? Advance Directive Health Care Proxy on File No Patient refuses to discuss Discharge Vitals Temperature: 98.1 DegF Height: 152 cm Pulse Rate: 71 bpm Weight: 93.1 kg Respiratory Rate: 18 br/min Body Mass Index:??40.3 kg/m2??Critical Systolic Blood Pressure:??174 mm Hg??High Body surface area: 1.98 Diastolic Blood Pressure:??92 mm Hg??High ?? Oxygen Saturation:??90 %??Low ?? Studies Pending All studies ordered during this hospital stay have been completed unless listed below. Please discuss all pending results with your provider listed above in these instructions. ?? Blood Culture?? Blood Culture #2?? What to do next Instructions From Your Doctor Starting tomorrow, take levofloxacin once a day for 5 more days? You can use over the counter OraGel for pain ?? Orders??:Cardiac diet :Ambulate with assistance ??3 times a day ??unless otherwise specified Status: ??Full Resuscitation :good :Good? 06/21/23 10:46:00 EDT?? Prescriptions??, ??06/21/23 10:46:00 EDT?? Discharge Medications CASH MCALLISTER :1965 Visit Date:06/20/2023 Medications: Please continue your medications until treatment is completed or stopped by your provider. Medications not listed below should be discontinued. Discuss any questions related to medications with your provider. What How Much When Instructions Next Dose New Levofloxacin (levoFLOXacin 750 mg oral tablet) 750 Milligram Oral Every 24 hours Pickup at [facility]/pharmacy #[id number] 06/21 9 AM Unchanged Acetaminophen (Tylenol 8 Hour 650 mg oral tablet, extended release) 2 tab(s) Oral Every 8 hours As needed Unchanged Diclofenac Topical (diclofenac 1% topical gel) 2 gram 3 times a day As needed Unchanged Gabapentin 600 Milligram Oral 3 times a day 06/20??9 PM Unchanged Naproxen 500 Milligram Oral Daily As needed Unchanged Omeprazole 40 Milligram Oral Daily 06/20 PM Pharmacy Information [facility]/pharmacy #[id number]: [address] [place], [place] [id number] [phone] ?? What How Much When Comments Stop Taking Cefpodoxime (cefpodoxime 200 mg oral tablet) 1 tab(s) Oral Every 12 hours Duration: 10 Days Stop Taking Cefpodoxime (cefpodoxime 200 mg oral tablet) 1 tab(s) Oral Every 12 hours Duration: 10 Days Prescription Given During Visit Levofloxacin (levoFLOXacin 750 mg oral tablet) - 750 mg, By Mouth, Every 24 hours, # 5 tablet, 0 Refills, [facility]/pharmacy #[id number], [address] [place] [id number]?? Laboratory Results Below is a partial list of the most recent Laboratory test results done prior to this discharge. You may have had other tests and procedures not included in this list. Please discuss all test resultswith your provider. Est Creatinine Clearance - 63.18 mL/min (06/20/2023) CBC w/ Differential (06/20/2023) ???WBC - 11.8 k/mm3???RBC - 4.63 m/mm3???Hgb - 13.3 Gm/dL???Hct - 39.6 %???MCV - 85.5 femtoliters???MCH - 28.7 pg???MCHC - 33.6 g/dL???Platelet Count - 340 k/mm3???RDW-SD - 39.4 femtoliters???MPV - 10.5 femtoliters???Nucleated RBC (Automated) - 0.0 #/100 WBC'S???Abs. NRBC - 0.0 k/mm3???Abs. Neut - 7.1 k/mm3???Abs. Lymph - 3.8 k/mm3???Abs. [place] - 0.7 k/mm3???Abs. Eo - 0.1 k/mm3???Abs. Baso - 0.0 k/mm3???Neut % - 59.8 %???Lymph % - 32.2 %???[place] % - 6.0 %???Eos % - 1.1 %???Baso % - 0.3 %???Imm Gran - 0.6 %???Abs. Imm Gran - 0.1 k/mm3 Comprehensive Metabolic Panel (06/20/2023) ???Sodium - 141 mmol/L???Potassium - 4.2 mmol/L???Chloride - 102 mmol/L???Bicarbonate Level - 23 mmol/L???Anion Gap - 16???Glucose Level - 110 mg/dL???BUN - 13 mg/dL???Creatinine-Blood - 0.7 mg/dL???Estimated GFR Creatinine - 99 ML/MIN/1.73 M2???Calcium - 9.4 mg/dL???Protein, Total - 6.9 Gm/dL???Albumin - 4.1 Gm/dL???AG Ratio - 1.5???Alkaline Phosphatase - 112 units/L???AST (SGOT) - 11 units/L???ALT (SGPT) - 13 units/L? ?Bilirubin, Total - <0.2 mg/dL Hold Blue Top Tube (06/20/2023) ???Hold Blue Top - SPECIMEN DISCARDED AFTER 4 HOURS. Hold Green Top Tube (06/20/2023) ???Hold Green Top - SPECIMEN DISCARDED AFTER 1 WEEK Lactate Level (06/20/2023) ???Lactate - 1.8 mmol/L Urinalysis w/hold for Urine Culture (06/20/2023) ???Appear/Color, Urine - LIGHT YELLOW???Specific Kipling, Urine - 1.016???pH, Urine - 6.0???Albumin, Urine - TRACE???Glucose, Urine - NEGATIVE???Ketones, Urine - NEGATIVE???Bilirubin, Urine - NEGATIVE???Hemoglobin, Urine - NEGATIVE???Nitrite, Urine - NEGATIVE???Leukocyte, Urine - TRACE???Urobilinogen - NORMAL? ?WBC's, Urine - 7 /HPF? ?RBC's, Urine - NONE SEEN? ?Squamous Epith - <1 /HPF? ?Mucus- SLIGHT???Hold Urine Culture - Testing available 48 hours from time of collection. Allergies (NKA means No Known Allergies) fluconazole Problems Active Problems??(3) Persistent moderate somatic symptom disorder with predominant pain?? Pyelonephritis?? Severe obesity?? Education Materials Below is the list of Educational Leaflet Providered with your Discharge Instructions. [employer] Patient Education - Levofloxacin Oral Solution?? Valuables and Belongings I fully understand and agree that [facility] accepts no responsibility for all my personal property including clothing, toilet articles, radios, jewelry, dentures, hearing aids, rings, money, or any other property that is in my possession or is brought to me after admission. I understand certain valuables may be placed in a hospital safe for a short period of time. I understand that the hospital is not liable for loss or damage due to accident, fire, or other natural occurrence while said property is in the safe. I accept full responsibility for any personal property that I keep with me, and will not hold the hospital responsible in case of loss or disappearance. I acknowledge that i have been encouraged to send valuables and belongings home. ?? Review of Valuable and Belonging List: With patient Date for Pt to Sign Valuables/Belongings: 06/21/23 01:00:00 ?? Other Discharge Information ? Pulmonary Rehab Status?? Pulmonary Rehab Discharge Status?? Respiratory Rate: 18 br/min ? Common Emergency Awareness Tips IS IT A STROKE? Act FAST and Check for these signs: FACE Does the face look uneven? ARM Does one arm drift down? SPEECH Does their speech sound strange? TIME Call at any sign of stroke ?? Heart Attack Signs Chest discomfort: Most heart attacks involve discomfort in the center of the chest and lasts more than a few minutes, or goes away and comes back. It can feel like uncomfortable pressure, squeezing, fullness or pain. Discomfort in upper body: Symptoms can include pain or discomfort in one or both arms, back, neck, jaw or stomach. Shortness of breath: With or without discomfort. Other signs: Breaking out in a cold sweat, nausea, or lightheaded. Remember, MINUTES DO MATTER. If you experience any of these heart attack warning signs, call to get immediate medical attention! ?? Smoking can increase your chances of developing chronic health problems and can cause harmful effects to other family members in your house. If you smoke, you are strongly encouraged to quit. Please call [facility] at [phone] or [phone] ([phone]) or log in to [email or web address] for referrals to smoking cessation programs. ?? 793 Suicide & Crisis Lifeline is available 15/09 if you or someone you know needs to find a reason to keep living. By calling 557 you'll be connected to a skilled, trained counselor at a crisis center in your area. INPATIENT DISCHARGE INSTRUCTIONS SIGNATURE PAGE CASH MCALLISTER Location:[facility] Registration Date and Time:06/20/2023 18:47 EDT Primary Care Physician: Not on Staff, PCP Attending Physician: Ramya Davis MD, I ESVIN CASH, have received the above patient education materials/instructions and have verbalized understanding. If ambulance or transport services are being used I further acknowledge being given a choice of service. ?? If you need to contact me, please call me at this number: . Patient/Music Executive Name: Patient/Music Executive Signature: Relationship to Patient: Witness Name/Signature: Date: * Krysta Carlisle RN: PERFORM Event Display: Patient Education Leaflets Authored Date: [id number] Levofloxacin Oral Solution ?? [id number] Levofloxacin Oral Solution Uses For treating bacterial infection. ?? Instructions Drink the medicine. Keep the medicine at room temperature. Avoid heat and direct light. Drink extra water while on this medicine. Adults should try to drink 6-8 cups (48 to 64 oz.) of water every day. Do not take any antacid or vitamins with magnesium, calcium, aluminum, or iron for 2 hours before and 2 hours after taking this medicine. After using the medicine for the total number of days, throw away any leftover medicine. This medicine can make you sensitive to the sun. Use sunscreen or protective clothing when in sun. If you forget to take a dose on time, take it as soon as you remember. If it is almost time for thenext dose, do not take the missed dose. Return to your normal schedule. Do not take 2 doses at one time. Drug interactions can change how medicines work or increase risk for side effects. Tell your healthcare providers about all medicines taken. Include prescription and [id number] medicines, vitamins, and herbal medicines. Speak with your doctor or pharmacist before starting or stopping any medicine. Tell your doctor if symptoms do not get better or if they get worse. Keep using this medicine for the full number of days that it is prescribed. Do not stop the medicine even if you start to feel better. This medicine may affect your blood sugar levels. If you have diabetes, talk to your doctor before changing the dose of your diabetes medicine. Keep all appointments for medical exams and tests while on this medicine. ?? Cautions Tell your doctor and pharmacist if you ever had an allergic reaction to a medicine. Few patients may experience tendon problems. This is more common in patients older than 60. If you notice pain, swelling, or difficulty moving your joints, tell your doctor. This can happen even after stopping the medicine for a few months. Do not use the medication any more than instructed. Your ability to stay alert or to react quickly may be impaired by this medicine. Do not drive or operate machinery until you know how this medicine will affect you. Please check with your doctor before drinking alcohol while on this medicine. Speak with your health care provider before receiving any vaccinations. Please tell your doctor if you have moderate to severe diarrhea while on this medicine. Do not treat the diarrhea with iuir-crw-dpgrayy diarrhea medicine. Tell the doctor or pharmacist if you are , planning to be , or . Do not share this medicine with anyone who has not been prescribed this medicine. Some patients have serious side effects from this medicine. Ask your pharmacist to show you the information from the Food and Drug Administration (FDA) and discuss it with you. ?? Side Effects The following is a list of some common side effects from this medicine. Please speak with your doctor about what you should do if you experience these or other side effects. ??? agitated feeling or trouble sleeping ??? diarrhea ??? dizziness ??? headaches ??? nausea and vomiting ??? stomach upset or abdominal pain ??? yeast infection of mouth ??? vaginal itching or yeastinfection Call your doctor or get medical help right away if you notice any of these more serious side effects: ??? bleeding or bruising ??? chest pain ??? confusion ??? severe, watery or bloody diarrhea ??? fainting ??? fever or chills ??? hallucinations (unusual thoughts, seeing or hearing things that are not real) ??? numbness or tingling in hands and feet ??? severe or persistent headache ??? fast or irregular heart beats ??? pain in the joints ??? signs of liver damage (such as yellowing of eye or skin, dark urine, or unusual tiredness) ??? muscle trembling or weakness ??? pale or blue skin, lips orfingernails ??? seizures ??? shortness of breath ??? red, peeling or blistering skin ??? light colored stool ??? urinating less often ??? difficulty or discomfort urinating ??? blood in urine A few people may have an allergic reaction to this medicine. Symptoms can include difficulty breathing, skin rash, itching, swelling, or severe dizziness. If you notice any of these symptoms, seek medical help quickly. ?? Extra Please speak with your doctor, nurse, or pharmacist if you have any questions about this medicine. ?? [email or web address] IMPORTANT NOTE: This document tells you briefly how to take your medicine, but it does not tell youall there is to know about it. Your doctor or pharmacist may give you other documents about your medicine. Please talk to them if you have any questions. Always follow their advice. There is a more complete description of this medicine available in Latvian. Scan this code on your smartphone or tablet or use the web address below. You can also ask your pharmacist for a printout. If you have any questions, please ask your pharmacist. The display and use of this drug information is subject to Terms of Use. Copyright(c) 2023 [employer]. ?? [employer]. All rights reserved. This information is not intended as a substitute for professional medical care. Always follow your healthcare professional's instructions. ?? Patient Care team information Care Team Personnel Name: Not on Staff, PCP Position: S Physician (General Medicine) Member Role: PCP Care Team Related Persons Name: MCALLISTERLETICIA Address: [place] [address]
--- OUTSIDE RECORDS SUMMARY | 2023-11-19 10:07 | XMS_ITS | Continuity of Care Document ---
Author Organization [facility] Address [address] [place] [id number]- Care Team Providers Care Procurement Assistant Name Role Phone Yuli Vargas MD Primary Care Physician Encounter [facility] Date(s): 02/28/21 - 03/30/21 [facility] [address] [place] [id number]- Allergies, Adverse Reactions, Alerts No Known Allergies Medications diazepam 5 mg oral tablet See Instructions, 1 tab PO 1 hr. prior to procedure. May repeat x 1 on arrival to [facility] if needed., #2 tablet, Refills 0, Tot. [...] opioid drug. Start Date: 10/22/20 Status: Ordered Methadone = 36 mg, By [...] Date: 10/22/20 Status: Ordered Problem List Condition Effective Dates Status Health Status Inform ant Persistent moderate somatic symptom disorder with predominant pain(Confirmed) Active
--- OUTSIDE RECORDS SUMMARY | 2023-11-19 10:07 | XMS_ITS | Continuity of Care Document ---
Author Organization [facility] ter Address [address] [place] [id number]- Care Team Providers Care Office Professionals Name Role Phone Not on Staff, PCP Primary Care Physician Unavail able Encounter [facility] Date(s): 06/16/23 - 06/16/[address] [phone]- Discharge Disposition: A-D/C Home Attending Physician: Tirso Kwok MD Admitting Physician: Tirso Kwok MD Referring Physician: Not on Staff, Referring MD Allergies, Adverse Reactions, Alerts Substance Reaction Severity Status fluconazole 1 Active 1severe rash and blisters Medications cefpodoxime 200 mg oral tablet 1 tablet = 200 mg, By Mouth, Every 12 hours, for 10 days, # 20 tablet, 0 Refills, Acute 06/26/23 20:43:00 EDT, 06/16/23 20:43:00 EDT, Tablet, [facility]/pharmacy #[id number], Partial fill upon patient request if the prescription is for a schedule II opioid drug.,... Start Date: 06/16/23 Stop Date: 06/26/23 Status: Ordered cefpodoxime 200 mg oral tablet 1 tablet = 200 mg, By Mouth, Every 12 hours, for 10 days, # 20 tablet, 0 Refills, Acute 06/26/23 20:58:00 EDT, 06/16/23 20:58:00 EDT, Tablet, [id number], Partial fill upon patient request if the prescription is for a schedule II opioid drug.,... Start Date: 06/16/23 Stop Date: 06/26/23 Status: Ordered diazepam 5 mg oral tablet See Instructions, 1 tab PO 1 hr. prior to procedure. May repeat x 1 on arrival to [facility] if needed., #2 tablet, Refills [...] opioid drug. Start Date: 10/22/20 Status: Ordered FENTanyl Inj 50 mcg, Injection, IV Push Slowly, Once, STAT, 06/16/23 17:28:00 EDT, Stop date 06/16/23 17:28:00 EDT Start Date: 06/16/23 Stop Date: 06/16/23 Status: Completed Gabapentin = 600 mg, By Mouth, 3 [...] List Condition Confirmation Course Effective Dates Status Health St atus Informant Persistent moderate somatic symptom disorder with predominant pain Confirmed Active Results Radiology Reports * Exam Date Time Procedure Performing Provider Status 06/16/23 7:[address] Abd/Pelvis W/ IV Contrast Only Sapna Espinoza; Auth (Verified) Notes: (CT Abd/Pelvis W/ IV Contrast Only) Reason For Exam: R flank pain;Other: RESULT: CT Abd/Pelvis W/ IV Contrast Only CT Abd/Pelvis W/ IV Contrast Only Reason: Right flank pain and urinary frequency; TECHNIQUE: Spiral CT through the abdomen and pelvis with IV contrast formatted in 3 planes. 100 cc of Omnipaque 300 was administered intravenously. This study was performed without oral contrast. Weight-based protocol using automatic tube modulation was used to optimize exposure parameters. CTDIvol Body: 15.50 mGy, DLP Body: 829 mGy*cm. COMPARISON: MRI pelvis 05/09/2013 FINDINGS: Forest Scientist View Findings, Lines and Tubes: None. Visualized Chest: Lung bases are clear. No pleural effusion. The heart is normal in size. No pericardial effusion. Diaphragm: Normal. Liver: Normal. Gallbladder: Absent consistent with prior cholecystectomy. Bile ducts: No biliary ductal dilation. Spleen: Mild splenomegaly. Accessory site tissue is incidentally noted. No suspicious masses. Pancreas: Normal. Adrenal glands: Thickened left adrenal gland without any discrete nodules.r Kidneys and ureters: No hydronephrosis, stones, or suspicious masses. Simple appearing renal cyst of the left kidney, requiring no dedicated follow up. The right ureter is mildly dilated throughout its course, however no obstructing ureteric calculi. No visible masses compressing the right ureter. Bladder: Mildly distended without wall thickening. Reproductive organs: Fibroid uterus. Stomach, small bowel, and large bowel: Small type I hiatal hernia. The stomach, small bowel and large bowel are normal in caliber. No evidence of bowel obstruction. No abnormal bowel wall thickening or surrounding fat stranding to suggest acute inflammatory process of the bowel.. Appendix: Normal. Peritoneum and retroperitoneum: No ascites or pneumoperitoneum. No omental or mesenteric lesions. Lymph nodes: No enlarged lymph nodes. Blood vessels: Normal. No aneurysm. No evidence of venous thrombosis. Abdominal and pelvic wall: Surgical clips over the right groin, from prior hernia repair Bones: Degenerative changes without acute abnormality. Unfused spinous process of L5.. IMPRESSION: Mild thickened urothelial enhancement within the right ureter suggestive of urinary tract infection. I have personally reviewed the images and I agree with this report. WSN: [id number] Ordering Physician: Ramya Campo Dictated By: Apryl Mohamud MD Dictated Date/Time: 06/16/23 8:10 pm Reviewed By: Dar Jack MD Signed By: Dar Jack MD Signed Date/Time: 06/16/23 8:15 pm Transcribed By: ALLISON Transcribed Date/Time: 06/16/23 7:54 pm Vital Signs Most recent to oldest [Reference Range]: 1 2 3 Height 159 cm (06/16/23 7:03 PM) 159 cm (06/16/23 4:39 PM) Oxygen Saturation [94-100 %] 100 % (06/16/23 7:03 PM) 97 % (06/16/23 4:39 PM) 99 % (06/16/23 4:36 PM) Pulse Rate [55-90 bpm] 89 bpm (06/16/23 7:03 PM) 95 bpm *H* (06/16/23 4:39 PM) 110 bpm *H* (06/16/23 4:36 PM) Blood Pressure [90-138/55-84 mm Hg] 138/90mm Hg (06/16/23 7:03 PM) 155/84mm Hg *H* (06/16/23 4:39 PM) Respiratory Rate [16-30 br/min] 18 br/min (06/16/23 7:03 PM) 17 br/min (06/16/23 6:57 PM) 19 br/min (06/16/23 4:39 PM) Temperature [96.8-100.4 DegF] 99.0 DegF (06/16/23 7:03 PM) 98.1 DegF (06/16/23 4:39 PM) Mode of Delivery (Oxygen) Room air (06/16/23 7:03 PM) Room air (06/16/23 4:39 PM) Room air (06/16/23 4:36 PM) Blood pressure sites Arm, left (06/16/23 7:03 PM) Arm, left (06/16/23 4:39 PM) Temperature Route Oral (06/16/23 7:03 PM) Oral (06/16/23 4:39 PM) Dry Weight 92.4 kg (06/16/23 7:03 PM) 92.4 kg (06/16/23 4:39 PM) Dry Weight Obtained Via 98.1 (06/16/23 4:39 PM) Note * Vicky Hoyos: PERFORM Event Display: Patient Education Leaflets Authored Date: [id number] Kidney Infection (Adult Female) ?? [id number] Kidney Infection (Adult Female) An infection in 1 or both kidneys is called pyelonephritis. It usually happens when bacteria get into the kidney. Rarely it is caused when other germs, such as viruses, fungi, or other disease-causing organisms get into the kidney. The bacteria or other disease-causing organisms can enter the kidneys from the bladder or blood traveling from other parts of the body. A kidney infection can become serious. It can cause severe illness, scarring of the kidneys, or kidney failure if not treated correctly. Common causes for this problem include: ??? Not keeping the genital area clean and dry, which promotes the growth of bacteria ??? Wiping back to front. This drags bacteria from the rectum toward the urinary opening (urethra). ??? Wearing tight pants or underwear. This lets moisture build up in the genital area, which helps bacteria grow.??? Holding pee (urine) in for long periods of time ??? Dehydration ??? Urinary tract infections ??? Blockages of pee draining from the kidney, such as a kidney stone Kidney infections can cause symptoms similar to a bladder infection. Symptoms include: ??? Pain or burning feeling when peeing ??? Having to pee more often than normal ??? Blood in the pee (pink or red) ??? Belly (abdominal) pain or discomfort, usually in the lower belly ??? Pain in the side or back ??? Pain above the pubic bone ??? Fever or chills ??? Vomiting ??? Loss of appetite Treatment is oral antibiotics. More severe cases are treated with IM (intramuscular) or IV (intravenous) antibiotics. These are started right away and may be changed once urine culture results show the infecting organisms. Treatment helps prevent a more serious kidney infection. Symptoms of kidney i nfections can vary based on your age. Medicines Medicines can help in the treatment of a bladder infection: ??? Take antibiotics exactly as prescribed and until they are used up, even if you feel better. It's important to finish them to make sure the infection is gone. ??? Unless another medicine was prescribed, you can use atdl-dhs-lemaaja medicines for pain, fever, or discomfort. If you have chronic liver of kidney disease, talk with your [facility] provider before using these medicines. Also talk with your provider if you've ever had a stomach ulcer or digestive bleeding. Or if you are taking blood thinners. ?? Home care Here are some general care guidelines: ??? Stay home from work or school. Rest in bed until your fever breaks and you are feeling better, or as advised by your healthcare provider. ??? Drink lots of fluid unless you must restrict fluids for other medical reasons. This will force the medicine into your urinary system and flush the bacteria out of your body. Ask your provider how much you should drink. ??? Don't have sex until you have f inished all of your medicine and your symptoms are gone. ??? Don't have??caffeine, alcohol, or spicy foods. These foods may irritate the kidneys and bladder. ??? Don't take bubble baths. Sensitivity to the chemicals in bubble baths can irritate the urethra. ??? Make sure you wipe from front to backafter using the toilet. ??? Wear loose clothes and cotton underwear. Prevention These self-care steps can help prevent future infections: ??? Drink plenty of fluids to prevent dehydration and flush out the bladder. Do this unless you must restrict fluids for other health reasons, or your healthcare provider told you not to. ??? Make sure you wipe from front to back after usingthe toilet. ??? Pee more often. Don't try to hold pee in for a long time. ??? Don't wear tight-fitti ng pants and underwear. ??? Improve your diet to prevent constipation. Eat more fruits, vegetables,and fiber. Eat less junk and fatty foods. Constipation can make a urinary tract infection more likely. Talk with your healthcare provider if you have trouble with bowel movements. ??? Pee right aftersex to flush out the bladder. ?? Follow-up care Follow up with your healthcare provider, or as advised. Additional testing may be needed to make sure the infection has cleared. Close follow-up and further testing is very important to find the cause and to prevent future infections. If a urine culture was done, you will be contacted if your treatment needs to be changed. If directed, you may call to find out the results. If you had an X-ray, CT scan, or other diagnostic test, you will be told of any new findings that may affect your care. Call 911 Call 911 if any of the following occur: ??? Trouble breathing ??? Fainting or loss of consciousness??? Fast or very slow heart rate ??? Weakness, dizziness, or fainting ??? Trouble waking up or confusion ?? When to get medical care Call your healthcare provider right away if any of these occur: ??? Fever 100.4??F (38??C) or higher, or as advised by your provider ??? Not feeling better or symptoms get worse 1 to 2 days after starting antibiotics ??? Any symptom that lasts after 3 days of treatment ??? More pain in the stomach,back, side, or groin area ??? Repeated vomiting ??? Not able to take prescribed medicine due to nausea or another reason ??? Bloody, dark-colored, or bad- smelling pee ??? Trouble peeing or peeing less than normal ??? No pee for 8 hours, no tears when crying, confusion, sunken eyes, or dry mouth ?? Last Reviewed Date: 2021 ?? [id number] [employer]. All rights reserved. This information is not intended as a substitute for professional medical care. Always follow your healthcare professional's instructions. ?? Patient Care team information Care Team Personnel Name: Not on Staff, PCP Position: [facility] Physician (General Medicine) Member Role: PCP Care Team Related Persons Name: ESVIN LETICIA Address: [address] [place] [address]
--- OUTSIDE RECORDS SUMMARY | 2023-11-19 10:08 | XMS_ITS | Continuity of Care Document ---
Author Organization [facility] Address [address] [place] [id number]- Care Team Providers Care Irs Agent Name Role Phone Yuli Vargas MD Primary Care Physician Encounter [facility] Date(s): 05/09/21 - 06/08/21 [facility] [address] [place] [id number]- Attending Physician: Chrissy Rodas Admitting Physician: AdmtrChrissy Referring Physician: Admtr ArSapphire Allergies, Adverse Reactions, Alerts Substance Reaction Severity Status fluconazole 1 Active 1severe rash and blisters Medications diazepam 5 mg oral tablet See Instructions, 1 tab PO 1 hr. prior to procedure. May repeat x 1 on arrival to [facility] if needed., #2 tablet, Refills 0, [...]
--- OUTSIDE RECORDS SUMMARY | 2023-11-19 10:08 | XMS_ITS | Continuity of Care Document ---
Author Organization [facility] Address [address] [place] [phone]- Care Team Providers Care Medical Records Director Name Role Phone Yuli Vargas MD Primary Care Physician [place] [facility] [place]20 [place] 01/19/21 [facility] [address] [place] [id number]- Allergies, Adverse Reactions, Alerts Substance Reaction Severity Status NKA Active Medications diazepam 5 mg oral tablet See Instructions, 1 tab PO 1 hr. prior to procedure. May repeat x [address] [facility] if needed., #2 tablet, Refills 0, Tot. Refills 0, Maintenance, 01/18/21 16:00:00 EST, Instructions Replace Required Details, [facility] Start Date: 01/18/21 Status: Ordered diclofenac 1% topical gel = [...] Start Date: 10/22/20 Status: Ordered Methadone = 38 mg, By Mouth, Daily, 0 Refills, Maintenance, [...]
--- OUTSIDE RECORDS SUMMARY | 2023-11-19 10:08 | XMS_ITS | Continuity of Care Document ---
Author Organization [facility] Address [address] [place] [address]- Care Team Providers Care Book Cleaner Name Role Phone Yuli Vargas MD Primary Care Physician [phone] [place] [facility] [place] 04/03/21 [facility] [address] [place] [phone]- Attending Physician: Rosalinda Hinson DO Admitting Physician: Rosalinda Hinson DO Allergies, Adverse Reactions, Alerts No Known Allergies Medications diazepam 5 mg oral tablet See Instructions, 1 tab PO 1 hr. prior to procedure. May repeat x 1 on arrival to [facility] if needed., #2 tablet, Refills 0, [...]
--- OUTSIDE RECORDS SUMMARY | 2023-11-19 10:08 | XMS_ITS | Continuity of Care Document ---
Author Organization [facility] Address [address] [place] [address]- Care Team Providers Care Environmental Services Manager Name Role Phone Sam MALONE, Yuli Brewer Primary Care Physician [phone] [facility] [place] [facility] [id number] Date(s): 03/04/21 - 06/08/21 [facility] [address] [place] [address]- Attending Physician: Naila MALONE, Macy Admitting Physician: Macy Yoo MD Allergies, Adverse Reactions, Alerts Substance Reaction Severity Status fluconazole 1 Active 1severe rash and blisters Medications diazepam 5 mg oral tablet See Instructions, 1 tab PO 1 hr. prior to procedure. May repeat x 1 on arrival to [facility] if needed., #2 tablet, Refills 0, Tot. [...]
--- NOTE | 2023-11-19 10:11 | A.OFFVIS_ITS ---
Intake Visit Reasons: R TKA w/NE 11/24/23 Intake Note: Farrah a 58 year old female who presents today for a preoperative RT TKA w/NE 11/24/23. Pain management agreement reviewed and signed. Allergies No Known Allergies Allergy (Verified 11/19/23 10:14) Medication List - Last Reconciled 11/19/23 by Jasmine Arguello PA-C acetaminophen ER 650 mg PO Q8H PRN albuterol sulfate 90 mcg/actuation (Ventolin HFA) 2 puffs inhalation Q4H PRN gabapentin 600 mg PO BID ibuprofen 600 mg PO Q6H PRN omeprazole 40 mg PO QAM walker Folding Front wheeled walker HPI Comments Details: Ms Glover presents to the office today for preop visit. She is scheduled for right total knee arthroplasty with Dr. Richmond. She continues to have ongoing pain and difficulty with ambulation in the right knee, which is affecting her quality of life; therefore, she has elected to move forward with surgery. PENDING SALE TO [facility] Medical History (Updated 11/19/23 @ 10:52 by Jasmine Arguello PA-C) Opiate dependence E coli bacteremia Smokers' cough White coat syndrome with hypertension GERD (gastroesophageal reflux disease) Bilateral primary osteoarthritis of knee Eczema Surgical History S/P placement of nerve stimulator History of incision and drainage Hx of varicose vein ligation Hx of tubal ligation History of surgery Hx of arthroscopic knee surgery Hx of hernia repair History of cholecystectomy Social History Are you a primary career information specialist to a significant other at home: No Do you presently have visiting nurse or other home services: No Alcohol intake: never Patient Tobacco Use Status: Current everyday Tobacco user Tobacco use type: Cigarette Cigarettes Per Day: 10 Years Smoked: 45 Current occupational status: disabled Current occupation: rt hand Review of Systems Const All systems reviewed & are unremarkable except as noted in HPI and below Physical Exam Const General: cooperative and no acute distress Orientation/consciousness: patient oriented x3 HEENT Head: Yes normal to inspection, Yes normocephalic and Yes atraumatic Eyes General: appearance normal, both eyes and all related structures Neck Neck: Yes normal visual inspection and Yes no lymphadenopathy Resp Effort & Inspection: normal respiratory effort and able to speak in complete sentences Cardio Rate: regular rate Peripheral pulses: Peripheral pulses 2+ throughout GI Inspection: Yes normal to inspection Palpation (GI): Soft to palpation Skin General skin exam: no rashes or lesions noted Neuro General: patient oriented x3 Extrem Other: Bilateral knee: Skin intact, no erythema or joint effusion. Windswept deformity. Tenderness along the medial and lateral joint line. Full ROM with crepitus. Negative Andrea?s. No ligamentous laxity. NVI. Psych Appearance: grossly normal Mental Status: mental status grossly normal Results Reviewed Results Reviewed: xrays of right knee obtained today for pre op planning show severe degenerative joint disease with varus deformity Assessment & Plan Assessment & Plan (1) Osteoarthritis of right knee: Code(s): M17.11 - Unilateral primary osteoarthritis, right knee Category: Medical Qualifiers: Osteoarthritis type: primary Qualified Code(s): M17.11 - Unilateral primary osteoarthritis, right knee Plan I discussed in detail the procedure and what to expect pre and post operatively. We discussed the risks, benefits and alternatives to the surgery as well as the rehabilitation course. The risks; which include, but are not limited to infection, bleeding, nerve injury, ongoing pain, swelling, and stiffness, perioperative risk of injury to bones and soft tissues, and blood clots. I?ve answered all questions and with their understanding they have consented to move forward with Right total knee arthroplasty with Dr. Richmond I did explain we may proceed with Lovenox post op given her chronic history of tobacco use. Orders: Orders XR knee LT 1V Today M25.562 - Pain in left knee PT Evaluation and Treatment Today Z96.651 - Presence of right artificial knee joint XR knee RT 3V Today M17.11 - Unilateral primary osteoarthritis, right knee Patient Instructions: Scribed for Jasmine Arguello PA-C, by Vernon Villareal medical education specialist, on 11/19/2023 at 9:30 AM EST.? I, Jasmine Arguello PA-C, have personally reviewed and agree with the information entered by the scribe. Coding Level of Care Code Est Pt Level 3 (88335) Complex EM visit Add On G2211 Diagnoses Primary osteoarthritis of right knee M17.11 Osteoarthritis type: primary
== END 2023-11-19 10:31 | disposition home or self-care (01) ==
LOC: HO.HOS 10:06
PROVIDERS: PCP Internal Medicine; Visit Provider Physician Assistant
DX: M17.11 Unilateral primary osteoarthritis, right knee (principal)
CPT/HCPCS: 99024

== ENCOUNTER 2023-11-24 06:04 | Day surgery (SDC) | payer OTHER, SELFPAY ==
[2023-11-18 12:25] VITALS: BP 168/80; PULSE 73; RESP 20; O2SAT 96; BMI 37.0
--- NOTE | 2023-11-18 12:40 | HO.ANESPROP2 ---
Documented by User: Caitlyn Aviles NP 11/20/23 14:09 HPI - Anesthesia Eval Consult details Narrative: 58yo F for Right Knee Replacement Total, 11/24/23 Medically optimized No recent illness No CP/SOB with very minimal activity Smoker: >40 years, 1/2 or more ppd, chronic cough. Newly rx'd inhaler GERD: ppi controls Hx OUD - off methadone since 2021 PMFSH Active Problems Active Problems: All Active Problems Osteoarthritis of right knee (Acute) Left knee pain (Acute) Right knee pain (Acute) Bilateral primary osteoarthritis of knee (Acute) Past Medical History Medical History Opiate dependence E coli bacteremia Smokers' cough White coat syndrome with hypertension GERD (gastroesophageal reflux disease) Bilateral primary osteoarthritis of knee Eczema Family History Family history of problems with anesthesia: No Surgical History Surgical History S/P placement of nerve stimulator History of incision and drainage Hx of varicose vein ligation Hx of tubal ligation History of surgery Hx of arthroscopic knee surgery Hx of hernia repair History of cholecystectomy History of Problems with Anesthesia: No Social History Social History Are you a primary residential care facility manager to a significant other at home: No Do you presently have visiting nurse or other home services: No Alcohol intake: never Patient Tobacco Use Status: Current everyday Tobacco user Tobacco use type: Cigarette Cigarettes Per Day: 10 Years Smoked: 45 Smoked in Last 30 Days: Yes Patient Interested in Nicotine Replacement: Yes Use of substances other than those prescribed or required for medical reasons: No Have you been hit, kicked, punched, or otherwise hurt by someone within the past year? If so, by whom?: No Spiritual Healthcare Practices: none Orthodox Healthcare Practices: none Cultural Healthcare Practices: none Are you DNR?: No Advance Directives Information Provided: Yes (as above noted-brochure given) Advance Directives on File: No Recently lost weight without trying: No Eating poorly because of decreased appetite: No Nutrition Risks: No Nutritional Risk FDLMP: n/a Poor oral hygiene: No (has 4 teeth only-lower front) Current occupational status: disabled Current occupation: rt hand Meds Allergies Allergy/AdvReac Type Severity Reaction Status Date / Time No Known Allergies Allergy Verified 11/19/23 10:14 Home Medications ?Medication ?Instructions ?Recorded ?Confirmed ?Last Taken ?Type omeprazole 40 mg capsule,delayed 40 mg PO QAM 01/03/22 11/19/23 11/23/23 History release albuterol sulfate 90 mcg/actuation 2 puff inhalation Q4H PRN wheezing 11/17/23 11/19/23 11/23/23 History aerosol inhaler (Ventolin HFA) gabapentin 600 mg tablet 600 mg PO BID 11/17/23 11/19/23 11/23/23 History Exam Height,Weight and Vital Signs: Height 5 ft 1 in Weight 88.904 kg Last Vital Signs Pulse 73 11/18/23 12:25 Resp 20 11/18/23 12:25 BP 168/80 H 11/18/23 12:25 Pulse Ox 96 11/18/23 12:25 O2 Del Method Room Air 11/18/23 12:25 Pertinent Lab Results Pertinent Lab Results: CBC, BMP, A1C from outside facility WNL Narrative Narrative: EKG NSR, NO acute ST-T changes CXR No acute pulmo process Airway Mallampati Class: II TM Dist: >3cm Neck ROM: Full Loose/Missing/Broken Teeth: Yes (Four front lower teeth remain only, no loose or broken) Heart: RRR Lungs: CTAB Assessment and Plan Assessment Anesthesia Assessment: Anesthesia Plan Discussed, Smoking Cess. Discussed and PAT Visit Final Anesthetic Review Family History of Problems with Anesthesia: No History of Problems with Anesthesia: No Documented by User: Suyapa Dumont MD 11/24/23 08:15 [facility] Past Medical History Medical History Opiate dependence E coli bacteremia Smokers' cough White coat syndrome with hypertension GERD (gastroesophageal reflux disease) Bilateral primary osteoarthritis of knee Eczema Surgical History Surgical History S/P placement of nerve stimulator History of incision and drainage Hx of varicose vein ligation Hx of tubal ligation History of surgery Hx of arthroscopic knee surgery Hx of hernia repair History of cholecystectomy Social History Social History Are you a primary residential care facility manager to a significant other at home: No Do you presently have visiting nurse or other home services: No Alcohol intake: never Patient Tobacco Use Status: Current everyday Tobacco user Tobacco use type: Cigarette Cigarettes Per Day: 10 Years Smoked: 45 Smoked in Last 30 Days: Yes Patient Interested in Nicotine Replacement: Yes Use of substances other than those prescribed or required for medical reasons: No Have you been hit, kicked, punched, or otherwise hurt by someone within the past year? If so, by whom?: No Spiritual Healthcare Practices: none Orthodox Healthcare Practices: none Cultural Healthcare Practices: none Are you DNR?: No Advance Directives Information Provided: Yes (as above noted-brochure given) Advance Directives on File: No Recently lost weight without trying: No Eating poorly because of decreased appetite: No Nutrition Risks: No Nutritional Risk FDLMP: n/a Poor oral hygiene: No (has 4 teeth only-lower front) Current occupational status: disabled Current occupation: rt hand Meds Allergies Allergy/AdvReac Type Severity Reaction Status Date / Time No Known Allergies Allergy Verified 11/19/23 10:14 Home Medications ?Medication ?Instructions ?Recorded ?Confirmed ?Last Taken ?Type omeprazole 40 mg capsule,delayed 40 mg PO QAM 01/03/22 11/19/23 11/23/23 History release albuterol sulfate 90 mcg/actuation 2 puff inhalation Q4H PRN wheezing 11/17/23 11/19/23 11/23/23 History aerosol inhaler (Ventolin HFA) gabapentin 600 mg tablet 600 mg PO BID 11/17/23 11/19/23 11/23/23 History Assessment and Plan Final Anesthetic Review NPO: Yes ASA Class: III Final Preanesthetic Review: No Changes in Pt Med Stat, Meds/Allgs Chart Reviewed, Consent Obtained/Reviewed and Anes Risks/Benef Reviewed Patient Risk: Intermediate Procedure Risk: Intermediate Anesthetic Plan Anesthetic Plan: Spinal Disposition: Standard PACU
[2023-11-18 15:45] LABS: MRSA Nasal PCR NEGATIVE (Negative); SA Nasal PCR NEGATIVE (Negative)
[2023-11-24] VITALS (15 sets, daily range): BP systolic 145–191; BP diastolic 81–102; PULSE 62–76; RESP 16–20; TEMP 36.3–36.7; O2SAT 94–98; BMI 37.5
--- NOTE | ~2023-11-24 | XR_ITS ---
EXAMINATION: POSTOP RIGHT KNEE CLINICAL INFORMATION: Postop right knee COMPARISON: Right knee 11/19/2023 TECHNIQUE: 2 views right knee FINDINGS: A total knee prosthesis has been placed. Midline anterior cyrus are present. Gas is seen in the soft tissues consistent with the immediate postop state. Prosthesis appears in good position. XR/XR knee RT 2V IMPRESSION: Appropriate position of right knee prosthesis. Electronically signed by: Elijah Chaudhry MD 11/24/2023 11:02 AM EDT
[2023-11-24 06:53] LABS: Hematocrit 43.5 % (37.0-47.0); Hemoglobin 14.6 g/dl (12.0-16.0)
[2023-11-24] MEDS: Lactated Ringers 1,000 ML 100 ML IVCONT ×3 (07:02→20:12)
--- NOTE | 2023-11-24 07:23 | MHC.SHP ---
Pre-Procedural Eval Section A - 24 Hr Update-Section A only Date of Service: 11/24/23 The patient is an INPATIENT: No Changes since office visit: No Cold of Flu in the past 2 weeks, No New Medical Problems, No Changes in Medication and No Patient answered all questions The patient has been examined within 24 hours of the surgical procedure. The History & Physical has been completed within 30 days and I have reviewed it.: Yes Section B - Complete if H&P > 30 days Chief Complaint: RT TKA Allergies: Allergies Allergy/AdvReac Type Severity Reaction Status Date / Time No Known Allergies Allergy Verified 11/19/23 10:14 Plan I have reviewed the history and physical and performed a pertinent physical examination on my patient. No changes have occurred unless specified. Time Spent With Patient Time: Total time managing care of this patient today ____ minutes.
--- NOTE | 2023-11-24 09:19 | P.BOP_ITS ---
Brief Operative Note Date of Service: 11/24/23 Pre-op diagnosis: Right knee OA Post-op diagnosis: same Procedure: Right TKA Implants: Joelle Triathlon cemented 3/4tibia with 50mm stem/19TS/27s Surgeon: Corky Richmond MD Anesthesia: GLMA, regional and spinal Was an Winding Machine Operator used for this Procedure?: No Winding Machine Operator: Jasmine Arguello Estimated blood loss (mL): 25 Tourniquet time (min): 59 IV fluids (mL): 1,000 Pathology: other Condition: stable Disposition: PACU Assessment and Plan (No Qualifiers) Assessment and Plan (1) Status post right knee replacement: Status: Acute Plan: LEVEL 2 ANTICOAGULATION- LOVENOX OR ELIQUIS
--- NOTE | 2023-11-24 09:28 | W.PM.OPN ---
Operative Note Operative Note Date of Service: 11/24/23 Narrative: Date of Service: 11/24/23 Pre-op diagnosis: Right knee OA Post-op diagnosis: same Procedure: Right TKA Implants: [place] [employer] cemented 3/4tibia with 50mm stem/19TS/27s Surgeon: Corky Richmond MD Anesthesia: GLMA, regional and spinal Was an Juvenile Justice Officer used for this Procedure?: No Juvenile Justice Officer: Jasmine Arguello Estimated blood loss (mL): 25 Tourniquet time (min): 59 IV fluids (mL): 1,000 Pathology: other Condition: stable Disposition: PACU Procedure in detail: The patient was brought to the operating room and prepped and draped in standard sterile fashion. A time-out was called to identify proper site proper procedure proper surgeon and IV antibiotics were administered. 1 g of IV tranexemic acid was administered. I began by making a midline incision to the retinaculum and performed a medial parapatellar arthrotomy. The patella was translated laterally and the knee was flexed up. There was varus pattern severe tricompartmental OA. I performed a small medial peel and resected the infrapatellar fat pad. Kenedy's line was then used to drill my intramedullary femoral guide and my distal femur cut of 10 mm was made in 5 degrees of valgus while protecting the soft tissues. I then measured a # 3 femur and placed my cutting guide in 3 deg of ER and made my anterior posterior and chamfer cuts protecting the soft tissues at all times. I then made my box but removing the PCL. Once I was satisfied with my cuts I turned my attention to the tibia. I removed the meniscus medially and laterally and , using an external cutting guide, in line with the tibial crest and the third ray, I made my distal tibial cut in 0 deg slope of while protecting the posterior soft tissues at all times. THis was a large lateral cut. An extension block was used to confirm appropriate amount of bony resection. I then sized a #4 tibia and once I was satisfied that there was complete tibial coverage I placed my trial and with the trial femur in place took the knee through range of motion. I was satisfied with the extension and flexion as well as the balance at 0, 30 and 90 degrees. I then turned my attention to the patella where I removed 1 cm from the undersurface of the patella and then trialed a 27s patellar button. Again the knee was taken through range of motion I was satisfied with the tracking. I then prepared the tibia with a drill and punch. A femoral bone plug was placed and the knee was irrigated copiously. I then cemented the patella, tibia and femur in standard fashion. Axial compression adn a clamp were used while the cement dried. Once the cement was dry and hard all excess cement was removed and I trialed different inserts until I selected a #19TS insert. The final insert was placed and local TXA was administered. The knee was then closed with a running Quill suture, a 3 0 Vicryl and cyrus on the skin. Patient was then placed in sterile dressing and brought to recovery room in stable condition there were no known complications.
--- NOTE | 2023-11-24 10:12 | PHA.MEDREC ---
Addendum entered by Dori Thornton RPh 11/24/23 10:13: Reviewed by [facility] Original Note: Pharmacy Consult ? Medication Reconciliation Pharmacy has completed the medication reconciliation. Reviewed med rec done by nursing.
--- NOTE | 2023-11-24 10:45 | PM.DS ---
DS: Providers Provider Date of Service: 11/25/23 Primary care physician: Unknown Physician DS: Diagnosis Discharge Diagnosis (1) Status post right knee replacement: Status: Acute DS: Summary Hospital Course Hospital Course: The patient underwent a successful right total knee arthroplasty, they were transferred to PACU and then to the floor to recover. During their stay, their vitals were stable, afebrile at 97.3. Labs were unremarkable, H/H 14.6/43.5. POD 1 they were started on Lovenox for DVT ppx, they also received Physical Therapy services twice a day. Prior to discharge, their dressing was clean dry and intact, and the plan was to be discharged home with VNA services. Time Attestation Discharge Coordination Time (in mins): 30 Quality: Safe Use of Opioids Does Pt have an Active Cancer Diagnosis on the Problem List?: No Quality: Stroke Does the patient have a stroke diagnosis?: No Physical Exam Vital Signs: Vital Signs: Last Vital Signs Temp 97.8 F 11/24/23 10:18 Pulse 69 11/24/23 10:33 Resp 16 11/24/23 10:33 BP 179/96 H 11/24/23 10:33 Pulse Ox 96 11/24/23 10:33 O2 Del Method Nasal Cannula wit h Capnography 11/24/23 10:33 O2 Flow Rate 2 11/24/23 10:33 BMI result Body Mass Index 37.0 Const: General: cooperative, healthy appearing and no acute distress Resp: Effort & Inspection: normal respiratory effort and able to speak in complete sentences Cardio: Rate: regular rate Peripheral pulses: Peripheral pulses 2+ throughout GI: Palpation (GI): Soft to palpation Skin: Lesions: no lesions Rashes: no rashes Extrem: Other: right knee dressing is c/d/i. Able to dorsi/plantar flex. Calf is supple and nontender. Sensation intact. Pedal pulse intact. DS: Data Data Completed and Pending Pending studies at discharge: Pending at discharge 11/24/23 08:57 Surgical [PTH] Routine Labs on day of discharge: Laboratory Results - last 24 hr 11/18/23 11/24/23 13:30 06:45 Hgb 14.6 Hct 43.5 Blood Type O Positive Antibody Screen NEGATIVE Discharge Plan Discharge Patient Disposition: Home, Self-Care Referrals: Jasmine Arguello PA-C [Physician Yard Assistant] - 10/17/24 9:30 am Discharge Medications: New celecoxib 200 mg Capsule 200 mg PO BID 30 Days Qty: 60 0RF acetaminophen 325 mg Tablet 650 mg PO Q6H PRN (Reason: Pain, Mild (Pain Scale 1-3), fever or headache) 30 Days Qty: 240 0RF enoxaparin 40 mg/0.4 mL Syringe 40 mg subcut Q24H 42 Days Qty: 16.8 0RF oxycodone 10 mg tablet 10 mg PO Q4H PRN (Reason: Pain, Moderate(Pain Scale 4-6)) 7 Days Qty: 42 0RF Rx Instructions: Partial Fill upon patient request. docusate sodium 100 mg Capsule 100 mg PO BID 30 Days Qty: 60 0RF Continued (DME) walker Misc See Rx Instructions .MEDSUPPLY Qty: 1 0RF Rx Instructions: Folding Front wheeled walker albuterol sulfate [Ventolin HFA] 90 mcg/actuation HFA aerosol inhaler 2 puff inhalation Q4H PRN (Reason: wheezing) gabapentin 600 mg tablet 600 mg PO BID omeprazole 40 mg capsule,delayed release(DR/EC) 40 mg PO DAILY@0630 Discontinued ibuprofen 600 mg tablet 600 mg PO Q6H PRN (Reason: pain) Qty: 90 3RF acetaminophen 650 mg tablet extended release 650 mg PO Q8H PRN (Reason: pain) Qty: 60 1RF Discharge Orders: Discharge Order (Routine); Ordered 11/25/23 Ordered By: Idalia Hyde Diet: Advance to usual diet Activity on Discharge: Use cane or walker Activity Restrictions/Additional Instructions: Physical Therapy for ROM 0-120, quad strength, gait training. Use walker for ambulation Limit stair climbing, No shower, No tub bath, No driving Continue anticoagulant x 6 weeks Keep Aquacel dressing clean, dry and intact. Follow up with orthopedics in 2 weeks Print Language: Indonesian
--- NOTE | 2023-11-24 10:46 | P.F2F_ITS ---
Service Date Service Date: 11/24/23 Encounter Date of encounter: 11/25/23 Reasons for Services Signs and symptoms assessed: s/p RTKA Pt. is considered homebound due to recent surgery. Unable to drive, poor balance, poor gait mechanics. Reason for physical therapy: home safety and mobility, therapeutic exercises, restore joint function, gait/transfer training and ADL training Homebound: Leaving the home is medically contraindicated at this time without the asist of a device and/or another person due th the listed conditions above and below. Reason homebound: unsteady gait / fall risk, leg weakness, pain with ambulation, pain with transfers, poor balance / fall risk and unable to drive Certification: Based on the above findings, I certify that this patient is confined to the home and needs intermittent senior care care, physical therapy and/or speech th erapy, or continues to need occupational therapy. The patient is under my care, and I have initiated the establishment of the plan of care. The patient will be followed by a physician who will periodically review the plan of care. Time Spent With Patient Time: Total time managing care of this patient today ____ minutes.
[2023-11-24 13:22] LABS: Estimated Glomerular Filt Rate > 60
[2023-11-24] MEDS: oxyCODONE HCl Immed Release 5 MG TABLET PO (13:34)
[2023-11-24] MEDS: ceFAZolin Sodium/Dextrose,Iso 2 GM/50 ML PIGGYBACK IV (13:34)
[2023-11-24] MEDS: Acetaminophen 325 MG TABLET 650 MG PO (13:34)
[2023-11-24] MEDS: Nicotine 14 MG PATCH.TD24 TRANSDERMA (15:06)
[2023-11-24] MEDS: HYDROmorphone HCl 0.5 MG/0.5 ML SYRINGE 0.25 MG IVPUSH (15:07)
[2023-11-24] MEDS: oxyCODONE HCl Immed Release 5 MG TABLET 10 MG PO ×2 (17:29→21:29)
[2023-11-24] MEDS: Acetaminophen 1,000 MG/100 ML PIGGYBACK 400 MG IV (17:30)
[2023-11-24] MEDS: HYDROmorphone HCl 0.5 MG/0.5 ML SYRINGE IVPUSH (17:51)
[2023-11-24] MEDS: oxyCODONE HCl ER 10 MG TAB.ER.12H PO (20:05)
[2023-11-24] MEDS: Celecoxib 200 MG CAPSULE PO (20:06)
[2023-11-24] MEDS: Gabapentin 600 MG TABLET PO (20:07)
[2023-11-24] MEDS: Melatonin 3 MG TABLET 6 MG PO (20:08)
[2023-11-24] MEDS: Docusate Sodium 100 MG CAPSULE PO (20:10)
[2023-11-24] MEDS: 0.9 % Sodium Chloride Flush 3 ML SYRINGE IVFLUSH (20:15)
--- NOTE | 2023-11-24 21:59 | P.CONHOSP_ITS ---
History of Present Illness Data of Consult Service Date: 11/24/23 Requesting physician: Curt Green Primary Care Provider: Unknown Physician HPI Reason for consult: Elevated BP Farrah Glover very pleasant 58 years old woman with no significant past medical history underwent orthopedic surgery today (right knee replacement) and was found to have elevated blood pressure. Patient complained of some mild headache and knee pain. Denies other symptoms such as acute visual disturbances, nausea, vomiting, chest pain, shortness on breath, palpitations or cough. She denied any acute gastrointestinal or symptoms. She stated that her blood pressure is normal at home but increases when she visited her primary care physician. She is a tobacco smoker, smoked around 10 cigarettes per day. Denied illicit drug use or alcohol abuse. Review of Systems 2 Review of Systems: All 12 systems were reviewed and normal except as noted in HPI. [facility] Medical History Opiate dependence E coli bacteremia Smokers' cough White coat syndrome with hypertension GERD (gastroesophageal reflux disease) Bilateral primary osteoarthritis of knee Eczema Surgical History S/P placement of nerve stimulator History of incision and drainage Hx of varicose vein ligation Hx of tubal ligation History of surgery Hx of arthroscopic knee surgery Hx of hernia repair History of cholecystectomy Social History Household Members: Spouse Housing: Apartment Are you a primary care management coordinator to a significant other at home: No Do you presently have visiting nurse or other home services: No Alcohol intake: never Patient Tobacco Use Status: Current everyday Tobacco user Tobacco use type: Cigarette Cigarettes Per Day: 10 Years Smoked: 45 Smoked in Last 30 Days: Yes e-Cigarette/Vaping Use: Never Used Patient Interested in Nicotine Replacement: No Patient Given Instructions on How to Stop Smoking: Yes Date Education Initiated: 11/24/23 Second Hand Smoke Exposure: No Use of substances other than those prescribed or required for medical reasons: No Currently Displaying Signs/Symptoms of Drug Intoxication Withdrawal: No Have you been hit, kicked, punched, or otherwise hurt by someone within the past year? If so, by whom?: No Do you feel safe in your current relationship?: Yes Is there a partner from a previous relationship who is making you feel unsafe now?: No Are you made to feel afraid or neglected: No Spiritual Healthcare Practices: none Confucianism Healthcare Practices: none Cultural Healthcare Practices: none Are you DNR?: No Advance Directives Information Provided: Yes (as above noted-brochure given) Advance Directives on File: No Do you have a plan to hurt others: No Plan Recently lost weight without trying: No How much weight loss: Not applicable Eating poorly because of decreased appetite: No Nutrition screen score: 0 Nutrition Risks: No Nutritional Risk Patient : No FDLMP: n/a : No Poor oral hygiene: No Current occupational status: disabled Current occupation: rt hand Meds Allergies Allergy/AdvReac Type Severity Reaction Status Date / Time No Known Allergies Allergy Verified 11/19/23 10:14 Active Medications: Current Medications Acetaminophen (Acetaminophen 325 Mg Tablet) 650 mg PO Q6H PRN PRN Reason: Pain, Mild (Pain Scale 1-3), fever or headache Last Admin: 11/24/23 13:34 Dose: 650 mg Albuterol Sulfate (Albuterol Sulfate 90 Mcg 8 Gm Inhaler) 2 puff INHALE Q4H PRN PRN Reason: wheezing Amlodipine Besylate (Amlodipine Besylate 5 Mg Tablet) 5 mg PO DAILY [facility]; Protocol Celecoxib (Celecoxib 200 Mg Capsule) 200 mg PO BID [facility] Last Admin: 11/24/23 20:06 Dose: 200 mg Docusate Sodium (Docusate Sodium 100 Mg Capsule) 100 mg PO BID [facility] Last Admin: 11/24/23 20:10 Dose: 100 mg Enoxaparin Sodium (Enoxaparin Sodium 40 Mg/0.4 Ml Syringe) 40 mg SUBCUT Q24H [facility] Gabapentin (Gabapentin 600 Mg Tablet) 600 mg PO BID [facility] Last Admin: 11/24/23 20:07 Dose: 600 mg Hydromorphone HCl (Hydromorphone Hcl 0.5 Mg/0.5 Ml Syringe) 0.5 mg IVPUSH Q3H PRN; Protocol PRN Reason: Pain, Severe (Pain Scale 7-10) Last Admin: 11/24/23 17:51 Dose: 0.5 mg Acetaminophen (Ofirmev) 1,000 mg in 100 mls @ 400 mls/hr IV Q6H [facility] Stop: 11/25/23 13:14 Last Infusion: 11/24/23 17:47 Dose: Infused Melatonin (Melatonin 3 Mg Tablet) 6 mg PO BEDTIME PRN PRN Reason: Insomnia Last Admin: 11/24/23 20:08 Dose: 6 mg Nicotine (Nicotine 14 Mg Patch.Td24) 14 mg TRANSDERMA DAILY [facility] Last Admin: 11/24/23 15:06 Dose: 14 mg Omeprazole (Omeprazole 40 Mg Capsule.Dr) 40 mg PO DAILY@06 [facility] Last Admin: 11/24/23 11:24 Dose: Not Given Ondansetron HCl (Ondansetron Hcl 4 Mg/2 Ml Vial) 4 mg IVPUSH Q8H PRN PRN Reason: Nausea and Vomiting Oxycodone HCl (Oxycodone Hcl Er 10 Mg Tab.Er.12h) 10 mg PO BID [facility] Last Admin: 11/24/23 20:05 Dose: 10 mg Oxycodone HCl (Oxycodone Hcl Immed Release 5 Mg Tablet) 10 mg PO Q4H PRN PRN Reason: Pain, Moderate(Pain Scale 4-6) Last Admin: 11/24/23 21:29 Dose: 10 mg Sodium Chloride (0.9 % Sodium Chloride Flush 3 Ml Syringe) 3 ml IVFLUSH QSHIFT [facility] Last Admin: 11/24/23 20:15 Dose: 3 ml Home Medications ?Medication ?Instructions ?Recorded ?Confirmed ?Last Taken ?Type omeprazole 40 mg capsule,delayed 40 mg PO DAILY@0630 01/03/22 11/24/23 11/23/23 History release albuterol sulfate 90 mcg/actuation 2 puff inhalation Q4H PRN wheezing 11/17/23 11/19/23 11/23/23 History aerosol inhaler (Ventolin HFA) gabapentin 600 mg tablet 600 mg PO BID 11/17/23 11/19/23 11/23/23 History Physical Exam 2 Vital Signs and Narrative: Vital Signs: Last Vital Signs Temp 97.6 F 11/24/23 20:00 Pulse 71 11/24/23 20:00 Resp 18 11/24/23 20:00 BP 185/86 H 11/24/23 20:00 Pulse Ox 94 11/24/23 20:00 O2 Del Method Room Air 11/24/23 20:00 O2 Flow Rate 2 11/24/23 10:51 BMI result Body Mass Index 37.5 Constitutional - Awake and Alert, No apparent distress Eyes - PERRLA, EOMI Cardiovascular - S1S2, RRR, No edema Respiratory - Normal lung expansion, Normal respiratory effort, No respiratory distress, CTA bilaterally Gastrointestinal - NT / ND; +BS; No rebound or guarding Extremities - Right knee: tenderness. Distal pulses intact. Musculoskeletal - Normal inspection. Skin - Warm/Dry Neurological - Alert & oriented x3. No focal weakness grossly noted. Normal speech. Psychological - Appropriate affect Results Labs 11/24/23 06:45 11/24/23 12:52 Labs: Laboratory Results - last 24 hr 11/18/23 11/24/23 13:30 12:52 Estim Creat Clear Calc 87.0 Estimated GFR > 60 Blood Type O Positive Antibody Screen NEGATIVE Imaging Radiologist's Impressions: Impressions Knee X-Ray 11/24/23 09:45 IMPRESSION: Appropriate position of right knee prosthesis. Electronically signed by: Elijah Chaudhry MD 11/24/2023 11:02 AM EDT RP Assessment and Plan (1) Status post right knee replacement: Status: Acute (2) Elevated BP without diagnosis of hypertension: Status: Acute (3) Left knee pain: Qualifiers: Chronicity: chronic Qualified Code(s): M25.562 - Pain in left knee; G89.29 - Other chronic pain Status: Acute Plan Farrah Glover is a 58 years old woman s/p right keep surgery POD #0 with: * Elevated blood pressure. Likely multifactorial: Recent surgery, IV fluids, knee pain. Recommendations: -Discontinue IVFs, pt is tolerating fluids well. -Low-salt diet. -Amlodipine 5 mg PO now then daily. -Recheck BP in 3 hours. -Pain control (currently -10/02). -Follow-up w/ PCP as an outpatient. -Tobacco cessation education.
[2023-11-24] MEDS: amLODIPine Besylate 5 MG TABLET PO (22:03)
[2023-11-25] MEDS: Acetaminophen 1,000 MG/100 ML PIGGYBACK 400 MG IV ×2 (00:57→07:45)
[2023-11-25 01:04] VITALS: BP 145/71; PULSE 71; RESP 20; TEMP 36.2; O2SAT 96
[2023-11-25 01:27] VITALS: RESP 18
[2023-11-25 03:48] VITALS: BP 159/72; PULSE 62; RESP 18; TEMP 36.3; O2SAT 94
[2023-11-25] MEDS: oxyCODONE HCl Immed Release 5 MG TABLET 10 MG PO (04:37)
[2023-11-25 07:26] LABS: MANUAL DIFF FLAG NO
[2023-11-25 07:33] LABS: Basophils Percent Auto 0.2 % (0-2); Eosinophils Absolute Auto 0.1 X10*3/uL (0.0-0.4); Eosinophils Percent Auto 0.8 % (0-4); Hematocrit 37.6 % (37.0-47.0); Hemoglobin 12.7 g/dl (12.0-16.0); Imm Gran Abs Auto 0.05 X10*3/uL (0.00-0.03); Imm Gran Pct Auto 0.5 % (0.0-0.4); Lymphocytes Absolute Auto 2.5 X10*3/uL (1.2-4.9); Lymphocytes Percent Auto 23.7 % (20-40); Mean Corpuscular HGB Conc 33.8 g/dl (31.0-35.0); Mean Corpuscular Hemoglobin 29.1 pg (27.0-33.0); Mean Corpuscular Volume 86.2 fL (80.0-98.0); Mean Platelet Volume 11.3 fL (9.4-12.3); Monocytes Absolute Auto 0.8 X10*3/uL (0.1-1.2); Monocytes Percent Auto 7.4 % (2-11); Neutrophils Absolute Auto 7.1 x10*3/uL (2.0-8.3); Neutrophils Percent Auto 67.4 % (45-73); Platelet Count 200 X10*3/uL (160-400); Red Blood Count 4.36 X10*6/uL (4.20-5.50); Red Cell Distribution Width 12.8 % (11.0-16.0); White Blood Count 10.6 X10*3/uL (4.8-10.8)
[2023-11-25 07:47] VITALS: BP 150/72; PULSE 75; RESP 18; TEMP 36.9; O2SAT 95
[2023-11-25 07:49] LABS: Anion Gap 13 (12-20); Blood Urea Nitrogen 10 mg/dL (9-16); Carbon Dioxide 27 mmol/L (22-29); Chloride 104 mmol/L (96-108); Creatinine Clr Calc Pharmacy 89.4; Estimated Glomerular Filt Rate > 60; Glucose Fasting 146 mg/dL (60-99); Potassium 3.3 mmol/L (3.3-5.1); Sodium 141 mmol/L (135-145)
[2023-11-25] MEDS: Celecoxib 200 MG CAPSULE PO (08:44)
[2023-11-25] MEDS: 0.9 % Sodium Chloride Flush 3 ML SYRINGE IVFLUSH (08:44)
[2023-11-25] MEDS: Enoxaparin Sodium 40 MG/0.4 ML SYRINGE SUBCUT (08:44)
[2023-11-25] MEDS: Docusate Sodium 100 MG CAPSULE PO (08:44)
[2023-11-25] MEDS: Gabapentin 600 MG TABLET PO (08:44)
[2023-11-25] MEDS: oxyCODONE HCl ER 10 MG TAB.ER.12H PO (08:44)
--- NOTE | 2023-11-25 09:08 | HO.POSTANES ---
Post Anesthesia Evaluation Post Anesthesia Evaluation Date of Service: 11/24/23 Vital Signs: Vital Signs Temp Pulse Resp BP Pulse Ox O2 Del Method 11/25/23 07:47 98.5 F 75 18 150/72 H 95 Room Air 11/25/23 03:48 97.3 F 62 18 159/72 H 94 Room Air 11/25/23 01:27 18 11/25/23 01:04 97.1 F 71 20 145/71 H 96 Room Air 11/24/23 22:09 20 Anesthesia: Spinal Mental Status: Awake Pain Control: Satisfactory Nausea/Vomiting: None Hydration: Adequate Anesthesia-Related Issues: No Anes. Related Issues
--- NOTE | 2023-11-25 09:27 | MHC.CM.PN ---
CM MET WITH PT AT BEDSIDE. PT LIVES WITH SPOUSE. INDEPENDENT AT BASELINE. +HCP PCP DR. HUFFMAN DP: PT HAS BEEN MEDICALLY CLEARED FOR DC HOME WITH NEW [facility] FOR P.T. SERVICES. RN AWARE AND LOVENOX TEACHING HAS BEEN DONE. PT HAS OWN RIDE HOME.
--- NOTE | 2023-11-25 12:25 | P.PNIM_ITS ---
Subjective Subjective Date of Service: 11/25/23 Interval History: Being followed for hypertension. Patient resting comfortably offers no complaints of headache, no dizziness, no lightheadedness, no chest pain or palpitation no other acute issues. Review of Systems All other system reviewed and are negative. Physical Exam 2 Vital Signs: Vital Signs: Last Vital Signs Temp 98.5 F 11/25/23 07:47 Pulse 75 11/25/23 07:47 Resp 18 11/25/23 07:47 BP 150/72 H 11/25/23 07:47 Pulse Ox 95 11/25/23 07:47 O2 Del Method Room Air 11/25/23 07:47 O2 Flow Rate 2 11/24/23 10:51 BMI result Body Mass Index 37.5 Const: Other: General resting comfortably in no acute distress. Neck supple no JVD. CVS regular rate rhythm, Respiratory lungs clear to auscultation, no respiratory distress, no wheeze, no rhonchi. Gastrointestinal abdomen soft, non tender, bowel sounds audible, Right knee dressing in place Neuro non focal Skin no rash Objective Data Labs 11/25/23 06:04 11/25/23 06:04 Labs: Laboratory Results - last 24 hr 11/24/23 11/25/23 12:52 06:04 MCV 86.2 MCH 29.1 MCHC 33.8 RDW 12.8 Plt Count 200 D MPV 11.3 Immature Gran % (Auto) 0.5 H Neut % (Auto) 67.4 Lymph % (Auto) 23.7 [place] % (Auto) 7.4 Eos % (Auto) 0.8 Baso % (Auto) 0.2 Lymph # (Auto) 2.5 [place] # (Auto) 0.8 Eos # (Auto) 0.1 Baso # (Auto) 0.0 Abs Immat Gran (auto) 0.05 H Absolute Neuts (auto) 7.1 Absolute Nucleated RBC 0.000 Nucleated RBC % (auto) 0.0 Anion Gap 13 Estim Creat Clear Calc 87.0 89.4 Estimated GFR > 60 > 60 Fasting Glucose 146 H Calcium 9.0 Assessment and Plan (1) Elevated BP without diagnosis of hypertension: Status: Acute (2) Status post right knee replacement: Status: Acute Plan 58-year-old female status post right total knee replacement surgery postoperatively doing well with good pain control noted to have elevated blood pressure without prior history of hypertension Hypertension : previously undiagnosed noted to have elevated blood pressure postoperatively, started on amlodipine 5 mg by mouth daily, with good response. Recommend to continue amlodipine 5 mg daily upon discharge Recommend to follow blood pressure closely and adjust medication as per BP response Recommend good pain control s/p Right total knee arthroplasty Pain control/DVT prophylaxis as per ortho Tobacco use disorder Counseling done Class 2 obesity recommend low-calorie diet DVT prophylaxis on Lovenox Disposition as by orthopedic team Will sign off, please reconsult with any new medical issues. Quality Stroke Does the patient have a stroke diagnosis?: No VTE Prior VTE?: No VTE Risk Level:: Medical - moderate - high VTE Device Contraindication: Treatment Not Indicated VTE Drug Contraindication: N/A - Med Ordered
== END 2023-11-25 12:20 | disposition home or self-care (01) ==
LOC: HO.SSS 06:56 → HO.S3 10:40
PROVIDERS: Orthopaedic Surgery; PCP Internal Medicine; Visit Provider Physician Assistant
PROC: (CPT 27447; principal; 2023-11-24 07:30)
DX: M17.11 Unilateral primary osteoarthritis, right knee (principal); G89.29 Other chronic pain; M25.561 Pain in right knee; R03.0 Elevated blood-pressure reading, without diagnosis of hypertension; R51.9 Headache, unspecified; J41.0 Simple chronic bronchitis; L30.9 Dermatitis, unspecified; F11.21 Opioid dependence, in remission; Z79.899 Other long term (current) drug therapy; Z98.890 Other specified postprocedural states; F17.210 Nicotine dependence, cigarettes, uncomplicated
CPT/HCPCS: 27447; 36415; 73560; 80048; 82565; 85014; 85018; 85025; 86850; 86900; 86901; 87640; 87641; 88305; 88311; 97110; 97116; 97162; 97530; C1713; C1776; J0131; J0171; J0665; J0690; J1100; J1170; J1171; J1650; J2250; J2405; J2704; J3010; J7120

== ENCOUNTER → 2023-11-24 06:04 | Outpatient (BNV) | payer OTHER, SELFPAY | PROVIDERS: Visit Provider Orthopaedic Surgery | DX: Z96.651 Presence of right artificial knee joint (principal) | CPT/HCPCS: 27447; 99024 ==

== ENCOUNTER → 2023-11-24 06:04 | Outpatient (BNV) | payer OTHER, SELFPAY | PROVIDERS: Visit Provider Internal Medicine | DX: R03.0 Elevated blood-pressure reading, without diagnosis of hypertension (principal); Z47.1 Aftercare following joint replacement surgery; Z96.651 Presence of right artificial knee joint | CPT/HCPCS: 99222; 99232 ==

== ENCOUNTER 2023-11-26 13:15 | Outpatient (AMB) | payer OTHER, SELFPAY ==
--- NOTE | 2023-11-26 13:25 | MHC.OFFVIS ---
Intake Visit Reasons: PO: R TKA w/NE 11/24/23 - Bandage Change Intake Note: Farrah a 58 year old female who presents today for a post operative bandage change s/p right TKA on 11/24/23. Patient reports that when she was working with at home PT her incision started bleeding through her bandage. Allergies No Known Allergies Allergy (Verified 11/26/23 13:26) Medication List - Last Reconciled 11/26/23 by Jasmine Arguello PA-C acetaminophen 650 mg (2 x 325 mg) PO Q6H PRN 30 days albuterol sulfate 90 mcg/actuation (Ventolin HFA) 2 puffs inhalation Q4H PRN celecoxib 200 mg PO BID 30 days docusate sodium 100 mg PO BID 30 days enoxaparin 40 mg (0.4 mL) subcut Q24H 42 days gabapentin 600 mg PO BID omeprazole 40 mg PO DAILY@0630 oxycodone 10 mg PO Q4H PRN 7 days walker Folding Front wheeled walker HPI HPI PO: R TKA w/NE 11/24/23 - Bandage Change: Details: 58-year-old female who returns to the office today for post-op right TKA, 11/24/[address] Richmond. She presents today for a bandage change. She reports she was working on home physical therapy when her incision started bleeding through the bandage. [facility] Medical History Opiate dependence E coli bacteremia Smokers' cough White coat syndrome with hypertension GERD (gastroesophageal reflux disease) Bilateral primary osteoarthritis of knee Eczema Surgical History S/P placement of nerve stimulator History of incision and drainage Hx of varicose vein ligation Hx of tubal ligation History of surgery Hx of arthroscopic knee surgery Hx of hernia repair History of cholecystectomy Social History Household Members: Spouse Housing: Apartment Are you a primary managed care specialist to a significant other at home: No Do you presently have visiting nurse or other home services: No Alcohol intake: never Patient Tobacco Use Status: Current everyday Tobacco user Tobacco use type: Cigarette Cigarettes Per Day: 10 Years Smoked: 45 e-Cigarette/Vaping Use: Never Used Second Hand Smoke Exposure: No service: No Current occupational status: disabled Current occupation: rt hand Review of Systems Const All systems reviewed & are unremarkable except as noted in HPI and below Physical Exam Extrem Other: Right knee: Incision clean, dry and intact. Staple is intact. She has no redness but she does have minor swelling along surgical site. Calf supple, nontender. NVI. Assessment & Plan Assessment & Plan (1) Status post right knee replacement: Code(s): Z96.651 - Presence of right artificial knee joint Category: Surgical Plan A new surgical dressing was applied. She will keep this on till her routine postop appointment in 2 weeks, sooner if needed. Patient Instructions: Scribed for Jasmine Arguello PA-C, by Vernon Villareal medical officer, on 11/26/2023 at 1:30 PM EST.? I, Jasmine Arguello PA-C, have personally reviewed and agree with the information entered by the scribe. Coding Level of Care Code Global (85601) Diagnoses Status post right knee replacement Z96.651
== END 2023-11-26 13:35 | disposition home or self-care (01) ==
PROVIDERS: Visit Provider Physician Assistant
DX: Z96.651 Presence of right artificial knee joint (principal)
CPT/HCPCS: 99024

== ENCOUNTER → 2023-11-26 13:15 | Outpatient (BNVA) | payer OTHER, SELFPAY | PROVIDERS: Visit Provider Physician Assistant | DX: Z47.1 Aftercare following joint replacement surgery (principal); Z96.651 Presence of right artificial knee joint; Z98.890 Other specified postprocedural states | CPT/HCPCS: 99212 ==

== ENCOUNTER 2023-12-10 09:15 | Outpatient (AMB) | payer OTHER, SELFPAY ==
--- NOTE | 2023-12-10 09:31 | MHC.OFFVIS ---
Intake Visit Reasons: 2 WK PO: R TKA w/NE 11/24/23 Allergies No Known Allergies Allergy (Verified 11/26/23 13:26) HPI HPI 2 WK PO: R TKA w/NE 11/24/23: Details: 58-year-old female who returns to the office today for post-op right TKA, 11/24/[address] Richmond. She states she has no pain in her knee and is doing well overall. She has no concerns today. [facility] Medical History Opiate dependence E coli bacteremia Smokers' cough White coat syndrome with hypertension GERD (gastroesophageal reflux disease) Bilateral primary osteoarthritis of knee Eczema Surgical History S/P placement of nerve stimulator History of incision and drainage Hx of varicose vein ligation Hx of tubal ligation History of surgery Hx of arthroscopic knee surgery Hx of hernia repair History of cholecystectomy Social History Household Members: Spouse Housing: Apartment Are you a primary respiratory care practitioner to a significant other at home: No Do you presently have visiting nurse or other home services: No Alcohol intake: never Patient Tobacco Use Status: Current everyday Tobacco user Tobacco use type: Cigarette Cigarettes Per Day: 10 Years Smoked: 45 e-Cigarette/Vaping Use: Never Used Second Hand Smoke Exposure: No service: No Current occupational status: disabled Current occupation: rt hand Review of Systems Const All systems reviewed & are unremarkable except as noted in HPI and below Physical Exam Extrem Other: Right knee: Incision clean, dry and intact. No redness or drainage. ROM is 0-95 degrees. Calf supple, nontender. NVI. Assessment & Plan Assessment & Plan (1) Status post right knee replacement: Code(s): Z96.651 - Presence of right artificial knee joint Category: Surgical Plan [place] removed, steri strips applied. She does have an appointment 12/14/23 which she will keep and she will begin to transition to Outpatient PT to continue working on Gait training, ROM and quad strength. No driving for another 4 weeks. She will require ppx abx for dental procedures. She will f/u in 4 weeks, sooner if needed. Medications: Changed From oxycodone Partial Fill upon patient request. 10 mg PO Q4H 7 days PRN 42 tabs 0RF Pain, Moderate(Pain Scale 4-6) To oxycodone Partial Fill upon patient request. 10 mg PO Q6H PRN 42 tabs 0RF Pain, Moderate(Pain Scale 4-6) 7 days Patient Instructions: Scribed for Jasmine Arguello PA-C, by Vernon Villareal medical technologist hematology, on 12/10/2023 at 9:30 AM EST.? I, Jasmine Arguello PA-C, have personally reviewed and agree with the information entered by the scribe. Coding Level of Care Code Global (57582) Diagnoses Status post right knee replacement Z96.651
== END 2023-12-10 09:46 | disposition home or self-care (01) ==
PROVIDERS: Visit Provider Physician Assistant
DX: Z96.651 Presence of right artificial knee joint (principal)
CPT/HCPCS: 99024

== ENCOUNTER → 2023-12-10 09:15 | Outpatient (BNVA) | payer OTHER, SELFPAY | PROVIDERS: Visit Provider Physician Assistant | DX: Z47.1 Aftercare following joint replacement surgery (principal); Z96.651 Presence of right artificial knee joint | CPT/HCPCS: 99212 ==

== ENCOUNTER 2023-12-23 10:13 | Outpatient (AMB) | payer OTHER, SELFPAY ==
--- NOTE | 2023-12-23 10:18 | MHC.OFFVIS ---
Intake Visit Reasons: PO: R TKA w/NE 11/24/23 Intake Note: Farrah a 58 year old female who presents today for a post operative bandage change s/p right TKA on 11/24/23. Patient reports incision is opened at the lower end of incision. States bloody drainage from wound. She has numbness on the lateral side of her lower leg. Allergies No Known Allergies Allergy (Verified 12/23/23 10:25) HPI HPI PO: R TKA w/NE 11/24/23: Details: 58-year-old female who returns to the office today for post-op right TKA, 11/24/[address] Richmond. She presents today for a wound check. She states once the steri strips were applied she noticed some drainage from the inferior portion of the incision. She noted once the steri strips came off she did notice the incision was open but was hesitant to come in for wound check until it got significantly worse. She denies fever or chills. [facility]MERLY [facility], [facility] Medical History Opiate dependence E coli bacteremia Smokers' cough White coat syndrome with hypertension GERD (gastroesophageal reflux disease) Bilateral primary osteoarthritis of knee Eczema Surgical History S/P placement of nerve stimulator History of incision and drainage Hx of varicose vein ligation Hx of tubal ligation History of surgery Hx of arthroscopic knee surgery Hx of hernia repair History of cholecystectomy Social History Household Members: Spouse Housing: Apartment Are you a primary urgent care technician to a significant other at home: No Do you presently have visiting nurse or other home services: No Alcohol intake: never Patient Tobacco Use Status: Current everyday Tobacco user Tobacco use type: Cigarette Cigarettes Per Day: 10 Years Smoked: 45 e-Cigarette/Vaping Use: Never Used Second Hand Smoke Exposure: No service: No Current occupational status: disabled Current occupation: rt hand Review of Systems Const All systems reviewed & are unremarkable except as noted in HPI and below Physical Exam Const General: cooperative, healthy appearing, comfortable, no acute distress, well developed and alert Orientation/consciousness: patient oriented x3 HEENT Head: Yes normal to inspection, Yes normocephalic and Yes atraumatic Eyes General: appearance normal, both eyes and all related structures Neck Neck: Yes normal visual inspection and Yes no lymphadenopathy Resp Effort & Inspection: normal respiratory effort and able to speak in complete sentences Cardio Rate: regular rate Peripheral pulses: Peripheral pulses 2+ throughout GI Inspection: Yes normal to inspection Palpation (GI): Soft to palpation Skin General skin exam: no rashes or lesions noted Neuro General: patient oriented x3 Extrem Other: Right knee: Incision is healed except there is an area along the distal end of the incision which is approximately 2 inches long and 1 inch wide with erythematous borders and purulent drainage. Psych Appearance: grossly normal Mental Status: mental status grossly normal Assessment & Plan Assessment & Plan (1) Status post right knee replacement: Code(s): Z96.651 - Presence of right artificial knee joint Category: Surgical Plan The case was discussed with Dr. Richmond today. The decision was made to bring the patient to OR for irrigation and debridement of the surgical wound on right knee. She will be NPO from midnight tonight. I discussed the risks, benefits and alternatives, risks including but not limited to infection, pain, nerve and tissue damage, and risk of infection along the total knee prosthesis and need for further surgery. I also discussed the potential for iv abx for an extended period of time. She agrees with the plan and will move forward accordingly. Patient Instructions: Scribed for Jasmine Arguello PA-C, by Vernon Villareal medical receptionist medical assistant, on 12/23/2023 at 10:15 AM EST.? I, Jasmine Arguello PA-C, have personally reviewed and agree with the information entered by the scribe. Coding Level of Care Code Global (52793) Diagnoses Status post right knee replacement Z96.651
== END 2023-12-23 11:16 | disposition home or self-care (01) ==
LOC: HO.HOS 10:14
PROVIDERS: Visit Provider Physician Assistant
DX: Z96.651 Presence of right artificial knee joint (principal)
CPT/HCPCS: 99024

== ENCOUNTER → 2023-12-23 10:13 | Outpatient (BNVA) | payer OTHER, SELFPAY | PROVIDERS: Visit Provider Physician Assistant | DX: T81.89XA Other complications of procedures, not elsewhere classified, initial encounter (principal); X58.XXXA Exposure to other specified factors, initial encounter; Y93.9 Activity, unspecified; Y92.9 Unspecified place or not applicable; Y99.9 Unspecified external cause status; Z09 Encounter for follow-up examination after completed treatment for conditions other than malignant neoplasm; Z96.651 Presence of right artificial knee joint | CPT/HCPCS: 99212 ==

== ENCOUNTER 2023-12-24 11:46 | Outpatient (AMB) | payer OTHER, SELFPAY ==
--- NOTE | 2023-12-24 12:12 | MHC.OFFVIS ---
Intake Visit Reasons: OV - RT knee I&D 12/24/23 NE Intake Note: Farrah is a 58 year old female who presnets today for a wound check of her right knee s/p right TKA, 11/24/[address] Richmond. She presents today for a wound check. She states once the steri strips were applied she noticed some drainage from the inferior portion of the incision. She noted once the steri strips came off she did notice the incision was open but was hesitant to come in for wound check until it got significantly worse. She is booked for an irrigation & drainage today Allergies No Known Allergies Allergy (Verified 12/23/23 10:25) HPI HPI OV - RT knee I&D 12/24/23 NE: Details: Farrah is a 58 year old female who presents today for a wound check of her right knee s/p right TKA, 11/24/[address] Richmond. She presents today for a wound check. She states once the steri strips were applied she noticed some drainage from the inferior portion of the incision. She noted once the steri strips came off she did notice the incision was open but was hesitant to come in for wound check until it got significantly worse. She is booked for an irrigation & drainage today [facility] Medical History Opiate dependence E coli bacteremia Smokers' cough White coat syndrome with hypertension GERD (gastroesophageal reflux disease) Bilateral primary osteoarthritis of knee Eczema Surgical History S/P placement of nerve stimulator History of incision and drainage Hx of varicose vein ligation Hx of tubal ligation History of surgery Hx of arthroscopic knee surgery Hx of hernia repair History of cholecystectomy Social History Household Members: Spouse Housing: Apartment Are you a primary childcare provider to a significant other at home: No Do you presently have visiting nurse or other home services: No Alcohol intake: never Patient Tobacco Use Status: Current everyday Tobacco user Tobacco use type: Cigarette Cigarettes Per Day: 10 Years Smoked: 45 e-Cigarette/Vaping Use: Never Used Second Hand Smoke Exposure: No service: No Current occupational status: disabled Current occupation: rt hand Physical Exam Extrem Other: Open wound over the distal 2 cm of the incision. malodorous and slightly erythematous with tenderness around the periphery. No knee effusion. Assessment & Plan Assessment & Plan (1) Open wound of knee: Code(s): S81.009A - Unspecified open wound, unspecified knee, initial encounter Category: Medical Plan: This is a 50-year-old woman is approximately 4 weeks status post right knee replacement with a open wound of the distal aspect of the incision. No hardware visible but is this is likely infected. I recommend debridement in the operating room. Cultures will be taken him she will be started on antibiotics. (2) Status post right knee replacement: Code(s): Z96.651 - Presence of right artificial knee joint Category: Surgical Plan: No evidence yet of prosthetic involvement but at risk. Coding Level of Care Code Est Pt Level 4 (95615) Diagnoses Open wound of knee S81.009A Status post right knee replacement Z96.651
== END 2023-12-24 12:59 | disposition home or self-care (01) ==
LOC: HO.HOS 11:46
PROVIDERS: PCP Internal Medicine; Visit Provider Orthopaedic Surgery
DX: Z47.1 Aftercare following joint replacement surgery (principal); Z96.651 Presence of right artificial knee joint; S81.001A Unspecified open wound, right knee, initial encounter
CPT/HCPCS: 99214

== ENCOUNTER → 2023-12-24 13:17 | Outpatient (BNV) | payer OTHER, SELFPAY | PROVIDERS: PCP Internal Medicine; Visit Provider Orthopaedic Surgery | DX: S81.001A Unspecified open wound, right knee, initial encounter (principal); Z96.651 Presence of right artificial knee joint | CPT/HCPCS: 11042; 97605; 99024; 99212; G0180 ==

== ENCOUNTER 2023-12-24 16:42 | Inpatient (IN) | payer OTHER, SELFPAY ==
[2023-12-24 14:18] VITALS: BMI 37.4
[2023-12-24 14:42] VITALS: BP 164/90; PULSE 73; RESP 18; TEMP 36.9; O2SAT 96
--- NOTE | 2023-12-24 15:15 | P.CONAN_ITS ---
HPI - Anesthesia Eval Consult details Narrative: 58 yo F presenting for I&D of right knee. Had a right TKA on 11/24/23. Presented with open wound at surgical site. Surgeon requested holding off on antibiotics until cultures are obtained intraoperatively. PMFSH Active Problems Active Problems: All Active Problems Open wound of knee (Acute) Elevated BP without diagnosis of hypertension (Acute) Status post right knee replacement (Acute) Osteoarthritis of right knee (Acute) Left knee pain (Acute) Right knee pain (Acute) Bilateral primary osteoarthritis of knee (Acute) Past Medical History Medical History Opiate dependence E coli bacteremia Smokers' cough White coat syndrome with hypertension GERD (gastroesophageal reflux disease) Bilateral primary osteoarthritis of knee Eczema Family History Family history of problems with anesthesia: No Surgical History Surgical History S/P placement of nerve stimulator History of incision and drainage Hx of varicose vein ligation Hx of tubal ligation History of surgery Hx of arthroscopic knee surgery Hx of hernia repair History of cholecystectomy History of Problems with Anesthesia: No Social History Social History Household Members: Spouse Household Members Other:: 2 granddaughters Housing: Apartment Are you a primary sub acute care nurse to a significant other at home: Yes Do you presently have visiting nurse or other home services: No Alcohol intake: never Patient Tobacco Use Status: Current everyday Tobacco user Tobacco use type: Cigarette Cigarette Packs Per Day: 0.5 Cigarettes Per Day: 10.0 Years Smoked: 45 e-Cigarette/Vaping Use: Never Used Second Hand Smoke Exposure: No Use of substances other than those prescribed or required for medical reasons: No Have you been hit, kicked, punched, or otherwise hurt by someone within the past year? If so, by whom?: No Are you DNR?: No Advance Directives: No Advance Directives Information Provided: Yes service: No Current occupational status: disabled Current occupation: rt hand Meds Allergies Allergy/AdvReac Type Severity Reaction Status Date / Time No Known Allergies Allergy Verified 12/24/23 14:18 Active Medications: Current Medications Lactated Ringer's (Lr) 1,000 mls @ 100 mls/hr IVCONT .Q10H JOH[place]ON Home Medications ?Medication ?Instructions ?Recorded ?Confirmed ?Last Taken ?Type omeprazole 40 mg capsule,delayed 40 mg PO DAILY@0630 01/03/22 12/24/23 11/23/23 History release albuterol sulfate 90 mcg/actuation 2 puff inhalation Q4H PRN wheezing 11/17/23 12/24/23 11/23/23 History aerosol inhaler (Ventolin HFA) gabapentin 600 mg tablet 600 mg PO BID 11/17/23 12/24/23 11/23/23 History Exam Exam Date and Time: 12/24/23 1515 Height,Weight and Vital Signs: Height 5 ft 1 in Weight 89.811 kg Last Vital Signs Temp 98.5 F 12/24/23 14:42 Pulse 73 12/24/23 14:42 Resp 18 12/24/23 14:42 BP 164/90 H 12/24/23 14:42 Pulse Ox 96 12/24/23 14:42 O2 Del Method Room Air 12/24/23 14:42 Airway Mallampati Class: II TM Dist: >3cm Neck ROM: Full Loose/Missing/Broken Teeth: Yes (Edentulous top jaw. Poor dentition lower jaw bu t patient denies any loose or broken teeth) Heart: S1S2 Lungs: CTAB Assessment and Plan Assessment Anesthesia Assessment: Anesthesia Plan Discussed Final Anesthetic Review Family History of Problems with Anesthesia: No History of Problems with Anesthesia: No NPO: Yes ASA Class: III Final Preanesthetic Review: No Changes in Pt Med Stat, Meds/Allgs Chart Reviewed, Consent Obtained/Reviewed and Anes Risks/Benef Reviewed Patient Risk: Intermediate Procedure Risk: Low Anesthetic Plan Anesthetic Plan: MAC: and Regional Block (right adductor canal block) Disposition: Standard PACU
--- NOTE | 2023-12-24 15:16 | MHC.SHP ---
Pre-Procedural Eval Section A - 24 Hr Update-Section A only Date of Service: 12/24/23 The patient is an INPATIENT: No Changes since office visit: No Cold of Flu in the past 2 weeks, No New Medical Problems, No Changes in Medication and No Patient answered all questions The patient has been examined within 24 hours of the surgical procedure. The History & Physical has been completed within 30 days and I have reviewed it.: Yes Section B - Complete if H&P > 30 days Chief Complaint: Disruption of external operation (surgical) wound Allergies: Allergies Allergy/AdvReac Type Severity Reaction Status Date / Time No Known Allergies Allergy Verified 12/24/23 14:18 Plan I have reviewed the history and physical and performed a pertinent physical examination on my patient. No changes have occurred unless specified. Time Spent With Patient Time: Total time managing care of this patient today ____ minutes.
[2023-12-24] MEDS: vancomycin HCL 1,500 MG in 0.9 % Sodium Chloride 500 ML 333.33 MG IV (16:32)
[2023-12-24 16:33] VITALS: BP 189/84; PULSE 81; RESP 20; TEMP 37.1; O2SAT 98
--- NOTE | 2023-12-24 16:42 | P.BOP_ITS ---
Brief Operative Note Date of Service: 12/24/23 Pre-op diagnosis: Right knee wound infection Post-op diagnosis: same Procedure: Irrigation and debridement right TKA incision Wound vac placement Surgeon: Corky Richmond MD Anesthesia: GLMA and regional Was an Therapy Technician used for this Procedure?: No Estimated blood loss (mL): 20 IV fluids (mL): 500 Pathology: none sent Condition: stable Disposition: PACU
[2023-12-24 16:48] VITALS: BP 188/88; PULSE 74; RESP 18; O2SAT 98
[2023-12-24 17:03] VITALS: BP 163/83; PULSE 73; RESP 18; O2SAT 99
[2023-12-24] MEDS: HYDROmorphone HCl 0.5 MG/0.5 ML SYRINGE 0.25 MG IVPUSH (17:54)
[2023-12-24] MEDS: Nicotine 7 MG PATCH.TD24 TRANSDERMA (18:01)
[2023-12-24 18:18] VITALS: BP 160/72; PULSE 76; RESP 18; TEMP 37.2; O2SAT 93
--- NOTE | 2023-12-24 18:31 | PHA.MEDREC ---
Addendum entered by Gigi Araujo 12/24/23 18:36: reviewed Original Note: Pharmacy Consult ? Medication Reconciliation Pharmacy has reviewed the medication reconciliation done by nursing. Spoke to patient to confirm med list. Patient states she is no longer on Celecoxib 200 mg. Patient confirmed she was taking Enoxaparin 40 mg qd , last dose was 12/23/23. patient isn't sure if the Dr will continue after surgery. She states she has 6 doses left at home.
[2023-12-24 18:33] LABS: Vancomycin Trough 37.1 mcg/mL (10.0-20.0)
[2023-12-24 18:41] LABS: Creatinine Clr Calc Pharmacy 96.1; Estimated Glomerular Filt Rate > 60
[2023-12-24 19:11] VITALS: BP 158/78; PULSE 91; RESP 14; TEMP 36.4; O2SAT 93
[2023-12-24] MEDS: Lactated Ringers 1,000 ML 100 ML IVCONT (22:28)
[2023-12-24] MEDS: Gabapentin 600 MG TABLET PO (22:28)
[2023-12-25] MEDS: oxyCODONE HCl Immed Release 5 MG TABLET PO ×4 (00:06→22:43)
[2023-12-25 02:41] VITALS: BP 168/78; PULSE 81; RESP 16; TEMP 36.1; O2SAT 93
[2023-12-25] MEDS: Omeprazole 40 MG CAPSULE.DR PO (05:41)
[2023-12-25] MEDS: vancomycin HCL 1,250 MG in 0.9 % Sodium Chloride 250 ML 166.67 MG IV (05:41)
[2023-12-25 06:47] LABS: Creatinine Clr Calc Pharmacy 96.1; Estimated Glomerular Filt Rate > 60
[2023-12-25 07:46] VITALS: BP 181/93; PULSE 70; RESP 18; TEMP 36.9; O2SAT 93
[2023-12-25] MEDS: Nicotine 7 MG PATCH.TD24 TRANSDERMA (08:14)
[2023-12-25] MEDS: Gabapentin 600 MG TABLET PO ×2 (08:14→20:32)
--- NOTE | 2023-12-25 09:09 | HO.POSTANES ---
Post Anesthesia Evaluation Post Anesthesia Evaluation Date of Service: 12/24/23 Vital Signs: Vital Signs Temp Pulse Resp BP Pulse Ox O2 Del Method 12/25/23 07:46 98.4 F 70 18 181/93 H 93 Room Air 12/25/23 02:41 97 F 81 16 168/78 H 93 Room Air Anesthesia: General Mental Status: Awake Pain Control: Satisfactory Nausea/Vomiting: None Hydration: Adequate Anesthesia-Related Issues: No Anes. Related Issues
--- NOTE | 2023-12-25 09:47 | PM.PNORT ---
Subjective Subjective Date of Service: 12/25/23 Interval history: POD 1 s/p Rt knee I&D 12/14/23 with NE -no overnight events -resting in bed with wound vac intact Denies sob, cp, palpitations. Physical Exam Vital Signs: Vital Signs: Last Vital Signs Temp 98.4 F 12/25/23 07:46 Pulse 70 12/25/23 07:46 Resp 18 12/25/23 07:46 BP 181/93 H 12/25/23 07:46 Pulse Ox 93 12/25/23 07:46 O2 Del Method Room Air 12/25/23 07:46 O2 Flow Rate 4 12/24/23 17:03 BMI result Body Mass Index 37.4 Const: General: cooperative, healthy appearing and no acute distress Resp: Effort & Inspection: normal respiratory effort and able to speak in complete sentences Cardio: Rate: regular rate Peripheral pulses: Peripheral pulses 2+ throughout GI: Palpation (GI): Soft to palpation Skin: General skin exam: no rashes or lesions noted Extrem: Other: Right knee incision healed, wound vac intact to distal end of incision. Procedures Date of Service Date of Service: 12/25/23 Progress Note: A&P Assessment and plan (1) Open wound of knee: Status: Acute (2) Status post right knee replacement: Status: Acute Plan Pain mgmnt Lovenox for dvt ppx Picc line Vanco with torugh after 4th dose Wound vac-change at bedside tomorrow Time Spent With Patient Time: Total time managing care of this patient today ____ minutes. Quality Stroke Does the patient have a stroke diagnosis?: No VTE Prior VTE?: No VTE Risk Level:: Surgical - very high VTE Device Contraindication: N/A - Device Ordered VTE Drug Contraindication: N/A - Med Ordered
[2023-12-25] MEDS: Enoxaparin Sodium 40 MG/0.4 ML SYRINGE SUBCUT (10:45)
--- NOTE | 2023-12-25 12:46 | HO.PICC ---
PICC Line Insertion NPICC Diagnosis: TKA infection Indication: mcc ABT Pertinent Labs: reviewed Technique: Following informed consent including risks, benefits and alternatives and using sterile technique including cap and mask, sterile gown, glove and drape, the right arm was prepped and draped in the usual sterile fashion of full barrier technique with CHG. Following completion of [place] Protocol the skin and soft tissues were anesthetized with 1% Lidocaine plain. Using ultrasound guidance, right basilic vein access was obtained by Kenney HAWKINS. Over an 0.018 wire through peel-away sheath, a 4fr single lumen PASV PICC line was positioned. Catheter length is 34cm internal length, 0cm external length, for a total trimmed length of 34cm. The procedure was performed in rm 272. Tip verification was performed by Juany Esqueda with Sherlock 3CG. Tip located in SVC. Ultrasound was used to document vein patency and for needle entry. A formal ultrasound picture and cardiac rhythm strip was recorded. [facility] [employer] Lab Tech has released the line for use and it is currently dressed with a StatLock, Tegaderm, and CHG disc. Verification has been performed for blood return and line patency. Arm Circumference: 34cm Equipment: [employer] PowerPICC catheter with sherlock 3CG Tip Catheter Type: 4FR single lumen PASV Lot #: [id number]
[2023-12-25] MEDS: Lactated Ringers 1,000 ML 100 ML IVCONT ×2 (13:46→22:57)
--- NOTE | 2023-12-25 14:19 | W.PM.OPN ---
Operative Note Operative Note Date of Service: 12/25/23 Narrative: Date of Service: 12/24/23 Pre-op diagnosis: Right knee wound infection Post-op diagnosis: same Procedure: Irrigation and debridement right TKA incision Wound vac placement Surgeon: Corky Richmond MD Anesthesia: GLMA and regional Was an Pet Store Merchandiser used for this Procedure?: No Estimated blood loss (mL): 20 IV fluids (mL): 500 Pathology: none sent Condition: stable Disposition: PACU Patient was brought to the operating room and placed supine on the surgical table. She was prepped and draped in standard sterile fashion and a time out was called to identify proper site, proper procedure and IV antibiotics per weight were administered. Began by examining. She dehiscence of the distal 2.5 cm. The wound beasured 2.5 x 1.5 cm. There was fibrinous tissue that was malodorous but there was no olive purulence. I used a combination of a curette and rongeur and a 15 blade to remove necrotic tissue and examined the wound. It was directly over tibial tubercle and the distal patellar tendon. There was no deep penetration and no discharge of fluid. I probed aggressively circumferentially and there was no deep penetration. This appeared to be contained to the superficial surface superficial to the patellar tendon. There was nothing to culture I felt that culturing fibrinous tissue resulted polymicrobial contaminant therefore I irrigated copiously. I then placed a small wound VAC sponge set this to 125 Hg. I was satisfied with the results. IV antibiotics were started and she was brought to the hospital is stable condition. There were no known complications.
[2023-12-25 15:12] VITALS: BP 175/79; PULSE 74; RESP 17; TEMP 36.8; O2SAT 93
--- NOTE | 2023-12-25 15:17 | MHC.CM.PN ---
Pt self-care, lives at home with her and two teenage children. Pt uses a cane and a walker. Pts friend Alireza will transport her home at discharge. HCP on file and verified. DCP: Home with new [facility] services and [facility] infusion services and a new wound vac. PCP: Dr. Dirk Zarate
[2023-12-25] MEDS: HYDROmorphone HCl 0.5 MG/0.5 ML SYRINGE 0.25 MG IVPUSH (19:31)
[2023-12-25 20:00] VITALS: BP 156/80; PULSE 71; RESP 18; TEMP 36.9; O2SAT 96
[2023-12-26] MEDS: oxyCODONE HCl Immed Release 5 MG TABLET PO ×3 (03:30→12:26)
[2023-12-26 04:00] VITALS: BP 168/84; PULSE 70; RESP 18; TEMP 36.6; O2SAT 96
[2023-12-26] MEDS: Omeprazole 40 MG CAPSULE.DR PO (05:42)
[2023-12-26 07:19] LABS: Creatinine Clr Calc Pharmacy 94.7; Estimated Glomerular Filt Rate > 60
[2023-12-26 07:32] VITALS: BP 184/86; PULSE 64; RESP 17; TEMP 36.6; O2SAT 94
[2023-12-26] MEDS: Lactated Ringers 1,000 ML 100 ML IVCONT (08:19)
[2023-12-26] MEDS: Gabapentin 600 MG TABLET PO ×2 (08:19→20:28)
[2023-12-26] MEDS: Nicotine 7 MG PATCH.TD24 TRANSDERMA (08:19)
--- NOTE | 2023-12-26 10:44 | PHA.PROG ---
Admission Date/Time: December 24, 2023 16:42 Indication: Weight in k.811 kg Adjusted body weight in Kg: [place] body weight in Kg: Obesity Dosing Indication % IBW: Serum Creatinine - Last 168 Hours 12/24/23 12/25/23 12/26/23 17:56 05:24 05:40 Creatinine 0.65 0.65 0.66 Estimated CrCl and GFR - Last 168 Hours 12/24/23 12/25/23 12/26/23 17:56 05:24 05:40 Estim Creat Clear Calc 96.1 96.1 94.7 Estimated GFR > 60 > 60 > 60 Vancomycin Loading Dose:1,500 ONCE ON 12/23 AND 1250 ONCE ON 12/24 Current Vancomycin Dosing Regimen:1250 Q12 Vancomycin Monitoring using AUC goal of 400 - 600 range with trough as surrogate marker: 528 Date and Time for next Vancomycin Level to be drawn: 12/27/23 @0900 Vancomycin Trough 37.1 mcg/mL (10.0-20.0) H* 12/24/23 17:56 Pharmacist Comments on Vancomycin Plan: POST OP DOSE GIVEN ON 12/23 AND ONE TIME DOSE 1250 GIVEN ON 12/24 BEFORE PROVIDER DECIDED TO CONTINUE ON VANCO TREATMENT FOR PATIENT. WILL OBTAIN LEVEL 12/27/23 AFTER 2 DOSES GIVEN ON 12/25 TO ASSESS SAFETY AND EFFICACY Vancomycin dosing will take advantage of [employer] as a clinical decision support tool that uses Bayesian modeling to calculate individual patient's pharmacokinetic parameters and forecast the patient's drug concentration time course with the target goal AUC 24 range of 400 - 600 mg/L/hr.
[2023-12-26 11:03] LABS: MANUAL DIFF FLAG NO
[2023-12-26 11:08] LABS: Basophils Percent Auto 0.3 % (0-2); Eosinophils Absolute Auto 0.2 X10*3/uL (0.0-0.4); Eosinophils Percent Auto 2.3 % (0-4); Hematocrit 36.5 % (37.0-47.0); Hemoglobin 12.5 g/dl (12.0-16.0); Imm Gran Abs Auto 0.03 X10*3/uL (0.00-0.03); Imm Gran Pct Auto 0.3 % (0.0-0.4); Lymphocytes Absolute Auto 3.3 X10*3/uL (1.2-4.9); Lymphocytes Percent Auto 36.4 % (20-40); Mean Corpuscular HGB Conc 34.2 g/dl (31.0-35.0); Mean Corpuscular Hemoglobin 29.6 pg (27.0-33.0); Mean Corpuscular Volume 86.5 fL (80.0-98.0); Mean Platelet Volume 10.6 fL (9.4-12.3); Monocytes Absolute Auto 0.6 X10*3/uL (0.1-1.2); Monocytes Percent Auto 6.8 % (2-11); Neutrophils Absolute Auto 4.9 x10*3/uL (2.0-8.3); Neutrophils Percent Auto 53.9 % (45-73); Platelet Count 202 X10*3/uL (160-400); Red Blood Count 4.22 X10*6/uL (4.20-5.50); Red Cell Distribution Width 13.4 % (11.0-16.0); White Blood Count 9.1 X10*3/uL (4.8-10.8)
[2023-12-26 11:21] LABS: Vancomycin Trough 2.9 mcg/mL (10.0-20.0)
[2023-12-26 11:22] LABS: Anion Gap 12 (12-20); Blood Urea Nitrogen 11 mg/dL (9-16); Calcium 9.3 mg/dL (8.4-10.2); Carbon Dioxide 26 mmol/L (22-29); Chloride 110 mmol/L (96-108); Creatinine Clr Calc Pharmacy 94.7; Estimated Glomerular Filt Rate > 60; Glucose Random 129 mg/dL (60-115); Potassium 3.6 mmol/L (3.3-5.1); Sodium 144 mmol/L (135-145)
[2023-12-26] MEDS: vancomycin HCL 1,250 MG in 0.9 % Sodium Chloride 250 ML 166.67 MG IV (11:51)
[2023-12-26] MEDS: Enoxaparin Sodium 40 MG/0.4 ML SYRINGE SUBCUT (11:51)
[2023-12-26 12:49] VITALS: BP 184/86; PULSE 64; O2SAT 94
--- NOTE | 2023-12-26 13:43 | P.PNOP_ITS ---
Subjective Subjective Date of Service: 12/26/23 Principal diagnosis: open wound right knee Interval history: no overnight events pain controlled Physical Exam Vital Signs: Vital Signs: Last Vital Signs Temp 98 F 12/26/23 07:32 Pulse 64 12/26/23 12:49 Resp 17 12/26/23 07:32 BP 184/86 H 12/26/23 12:49 Pulse Ox 94 12/26/23 12:49 O2 Del Method Room Air 12/26/23 07:32 O2 Flow Rate 4 12/24/23 17:03 BMI result Body Mass Index 37.4 Extrem: Other: 4cm x 2 cm open full thickness wound wit h no deep penetration wound vac holding suction with minimal collected fluid. Procedures Date of Service Date of Service: 12/26/23 Progress Note: A&P Assessment and plan (1) Open wound of knee: Status: Acute Assessment and Plan: open wound: Wound vac changed and wound looks healthy Will adjust vanco pr trough dvt prophylaxis oob as tolerated Time Spent With Patient Time: Total time managing care of this patient today 20____ minutes. Quality Stroke Does the patient have a stroke diagnosis?: No VTE Prior VTE?: No VTE Risk Level:: Surgical - very high VTE Device Contraindication: N/A - Device Ordered VTE Drug Contraindication: N/A - Med Ordered
[2023-12-26] MEDS: HYDROmorphone HCl 0.5 MG/0.5 ML SYRINGE 0.25 MG IVPUSH ×2 (13:48→20:28)
[2023-12-26 15:10] VITALS: BP 157/83; PULSE 80; RESP 18; TEMP 36.6; O2SAT 95
[2023-12-26] MEDS: oxyCODONE HCl Immed Release 5 MG TABLET 10 MG PO ×2 (15:31→22:21)
--- NOTE | 2023-12-26 16:05 | P.CONHOSP_ITS ---
History of Present Illness Data of Consult Service Date: 12/26/23 Primary Care Provider: Dirk Zarate MD [facility] Reason for consult: HTN Patient is a 58 year old female PMH significant for mild intermittent asthma, GERD, and osteoarthritis who was admitted to the hospital under orthopedic services for irrigation and debridement of right TKA incision with wound VAC placement. Original TKA took place on 11/24/2023. POD2. Hospitalist consult for hypertension management. Patient has been noted to be persistently hypertensive while in the hospital, as high as 189/84. Patient reports her BP is only high whenever she is hospitalized. She is not on home antihypertensives and follows regularly with a PCP. Also has had home PT who reportedly have not found her to be persistently hypertensive at home. Patient complains of 5/10 right knee pain, the pain is starting to improve since recent analgesics 20 minutes ago. Otherwise has no acute medical complaints. Denies fever, chills. No headache or acute vision changes. No nausea, vomiting, abdominal pain. Denies shortness or breath or difficulty breathing. No chest pain/pressure, palpitations. Review of Systems 2 Review of Systems: Yes all other systems are reviewed and are negative [facility] Medical History Opiate dependence E coli bacteremia Smokers' cough White coat syndrome with hypertension GERD (gastroesophageal reflux disease) Bilateral primary osteoarthritis of knee Eczema Surgical History S/P placement of nerve stimulator History of incision and drainage Hx of varicose vein ligation Hx of tubal ligation History of surgery Hx of arthroscopic knee surgery Hx of hernia repair History of cholecystectomy Social History Household Members: Spouse and Family Household Members Other:: 2 granddaughters Housing: Apartment Are you a primary direct care provider to a significant other at home: Yes Do you presently have visiting nurse or other home services: No Alcohol intake: never Patient Tobacco Use Status: Current everyday Tobacco user Tobacco use type: Cigarette Cigarette Packs Per Day: 0.5 Cigarettes Per Day: 10 Years Smoked: 40 Smoked in Last 30 Days: Yes e-Cigarette/Vaping Use: Never Used Patient Interested in Nicotine Replacement: Yes Second Hand Smoke Exposure: Yes (spouse) Use of substances other than those prescribed or required for medical reasons: No Currently Displaying Signs/Symptoms of Drug Intoxication Withdrawal: No Have you been hit, kicked, punched, or otherwise hurt by someone within the past year? If so, by whom?: No Do you feel safe in your current relationship?: Yes Is there a partner from a previous relationship who is making you feel unsafe now?: No Are you made to feel afraid or neglected: No Are you DNR?: No Advance Directives: No Advance Directives Information Provided: Yes Do you have a plan to hurt others: No Plan Recently lost weight without trying: No Eating poorly because of decreased appetite: No Nutrition Risks: No Nutritional Risk Patient : No : No Poor oral hygiene: No service: No Current occupational status: disabled Current occupation: rt hand [employer] Allergies Allergy/AdvReac Type Severity Reaction Status Date / Time No Known Allergies Allergy Verified 12/24/23 14:18 Active Medications: Current Medications Acetaminophen (Acetaminophen 325 Mg Tablet) 650 mg PO Q6H PRN PRN Reason: Pain, Mild (Pain Scale 1-3), fever or headache Albuterol Sulfate (Albuterol Sulfate 90 Mcg 8 Gm Inhaler) 2 puff INHALE Q4H PRN PRN Reason: wheezing Enoxaparin Sodium (Enoxaparin Sodium 40 Mg/0.4 Ml Syringe) 40 mg SUBCUT Q24H [facility] Last Admin: 12/26/23 11:51 Dose: 40 mg Gabapentin (Gabapentin 600 Mg Tablet) 600 mg PO BID [facility] Last Admin: 12/26/23 08:19 Dose: 600 mg Hydromorphone HCl (Hydromorphone Hcl 0.5 Mg/0.5 Ml Syringe) 0.25 mg IVPUSH Q4H PRN; Protocol PRN Reason: Pain, Severe (Pain Scale 7-10) Last Admin: 12/26/23 13:48 Dose: 0.25 mg Vancomycin HCl 1,250 mg/ (Sodium Chloride) 250 mls @ 166.667 mls/hr IV Q12H [facility] Last Infusion: 12/26/23 13:54 Dose: Infused Nicotine (Nicotine 7 Mg Patch.Td24) 7 mg TRANSDERMA DAILY [facility] Last Admin: 12/26/23 08:19 Dose: 7 mg Omeprazole (Omeprazole 40 Mg Capsule.Dr) 40 mg PO DAILY@0630 [facility] Last Admin: 12/26/23 05:42 Dose: 40 mg Oxycodone HCl (Oxycodone Hcl Immed Release 5 Mg Tablet) 10 mg PO Q4H PRN PRN Reason: Pain, Moderate(Pain Scale 4-6) Last Admin: 12/26/23 15:31 Dose: 10 mg Pharmacy Consult (Consult Rx Vancomycin Dosing) 1 each MISCELLANE DAILY PRN PRN Reason: Consult order Home Medications ?Medication ?Instructions ?Recorded ?Confirmed ?Last Taken ?Type omeprazole 40 mg capsule,delayed 40 mg PO DAILY@0630 01/03/22 12/24/23 12/23/23 History release albuterol sulfate 90 mcg/actuation 2 puff inhalation Q4H PRN wheezing 11/17/23 12/24/23 11/23/23 History aerosol inhaler (Ventolin HFA) gabapentin 600 mg tablet 600 mg PO BID 11/17/23 12/24/23 12/23/23 History Physical Exam 2 Vital Signs and Narrative: Vital Signs: Last Vital Signs Temp 97.9 F 12/26/23 15:10 Pulse 80 12/26/23 15:10 Resp 18 12/26/23 15:10 BP 157/83 H 12/26/23 15:10 Pulse Ox 95 12/26/23 15:10 O2 Del Method Room Air 12/26/23 15:10 O2 Flow Rate 4 12/24/23 17:03 BMI result Body Mass Index 37.4 General: AOx3, no acute distress Resp: CTA bilaterally CVS: S1, S2, RRR Neuro: Cranial nerves II-XII grossly intact bilaterally. Motor grossly intact bilaterally Extremities: No edema. Right knee with clean dressing and wound vac in place. Psych: Appropriate affect Results Labs 12/26/23 10:52 12/26/23 10:52 Labs: Laboratory Results - last 24 hr 12/26/23 12/26/23 05:40 10:52 MCV 86.5 MCH 29.6 MCHC 34.2 RDW 13.4 Plt Count 202 MPV 10.6 Immature Gran % (Auto) 0.3 Neut % (Auto) 53.9 Lymph % (Auto) 36.4 [place] % (Auto) 6.8 Eos % (Auto) 2.3 Baso % (Auto) 0.3 Lymph # (Auto) 3.3 [place] # (Auto) 0.6 Eos # (Auto) 0.2 Baso # (Auto) 0.0 Abs Immat Gran (auto) 0.03 Absolute Neuts (auto) 4.9 Absolute Nucleated RBC 0.000 Nucleated RBC % (auto) 0.0 Hold Purple Top SEE NOTE Anion Gap 12 Estim Creat Clear Calc 94.7 94.7 Estimated GFR > 60 > 60 Random Glucose 129 H Calcium 9.3 Vancomycin Trough 2.9 L Assessment and Plan (1) HTN (hypertension): Status: Acute Plan Patient is a 58 year old female PMH significant for mild intermittent asthma, GERD, and osteoarthritis who was admitted to the hospital under orthopedic services for irrigation and debridement of right TKA incision with wound VAC placement. Original TKA took place on 11/24/2023. POD2. Hospitalist consult for hypertension management. Right TKA s/p debridement Plan as per Orthopedics Hypertension Patient's BP has been persistently elevated during hospital stay, as high as 189/84 Reports only having HTN while admitted to the hospital Denies HTN at home or during PCP office visits, not on home antihypertensives ?White coat hypertension Will give amlodipine 5 mg daily while in the hospital, discontinue upon discharge Follow up outpatient with PCP for further blood pressure management Asthma Not in acute exacerbation Continue home inhaler Peripheral neuropathy Continue gabapentin GERD Continue PPI Thank you for allowing us to participate in the care of this patient. Signing off at this time. Please re-consult if any acute complaints or issues arise.
[2023-12-26] MEDS: amLODIPine Besylate 5 MG TABLET PO (17:33)
[2023-12-26 19:02] VITALS: BP 152/83; PULSE 80; RESP 18; TEMP 36.6; O2SAT 96
[2023-12-26] MEDS: vancomycin HCL 1,250 MG in 0.9 % Sodium Chloride 250 ML 166.66 MG IV (22:22)
[2023-12-26 23:25] VITALS: RESP 16
[2023-12-27] MEDS: oxyCODONE HCl Immed Release 5 MG TABLET 10 MG PO ×5 (01:10→19:30)
[2023-12-27 01:14] VITALS: BP 170/81; PULSE 82
[2023-12-27 02:00] VITALS: RESP 16
[2023-12-27 03:01] VITALS: BP 159/72; PULSE 67; RESP 18; TEMP 36.8; O2SAT 94
[2023-12-27] MEDS: Omeprazole 40 MG CAPSULE.DR PO (06:13)
[2023-12-27 07:15] VITALS: BP 163/81; PULSE 68; RESP 18; TEMP 36; O2SAT 94
[2023-12-27] MEDS: amLODIPine Besylate 5 MG TABLET PO (08:03)
[2023-12-27] MEDS: Gabapentin 600 MG TABLET PO ×2 (08:04→21:30)
[2023-12-27] MEDS: Nicotine 7 MG PATCH.TD24 TRANSDERMA (08:04)
[2023-12-27 09:30] LABS: Vancomycin Random 10.1 mcg/mL (15-20)
[2023-12-27 09:31] LABS: Creatinine Clr Calc Pharmacy 89.3; Estimated Glomerular Filt Rate > 60
--- NOTE | 2023-12-27 09:39 | HE.PHANOTE ---
RE VANCO DOSING RENAL FUNCTION STABLE WITH SCR 0.7 TODAY. TROUGH IS LOW AT 10.1 BUT LOADING DOSE GIVEN ON 12/23 AND 2ND DOSE GIVEN 30 HOURS BEFORE 3RD DOSE. PROCEEDING CAUTIOUSLY WITH 1500 MG Q12 DOSING BUT WILL CHECK LEVEL AGAIN 12/27 @0800. ACCORDING TO INSIGHT AUC WILL BE 578 AND TROUGH 14.6 WITH THIS REGIMEN BUT HER TROUGH IS SLIGHTLY HIGHER THAN INSIGHT REFLECTED IT WOULD BE SO WE MAY SEE HIGHER NUMBERS THAN THIS AND MAY NEED TO REDUCE THE DOSE AGAIN AFTER APPROPRIATE LEVELS ARE ACHIEVED.
[2023-12-27] MEDS: Enoxaparin Sodium 40 MG/0.4 ML SYRINGE SUBCUT (10:50)
[2023-12-27] MEDS: vancomycin HCL 1,500 MG in 0.9 % Sodium Chloride 500 ML 333.33 MG IV ×2 (10:50→21:33)
--- NOTE | 2023-12-27 11:00 | P.PNOP_ITS ---
Subjective Subjective Date of Service: 12/27/23 Principal diagnosis: open wound right knee Interval history: POD 3 s/p I&D rt knee no overnight events pain controlled wound vac intact Physical Exam Vital Signs: Vital Signs: Last Vital Signs Temp 96.8 F 12/27/23 07:15 Pulse 68 12/27/23 07:15 Resp 18 12/27/23 07:15 BP 163/81 H 12/27/23 07:15 Pulse Ox 94 12/27/23 07:15 O2 Del Method Room Air 12/27/23 07:15 O2 Flow Rate 4 12/24/23 17:03 BMI result Body Mass Index 37.4 Extrem: Other: 4cm x 2 cm open full thickness wound wit h no deep penetration wound vac holding suction with minimal collected fluid. Procedures Date of Service Date of Service: 12/27/23 Progress Note: A&P Assessment and plan (1) Open wound of knee: Status: Acute Assessment and Plan: Wound vac intact Will adjust vanco pr trough dvt prophylaxis oob as tolerated Time Spent With Patient Time: Total time managing care of this patient today ____ minutes. Quality Stroke Does the patient have a stroke diagnosis?: No VTE Prior VTE?: No VTE Risk Level:: Surgical - very high VTE Device Contraindication: N/A - Device Ordered VTE Drug Contraindication: N/A - Med Ordered
[2023-12-27 14:51] VITALS: BP 154/78; PULSE 78; RESP 18; TEMP 36.3; O2SAT 96
[2023-12-27 19:43] VITALS: BP 152/72; PULSE 80; RESP 18; TEMP 36.9; O2SAT 94
[2023-12-27] MEDS: HYDROmorphone HCl 0.5 MG/0.5 ML SYRINGE 0.25 MG IVPUSH (23:22)
[2023-12-28] MEDS: oxyCODONE HCl Immed Release 5 MG TABLET 10 MG PO ×4 (02:39→14:49)
[2023-12-28 03:41] VITALS: BP 145/79; PULSE 85; RESP 16; TEMP 36.3; O2SAT 94
[2023-12-28] MEDS: Omeprazole 40 MG CAPSULE.DR PO (05:39)
[2023-12-28] MEDS: Gabapentin 600 MG TABLET PO (07:11)
[2023-12-28] MEDS: amLODIPine Besylate 5 MG TABLET PO (07:11)
[2023-12-28] MEDS: Nicotine 7 MG PATCH.TD24 TRANSDERMA (07:11)
[2023-12-28 07:35] VITALS: BP 167/90; PULSE 74; RESP 18; TEMP 36.6; O2SAT 95
[2023-12-28 09:48] LABS: Creatinine Clr Calc Pharmacy 93.3; Estimated Glomerular Filt Rate > 60; Vancomycin Random 12.7 mcg/mL (15-20)
[2023-12-28] MEDS: Enoxaparin Sodium 40 MG/0.4 ML SYRINGE SUBCUT (10:48)
[2023-12-28] MEDS: vancomycin HCL 1,500 MG in 0.9 % Sodium Chloride 500 ML 333.33 MG IV (10:48)
[2023-12-28] MEDS: HYDROmorphone HCl 0.5 MG/0.5 ML SYRINGE 0.25 MG IVPUSH (11:10)
--- NOTE | 2023-12-28 12:03 | MHC.CM.PN ---
EMR REVIEWED, PT AWAITING HOME WOUND VAC FROM [facility], ORTHO STILL AWAITING DELIVERY TIME, [facility] TO DO BEDSIDE TEACH W/PT FOR IV ABX AND ID CONSULT ORDERED AND PENDING, CM MET W/PT TO DISCUSS DISPO AND PT ANXIOUS TO DC HOWEVER WILL NEED WOUND VAC AND POSSIBLY A TROUGH PRIOR TO NIGHT VS AM DOSE, CM AWAITING TO HEAR FROM [facility] PHARMACIST. [facility] FOLLOWING FOR SN/PT.
--- NOTE | 2023-12-28 13:19 | P.PNOP_ITS ---
Subjective Subjective Date of Service: 12/28/23 Principal diagnosis: open wound right knee Interval history: POD 4 s/p I&D rt knee no overnight events pain controlled wound vac intact Physical Exam Vital Signs: Vital Signs: Last Vital Signs Temp 97.9 F 12/28/23 07:35 Pulse 74 12/28/23 07:35 Resp 18 12/28/23 07:35 BP 167/90 H 12/28/23 07:35 Pulse Ox 95 12/28/23 07:35 O2 Del Method Room Air 12/28/23 03:41 O2 Flow Rate 4 12/24/23 17:03 BMI result Body Mass Index 37.4 Extrem: Other: 4cm x 2 cm open full thickness down to p atellar tendon- with no deep penetration Procedures Date of Service Date of Service: 12/28/23 Progress Note: A&P Assessment and plan (1) Open wound of knee: Status: Acute Assessment and Plan: Wound vac intact -vanco 1500mg q12 hrs --trough goal 10-20 dvt prophylaxis oob as tolerated Time Spent With Patient Time: Total time managing care of this patient today ____ minutes. Quality Stroke Does the patient have a stroke diagnosis?: No VTE Prior VTE?: No VTE Risk Level:: Surgical - very high VTE Device Contraindication: N/A - Device Ordered VTE Drug Contraindication: N/A - Med Ordered
--- NOTE | 2023-12-28 13:33 | P.DS_ITS ---
DS: Providers Provider Date of Service: 12/28/23 Date of admission: 12/24/23 16:42 Primary care physician: Dirk Zarate MD Consults: 12/26/23 14:01 Consult to Hospitalist Routine Comment: Consulting Provider: Hospitalist Reason For Exam: HTN 12/28/23 11:44 Consult to Infectious Diseases Routine Consulting Provider: [facility] Reason for consultation: TKA wound-picc line placed. abx recommendations needed for d/c home today DS: Diagnosis Discharge Diagnosis (1) Open wound of knee: Status: Acute DS: Summary Hospital Course Hospital Course: The patient underwent a successful Irrigation and debridement right total knee wound dehisence , was transferred to PACU and then to the floor to recover. During their stay, their vitals were stable, afebrile at 12.5/36.5 . POD 1 she was started on Lovenox for DVT ppx, they also received Physical Therapy once twice a day. She also had a 4FR single lumen PASV PICC placed for administration of IV abx for 6 weeks. Physical therapy should include gait training, ROM to tolerance and quad strength. She is WBAT. Prior to discharge, wound vac intact with good suction PICC Line Insertion NPICC Diagnosis: TKA infection Indication: mcfp ABT Pertinent Labs: reviewed Technique: Following informed consent including risks, benefits and alternatives and using sterile technique including cap and mask, sterile gown, glove and drape, the right arm was prepped and draped in the usual sterile fashion of full barrier technique with CHG. Following completion of [place] Protocol the skin and soft tissues were anesthetized with 1% Lidocaine plain. Using ultrasound guidance, right basilic vein access was obtained by Kenney HAWKINS. Over an 0.018 wire through peel-away sheath, a 4fr single lumen PASV PICC line was positioned. Catheter length is 34cm internal length, 0cm external length, for a total trim med length of 34cm. The procedure was performed in rm 272. Tip verification was performed by Juany Esqueda with Erlin 3CG. Tip located in SVC. Ultrasound was used to document vein patency and for needle entry. A formal ultrasound picture and cardiac rhythm strip was recorded. [facility] has released the line for use and it is currently dressed with a StatLock, Tegaderm, and CHG disc. Verification has been performed for blood return and line patency. Arm Circumference: 34cm Equipment: BARD PowerPICC catheter with sherlock 3CG Tip Catheter Type: 4FR single lumen PASV Lot #: [id number] Six weeks IV Vancomycin 1500mg q12 hrs x6 weeks Picc Line / iv abx Orders: * Check Vanco trough levels after 4th dose ( ok to draw in the AM ) * Keep Vanco trough level between 10 and 20 * Flush PICC line with 10 cc of normal saline 3 times a day * Routine discharge flushing with 10 mL of normal saline after blood specimen withdrawal, medication administration or post transfusion flushing Wound Vac Care -continuous pressure 75-125 (depending on patients tolerance ) -change wound vac dressing twice a week Time Attestation Discharge Coordination Time (in mins): 30 Quality: Safe Use of Opioids Does Pt have an Active Cancer Diagnosis on the Problem List?: No Quality: Stroke Does the patient have a stroke diagnosis?: No Physical Exam Vital Signs: Vital Signs: Last Vital Signs Temp 97.9 F 12/28/23 07:35 Pulse 74 12/28/23 07:35 Resp 18 12/28/23 07:35 BP 167/90 H 12/28/23 07:35 Pulse Ox 95 12/28/23 07:35 O2 Del Method Room Air 12/28/23 03:41 O2 Flow Rate 4 12/24/23 17:03 BMI result Body Mass Index 37.4 DS: Data Data Completed and Pending Labs on day of discharge: Laboratory Results - last 24 hr 12/28/23 09:22 Creatinine 0.67 Estim Creat Clear Calc 93.3 Estimated GFR > 60 Random Vancomycin 12.7 L Discharge Plan Discharge Anticipated Discharge Date/Time: 12/28/23 15:05 Patient Disposition: Home Health Service Discharge Diagnosis: s/p I&D right knee Referrals: [facility] [Other] - 1 Day ([facility] WILL DELIVER YOUR IV ANTIBIOTICS AND SUPPLIES, FEEL FREE TO CALL [phone] WITH ANY QUESTIONS OR OFF HOURS PHONE SUPPORT (PLEASE FOLLOW PROPTS). ) [facility] [Outside] - 1 Day ([facility]) Jasmine Arguello PA-C [Physician Service Desk Lead] - 1 Week (01/07/24 11:30 [facility],Ta-Casandra, PA-C) Discharge Medications: New oxycodone 10 mg tablet 10 mg PO Q4H PRN (Reason: Pain, Moderate(Pain Scale 4-6)) 7 Days Qty: 42 0RF Rx Instructions: Partial Fill upon patient request. nicotine 7 mg/24 hr Patch 24 Hour 7 mg transdermal DAILY 30 Days Qty: 30 0RF vancomycin 1.5 gram recon soln 1.5 g IV Q12H Continued (DME) walker Misc See Rx Instructions .MEDSUPPLY Qty: 1 0RF Rx Instructions: Folding Front wheeled walker enoxaparin 40 mg/0.4 mL Syringe 40 mg subcut Q24H 42 Days Qty: 16.8 1RF albuterol sulfate [Ventolin HFA] 90 mcg/actuation HFA aerosol inhaler 2 puff inhalation Q4H PRN (Reason: wheezing) gabapentin 600 mg tablet 600 mg PO BID acetaminophen 325 mg Tablet 650 mg PO Q6H PRN (Reason: Pain, Mild (Pain Scale 1-3), fever or headache) 30 Days Qty: 240 0RF omeprazole 40 mg capsule,delayed release(DR/EC) 40 mg PO DAILY@0630 Discharge Orders: Discharge Order (Routine); Ordered 12/28/23 Ordered By: Jasmine Arguello Diet: Regular diet Activity on Discharge: Use cane or walker Stand Alone Forms: Patient Portal Discharge page Print Language: Czech Care Plan Goals: Restore function of joint Health Concerns: none Plan of Treatment: Physical Therapy Pain management DVT prophylaxis Assessment: Physical Therapy for Total knee arthroplasty: WBAT, gait training, ROM 0-12, quad strength * Limit stair climbing * No showering, no tub bath-keep dressing clean, dry and intact * No driving x6 weeks * Continue lovenox x 6 weeks
[2023-12-28 13:59] VITALS: BP 167/90; PULSE 74; O2SAT 95
--- NOTE | 2023-12-28 14:50 | PM.EVENT ---
Event Note Date of Service: 12/28/23 Event Note: Pt agitated about prolonged discharge and issues with getting equipment to go home. she is requesting something for anxiety. she does not normally take anxiety medications. she is not going to be driving home after discharge. will give 1 dose hydroxyzine 25mg PO now. Time Spent With Patient Time: Total time managing care of this patient today 5 minutes.
--- NOTE | 2023-12-28 14:58 | W.MHC.F2F ---
Service Date Service Date: 12/28/23 Encounter Date of encounter: 12/28/23 Reasons for Services Signs and symptoms assessed: Right knee surgical wound Wound vac intact Reason for penitentiary: wound care (Wound Vac Care -continuous pressure 75-125 (depending on patients tolerance ) -change wound vac dressing twice a week ), central line care (picc line care), medication management and medication treatment Reason for physical therapy: home safety and mobility, therapeutic exercises, restore joint function, gait/transfer training, ADL training and energy conservation Reason for occupational therapy: home safety and mobility, therapeutic exercises, restore joint function, gait/transfer training, ADL training and energy conservation Homebound: Leaving the home is medically contraindicated at this time without the asist of a device and/or another person due th the listed conditions above and below. Reason homebound: unsteady gait / fall risk, pain with ambulation, poor balance / fall risk and unable to drive Homebound supporting statement: Pt. is considered home bound due to recent surgery. Unable to drive, poor balance, poor gait mechanics. Certification: Based on the above findings, I certify that this patient is confined to the home and needs intermittent penitentiary care, physical therapy and/or speech therapy, or continues to need occupational therapy. The patient is under my care, and I have initiated the establishment of the plan of care. The patient will be followed by a physician who will periodically review the plan of care. Time Spent With Patient Time: Total time managing care of this patient today ____ minutes.
[2023-12-28] MEDS: hydrOXYzine HCL 25 MG TABLET PO (15:14)
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
[2023-12-28 15:48] VITALS: BP 146/69; PULSE 84; RESP 20; TEMP 36.6; O2SAT 99
--- NOTE | 2023-12-28 18:11 | PC.NURSE ---
Pt connected to home wound vac. Discharge instructions reviewed with pt. Pt verbalized understanding. Prescription for oxycodone not on pt chart or given to pt. Pt called her [facility] pharmacy and medication not submitted. Tigertext to Dr Thomason (business continuity global director). unable to submit script until morning. Pt aware and stated I'm going home with or without it, I have tylenol at home MD given pt information and pharmacy and will call script in in the morning. Pt discharged home
--- NOTE | 2024-01-28 15:13 | P.CDIM_ITS ---
PROVIDER RESPONSE TEXT: To clarify, the appropriate diagnosis supported by the clinical indicators: skin QUERY TEXT: PHYSICIAN'S DOCUMENTATION REQUEST Date of Query: 01/20/2024 12:20 PM EST Patient Name: Farrah Glover Admit Date: 12/24/2023 Dear Corky Richmond MD, A review of the medical record indicates additional documentation may be needed. Please review below and update the documentation accordingly. Clinical Indicators: Per Operative Note 12/25/23: Date of Service: 12/24/23 Pre-op diagnosis: Right knee wound infection Post-op diagnosis: same Procedure: Irrigation and debridement right TKA incision Wound vac placement removed necrotic tissue, no deep penetration Could you provide further clarification regarding the depth of the debridement? skin subcutaneous tissue and fascia muscle tendon bone Other (explain) Clinically unable to determine (explain) Thank you, Cheyenne Prince RN Use of terms such as suspected, likely, concern for, or probable (associated with a specific diagnosi s that is being evaluated, monitored, or treated as if it exists) are acceptable and can be coded in the inpatient se tting, when documented at the time of discharge. Please use your independent medical judgment in providing your response. THIS QUERY IS PART OF THE PERMANENT MEDICAL RECORD
== END 2023-12-28 17:30 | disposition home health service (06) | DRG 721 ==
LOC: HO.SSSA 17:03 → HO.S3 17:08
PROVIDERS: Physician Assistant; Admitting Provider Orthopaedic Surgery; PCP Internal Medicine; Visit Provider Orthopaedic Surgery
PROC: 0HBKXZZ Excision of Right Lower Leg Skin, External Approach (ICD-10-PCS; principal; 2023-12-24 15:10)
DX: T81.41XA Infection following a procedure, superficial incisional surgical site, initial encounter (principal); I96 Gangrene, not elsewhere classified; F17.210 Nicotine dependence, cigarettes, uncomplicated; R03.0 Elevated blood-pressure reading, without diagnosis of hypertension; Y83.8 Other surgical procedures as the cause of abnormal reaction of the patient, or of later complication, without mention of misadventure at the time of the procedure; G62.9 Polyneuropathy, unspecified; J45.20 Mild intermittent asthma, uncomplicated; G89.18 Other acute postprocedural pain; Z71.6 Tobacco abuse counseling; Z79.899 Other long term (current) drug therapy
CPT/HCPCS: 36415; 36573; 80048; 80202; 82565; 85025; 97110; 97162; 99212; C1751; J1100; J1171; J1650; J2003; J2250; J2704; J3010; J3370; J3371; J7120

== ENCOUNTER → 2023-12-24 16:42 | Outpatient (BNV) | payer OTHER, SELFPAY | PROVIDERS: Admitting Provider Orthopaedic Surgery; PCP Internal Medicine; Visit Provider Student in an Organized Health Care Education/Training Program | DX: I10 Essential (primary) hypertension (principal); S81.001A Unspecified open wound, right knee, initial encounter; Z96.651 Presence of right artificial knee joint | CPT/HCPCS: 99222 ==

== ENCOUNTER 2023-12-30 10:54 | Outpatient (REF) | payer OTHER, SELFPAY ==
[2023-12-30 11:35] LABS: Vancomycin Trough 14.7 mcg/mL (10.0-20.0)
== END 2023-12-30 10:55 | disposition home or self-care (01) ==
LOC: HO.HVNA 10:54
PROVIDERS: Visit Provider Orthopaedic Surgery
DX: T84.53XA Infection and inflammatory reaction due to internal right knee prosthesis, initial encounter (principal)
CPT/HCPCS: 36415; 80202

== ENCOUNTER 2024-01-04 11:11 | Outpatient (AMB) | payer OTHER, SELFPAY ==
--- NOTE | 2024-01-04 11:13 | A.OFFVIS_ITS ---
Intake Visit Reasons: PO RT knee I&D 12/24/23 NE Intake Note: Farrah a 58 year old female who presents today for a post operative wound check of right knee I&D on 12/24/23. Allergies No Known Allergies Allergy (Verified 01/04/24 11:21) Medication List - Last Reconciled 01/04/24 by Jasmine Arguello PA-C acetaminophen 650 mg (2 x 325 mg) PO Q6H PRN 30 days albuterol sulfate 90 mcg/actuation (Ventolin HFA) 2 puffs inhalation Q4H PRN enoxaparin 40 mg (0.4 mL) subcut Q24H 42 days gabapentin 600 mg PO BID nicotine 7 mg transdermal DAILY 30 days omeprazole 40 mg PO DAILY@0630 oxycodone 10 mg PO Q4H PRN 7 days vancomycin 1.5 grams IV Q12H walker Folding Front wheeled walker HPI HPI PO RT knee I&D 12/24/23 NE: Details: 58 yo female returns to the office today f/u Rt knee TKA I&D 12/24/23 with NE. Wound vac is intact. Continues with PIcc and vanco. Most revent rough 14.7 . She is being seen by the [facility] 3x a week. [facility] Medical History Opiate dependence E coli bacteremia Smokers' cough White coat syndrome with hypertension GERD (gastroesophageal reflux disease) Bilateral primary osteoarthritis of knee Eczema Surgical History S/P placement of nerve stimulator History of incision and drainage Hx of varicose vein ligation Hx of tubal ligation History of surgery Hx of arthroscopic knee surgery Hx of hernia repair History of cholecystectomy Social History Household Members: Spouse and Family Household Members Other:: 2 granddaughters Housing: Apartment Are you a primary career based intervention coordinator to a significant other at home: Yes Do you presently have visiting nurse or other home services: No Alcohol intake: never Patient Tobacco Use Status: Current everyday Tobacco user Tobacco use type: Cigarette Cigarette Packs Per Day: 0.5 Cigarettes Per Day: 10 Years Smoked: 40 e-Cigarette/Vaping Use: Never Used Second Hand Smoke Exposure: Yes (spouse) service: No Current occupational status: disabled Current occupation: rt hand Review of Systems Const All systems reviewed & are unremarkable except as noted in HPI and below Physical Exam Extrem Other: Wound measuring 2x3cm with pink health tissue along the proximal third of the wound, distal third has exposed, healing patellar tendon. No surrounding erythema or swelling. Assessment & Plan Assessment & Plan (1) Open wound of knee: Code(s): S81.009A - Unspecified open wound, unspecified knee, initial encounter Category: Medical (2) Status post right knee replacement: Code(s): Z96.651 - Presence of right artificial knee joint Category: Surgical Plan Dr Richmond was available to see the patient with me today. The decision was made to d/c the wound vac today and transition to wet to dry dressing changes which was applied today and I taught her how to perform this in the office today. The patient will apply a 2x2 guaze to the distal third aspect of the wound and apply a telfa over the proximal aspect to cover the pink tissue. 4x4 gauze applied over the 2x2 and an jacquie wrap applied. She will change this dressing bid and return to see us in our office on . Coding Level of Care Code Global (99028) Diagnoses Open wound of knee S81.009A Status post right knee replacement Z96.651
== END 2024-01-04 11:57 | disposition home or self-care (01) ==
PROVIDERS: PCP Internal Medicine; Visit Provider Physician Assistant
DX: S81.009A Unspecified open wound, unspecified knee, initial encounter (principal); Z96.651 Presence of right artificial knee joint
CPT/HCPCS: 99024

== ENCOUNTER → 2024-01-04 11:11 | Outpatient (BNVA) | payer OTHER, SELFPAY | PROVIDERS: PCP Internal Medicine; Visit Provider Physician Assistant | DX: S81.001A Unspecified open wound, right knee, initial encounter (principal); X58.XXXA Exposure to other specified factors, initial encounter; Y93.9 Activity, unspecified; Y92.9 Unspecified place or not applicable; Y99.9 Unspecified external cause status; Z96.651 Presence of right artificial knee joint; Z79.891 Long term (current) use of opiate analgesic | CPT/HCPCS: 99212 ==

== ENCOUNTER 2024-01-07 11:39 | Outpatient (REF) | payer OTHER, SELFPAY ==
[2024-01-07 12:19] LABS: Vancomycin Trough 13.9 mcg/mL (10.0-20.0)
== END 2024-01-07 11:40 | disposition home or self-care (01) ==
LOC: HO.HVNA 11:39
PROVIDERS: Visit Provider Orthopaedic Surgery
DX: T84.53XA Infection and inflammatory reaction due to internal right knee prosthesis, initial encounter (principal); Z79.2 Long term (current) use of antibiotics
CPT/HCPCS: 36415; 80202

== ENCOUNTER 2024-01-11 11:00 | Outpatient (AMB) | payer OTHER, SELFPAY ==
--- NOTE | 2024-01-11 11:13 | A.OFFVIS_ITS ---
Intake Visit Reasons: PO RT knee I&D 12/24/23 NE Intake Note: Farrah a 58 year old female who presents today for a wound check of right knee I&D on 12/24/23 s/p RT TKA 11/24/23 NE. Patient reports that she would like to discuss dressing changes with VNA. Allergies No Known Allergies Allergy (Verified 01/11/24 11:18) Medication List - Last Reconciled 01/11/24 by Jasmine Arguello PA-C acetaminophen 650 mg (2 x 325 mg) PO Q6H PRN 30 days albuterol sulfate 90 mcg/actuation (Ventolin HFA) 2 puffs inhalation Q4H PRN enoxaparin 40 mg (0.4 mL) subcut Q24H 42 days gabapentin 600 mg PO BID nicotine 7 mg transdermal DAILY 30 days omeprazole 40 mg PO DAILY@0630 oxycodone 10 mg PO Q4H PRN 7 days vancomycin 1.5 grams IV Q12H walker Folding Front wheeled walker HPI HPI PO RT knee I&D 12/24/23 NE: Details: 58-year-old female returns to the office today for a right knee wound check status post right total knee 11/24/[address] Richmond. She states the visiting nurses have been doing wet to dries throughout the week. She is doing well with physical therapy. [facility] Medical History Opiate dependence E coli bacteremia Smokers' cough White coat syndrome with hypertension GERD (gastroesophageal reflux disease) Bilateral primary osteoarthritis of knee Eczema Surgical History S/P placement of nerve stimulator History of incision and drainage Hx of varicose vein ligation Hx of tubal ligation History of surgery Hx of arthroscopic knee surgery Hx of hernia repair History of cholecystectomy Social History Household Members: Spouse and Family Household Members Other:: 2 granddaughters Housing: Apartment Are you a primary care mgr to a significant other at home: Yes Do you presently have visiting nurse or other home services: No Alcohol intake: never Patient Tobacco Use Status: Current everyday Tobacco user Tobacco use type: Cigarette Cigarette Packs Per Day: 0.5 Cigarettes Per Day: 10 Years Smoked: 40 e-Cigarette/Vaping Use: Never Used Second Hand Smoke Exposure: Yes (spouse) service: No Current occupational status: disabled Current occupation: rt hand Review of Systems Const All systems reviewed & are unremarkable except as noted in HPI and below Physical Exam Extrem Other: Wound measuring 2x3cm with pink health tissue along the proximal third of the wound, distal third has exposed, healing patellar tendon. No surrounding erythema or swelling. Range of motion 0-120 degrees Assessment & Plan Assessment & Plan (1) Status post right knee replacement: Code(s): Z96.651 - Presence of right artificial knee joint Category: Surgical (2) Open wound of knee: Code(s): S81.009A - Unspecified open wound, unspecified knee, initial encounter Category: Medical Plan Dr. Richmond was available to see the patient with me today. I had a telephone conversation with our care clinic about a cream that we could use to help facilitate healing. The patient was given a collagen Hydrogel dressing ointment that she will apply once a day. She will cover once applied. Reapply daily. Discontinue which to dry dressings. She will see me back in 1 week with a wound check. Coding Level of Care Code Global (46519) Diagnoses Status post right knee replacement Z96.651 Open wound of knee S81.009A
== END 2024-01-11 12:31 | disposition home or self-care (01) ==
PROVIDERS: PCP Internal Medicine; Visit Provider Physician Assistant
DX: Z96.651 Presence of right artificial knee joint (principal); S81.009A Unspecified open wound, unspecified knee, initial encounter
CPT/HCPCS: 99024

== ENCOUNTER → 2024-01-11 11:00 | Outpatient (BNVA) | payer OTHER, SELFPAY | PROVIDERS: PCP Internal Medicine; Visit Provider Physician Assistant | DX: S81.001D Unspecified open wound, right knee, subsequent encounter (principal); X58.XXXD Exposure to other specified factors, subsequent encounter; Z47.1 Aftercare following joint replacement surgery; Z96.651 Presence of right artificial knee joint | CPT/HCPCS: 99212 ==

== ENCOUNTER 2024-01-13 13:51 | Outpatient (REF) | payer OTHER, SELFPAY ==
[2024-01-13 14:37] LABS: Vancomycin Trough 3.9 mcg/mL (10.0-20.0)
== END 2024-01-13 13:52 | disposition home or self-care (01) ==
LOC: HO.HVNA 13:51
PROVIDERS: Visit Provider Orthopaedic Surgery
DX: T84.53XA Infection and inflammatory reaction due to internal right knee prosthesis, initial encounter (principal)
CPT/HCPCS: 36415; 80202

== ENCOUNTER 2024-01-19 09:54 | Outpatient (AMB) | payer OTHER, SELFPAY ==
--- NOTE | 2024-01-19 09:58 | MHC.OFFVIS ---
Intake Visit Reasons: PO RT knee I&D 12/24/23 NE wound check Intake Note: Farrah a 58 year old female who presents for a post operative wound check of right knee I&D 12/24/23, s/p right TKA 11/24/23 NE. Patient reports on of last week her PICC line had became clogged, VNA nurse attempted to flush however was unable to pull any blood and was not to take medication. She is questioning when PICC line will be removed. Allergies No Known Allergies Allergy (Verified 01/19/24 10:03) HPI HPI PO RT knee I&D 12/24/23 NE wound check: Details: 58-year-old female who returns to the office today for post-op right knee I&D, 12/24/23 s/p right TKA, 11/24/[address] Richmond. She presents today for a wound check. [facility] Medical History Opiate dependence E coli bacteremia Smokers' cough White coat syndrome with hypertension GERD (gastroesophageal reflux disease) Bilateral primary osteoarthritis of knee Eczema Surgical History S/P placement of nerve stimulator History of incision and drainage Hx of varicose vein ligation Hx of tubal ligation History of surgery Hx of arthroscopic knee surgery Hx of hernia repair History of cholecystectomy Social History Household Members: Spouse and Family Household Members Other:: 2 granddaughters Housing: Apartment Are you a primary acute care physician to a significant other at home: Yes Do you presently have visiting nurse or other home services: No Alcohol intake: never Patient Tobacco Use Status: Current everyday Tobacco user Tobacco use type: Cigarette Cigarette Packs Per Day: 0.5 Cigarettes Per Day: 10 Years Smoked: 40 e-Cigarette/Vaping Use: Never Used Second Hand Smoke Exposure: Yes (spouse) service: No Current occupational status: disabled Current occupation: rt hand Review of Systems Const All systems reviewed & are unremarkable except as noted in HPI and below Physical Exam Extrem Other: Right knee pink healthy tissue along the proximal third of the wound, distal third has exposed, healing patellar tendon. No surrounding erythema or swelling. Range of motion 0-120 degrees Assessment & Plan Assessment & Plan (1) Status post right knee replacement: Code(s): Z96.651 - Presence of right artificial knee joint Category: Surgical (2) Open wound of knee: Code(s): S81.009A - Unspecified open wound, unspecified knee, initial encounter Category: Medical Plan Dr. Richmodn was available to see the patient with me today. We will continue with the cream that she uses once daily as this has been providing her good tissue quality and healing. She will continue with home exercises from physical therapy and see me back in 1 week for a wound check, sooner if needed. Medications: Changed From oxycodone Partial Fill upon patient request. 10 mg PO Q4-6H 7 days PRN 42 tabs 0RF Pain, Moderate(Pain Scale 4-6) To oxycodone Partial Fill upon patient request. 10 mg PO Q6H PRN 28 tabs 0RF Pain, Moderate(Pain Scale 4-6) 7 days Patient Instructions: Scribed for Jasmine Arguello PA-C, by Vernon Villareal biomedical engineer, on 01/19/2024 at 10:00 AM EST.? I, Jasmine Arguello PA-C, have personally reviewed and agree with the information entered by the scribe. Coding Level of Care Code Global (71304) Diagnoses Status post right knee replacement Z96.651 Open wound of knee S81.009A
== END 2024-01-19 10:41 | disposition home or self-care (01) ==
PROVIDERS: PCP Internal Medicine; Visit Provider Physician Assistant
DX: Z96.651 Presence of right artificial knee joint (principal); S81.009A Unspecified open wound, unspecified knee, initial encounter
CPT/HCPCS: 99024

== ENCOUNTER → 2024-01-19 09:54 | Outpatient (BNVA) | payer OTHER, SELFPAY | PROVIDERS: PCP Internal Medicine; Visit Provider Physician Assistant | DX: S81.001D Unspecified open wound, right knee, subsequent encounter (principal); T81.89XD Other complications of procedures, not elsewhere classified, subsequent encounter; X58.XXXD Exposure to other specified factors, subsequent encounter; Z96.651 Presence of right artificial knee joint; Z98.890 Other specified postprocedural states | CPT/HCPCS: 99212 ==

== ENCOUNTER 2024-01-20 17:27 | Outpatient (REF) | payer OTHER, SELFPAY ==
[2024-01-20 18:04] LABS: Estimated Glomerular Filt Rate > 60
[2024-01-20 18:10] LABS: Vancomycin Trough 11.7 mcg/mL (10.0-20.0)
== END 2024-01-20 17:28 | disposition home or self-care (01) ==
LOC: HO.LNP 17:27
PROVIDERS: Visit Provider Orthopaedic Surgery
DX: T84.53XA Infection and inflammatory reaction due to internal right knee prosthesis, initial encounter (principal)
CPT/HCPCS: 80202; 82565

== ENCOUNTER 2024-01-27 09:35 | Outpatient (REF) | payer OTHER, SELFPAY ==
[2024-01-27 10:11] LABS: Vancomycin Trough 12.2 mcg/mL (10.0-20.0)
[2024-01-27 10:12] LABS: Estimated Glomerular Filt Rate > 60
== END 2024-01-27 09:36 | disposition home or self-care (01) ==
LOC: HO.HVNA 09:35
PROVIDERS: Visit Provider Orthopaedic Surgery
DX: T84.53XA Infection and inflammatory reaction due to internal right knee prosthesis, initial encounter (principal)
CPT/HCPCS: 36415; 80202; 82565

== ENCOUNTER 2024-01-29 10:42 | Outpatient (AMB) | payer OTHER, SELFPAY ==
--- NOTE | 2024-01-29 11:05 | A.OFFVIS_ITS ---
Intake Visit Reasons: PO RT knee I&D 12/24/23 NE wound check Intake Note: Farrah a 58 year old female who presents for a post operative wound check of right knee I&D 12/24/23, s/p right TKA 11/24/23 NE. Patient reports her wound is healing well, states her current pain level is 4 out of 10. States lateral side of her leg is numb. She was admitted to [facility] ER over the weekend to her PICC line being clogged. Allergies No Known Allergies Allergy (Verified 01/29/24 11:06) HPI HPI PO RT knee I&D 12/24/23 NE wound check: Details: 58-year-old female who returns to the office today for post-op right knee I&D, 12/24/23, s/p right TKA, 11/24/[address] Richmond. She presents today for a wound check. She reports she was admitted to [facility] ER over the weekend as her PICC line was clogged. She states her wound is healing well and she continues to have pain with a current pain level of 4 on the scale of 0-10. She also reports she has numbness at the lateral aspect of her leg. She is doing well otherwise and has no other concerns today. [facility] Medical History Opiate dependence E coli bacteremia Smokers' cough White coat syndrome with hypertension GERD (gastroesophageal reflux disease) Bilateral primary osteoarthritis of knee Eczema Surgical History S/P placement of nerve stimulator History of incision and drainage Hx of varicose vein ligation Hx of tubal ligation History of surgery Hx of arthroscopic knee surgery Hx of hernia repair History of cholecystectomy Social History Household Members: Spouse and Family Household Members Other:: 2 granddaughters Housing: Apartment Are you a primary primary care pediatrician to a significant other at home: Yes Do you presently have visiting nurse or other home services: No Alcohol intake: never Patient Tobacco Use Status: Current everyday Tobacco user Tobacco use type: Cigarette Cigarette Packs Per Day: 0.5 Cigarettes Per Day: 10 Years Smoked: 40 e-Cigarette/Vaping Use: Never Used Second Hand Smoke Exposure: Yes (spouse) service: No Current occupational status: disabled Current occupation: rt hand Review of Systems Const All systems reviewed & are unremarkable except as noted in HPI and below Physical Exam Extrem Other: Right knee pink healthy tissue along the proximal third of the wound, distal third has exposed, healing patellar tendon. No surrounding erythema or swelling. Range of motion 0-120 degrees Assessment & Plan Assessment & Plan (1) Status post right knee replacement: Code(s): Z96.651 - Presence of right artificial knee joint Category: Surgical (2) Open wound of knee: Code(s): S81.009A - Unspecified open wound, unspecified knee, initial encounter Category: Medical Plan She will discontinue the cream as this is keeping the area too moist. She will keep it clean and dry. Her PICC line will be removed on Thursday by the infusion company. A prescription of Bactrim was sent pharmacy today. She will see us back in 1 month, sooner if needed. Medications: New sulfamethoxazole-trimethoprim 800-160 mg (Bactrim DS) 1 tab PO BID 84 tabs 0RF suture abscess 42 days Patient Instructions: Scribed for Jasmine Arguello PA-C, by Vernon Villareal dental assistant medical assistant, on 01/29/2024 at 10:45 AM EST.? I, Jasmine Arguello PA-C, have personally reviewed and agree with the information entered by the scribe. Coding Level of Care Code Global (63449) Diagnoses Status post right knee replacement Z96.651 Open wound of knee S81.009A
== END 2024-01-29 11:35 | disposition home or self-care (01) ==
PROVIDERS: PCP Internal Medicine; Visit Provider Physician Assistant
DX: Z96.651 Presence of right artificial knee joint (principal); S81.009A Unspecified open wound, unspecified knee, initial encounter
CPT/HCPCS: 99024

== ENCOUNTER → 2024-01-29 10:42 | Outpatient (BNVA) | payer OTHER, SELFPAY | PROVIDERS: PCP Internal Medicine; Visit Provider Physician Assistant | DX: S81.001D Unspecified open wound, right knee, subsequent encounter (principal); X58.XXXD Exposure to other specified factors, subsequent encounter; Z96.651 Presence of right artificial knee joint; Z98.890 Other specified postprocedural states | CPT/HCPCS: 99212 ==

== ENCOUNTER 2024-03-04 11:27 | Outpatient (AMB) | payer OTHER, SELFPAY ==
--- NOTE | 2024-03-04 13:01 | MHC.OFFVIS ---
Intake Visit Reasons: PO-RT knee I&D 12/24/23, s/p RT TKA 11/24/23 NE Allergies No Known Allergies Allergy (Verified 01/29/24 11:06) HPI HPI PO-RT knee I&D 12/24/23, s/p RT TKA 11/24/23 NE: Details: 58-year-old female who returns to the office today status post right knee arthroplasty with Dr. Richmond on 11/23. She had an I&D done due to a wound dehiscence on 12/23. Today she presents with the wound mostly healed however there is a significant amount of granulation tissue over the wound. [facility] Medical History Opiate dependence E coli bacteremia Smokers' cough White coat syndrome with hypertension GERD (gastroesophageal reflux disease) Bilateral primary osteoarthritis of knee Eczema Surgical History S/P placement of nerve stimulator History of incision and drainage Hx of varicose vein ligation Hx of tubal ligation History of surgery Hx of arthroscopic knee surgery Hx of hernia repair History of cholecystectomy Social History Household Members: Spouse and Family Household Members Other:: 2 granddaughters Housing: Apartment Are you a primary lawn care technician to a significant other at home: Yes Do you presently have visiting nurse or other home services: No Alcohol intake: never Patient Tobacco Use Status: Current everyday Tobacco user Tobacco use type: Cigarette Cigarette Packs Per Day: 0.5 Cigarettes Per Day: 10 Years Smoked: 40 e-Cigarette/Vaping Use: Never Used Second Hand Smoke Exposure: Yes (spouse) service: No Current occupational status: disabled Current occupation: rt hand Review of Systems Const All systems reviewed & are unremarkable except as noted in HPI and below Physical Exam Extrem Other: Right knee granulation tissue present along the inferior portion of the incision. No surrounding erythema or swelling. Range of motion 0-120 degrees Assessment & Plan Assessment & Plan (1) Status post right knee replacement: Code(s): Z96.651 - Presence of right artificial knee joint Category: Surgical (2) Open wound of knee: Code(s): S81.009A - Unspecified open wound, unspecified knee, initial encounter Category: Medical Plan Dr. Richmond was available to see the patient with me today. She will keep the area covered to avoid irritation. A referral for the wound care center has been placed so they can further evaluate this area and provide recommendations for further healing. She will see us back in 6 weeks for routine follow-up sooner if needed. Orders: Referrals Wound Care Referral S81.009A - Unspecified open wound, unspecified knee, initial encounter, Z96.651 - Presence of right artificial knee joint Coding Level of Care Code Est Pt Level 3 (28119) Complex EM visit Add On G2211 Diagnoses Status post right knee replacement Z96.651 Open wound of knee S81.009A
== END 2024-03-04 11:45 | disposition home or self-care (01) ==
PROVIDERS: PCP Internal Medicine; Visit Provider Physician Assistant
DX: Z47.1 Aftercare following joint replacement surgery (principal); Z96.651 Presence of right artificial knee joint; S81.001A Unspecified open wound, right knee, initial encounter
CPT/HCPCS: 99213; G2211

== ENCOUNTER → 2024-03-04 11:27 | Outpatient (BNVA) | payer OTHER, SELFPAY | PROVIDERS: PCP Internal Medicine; Visit Provider Physician Assistant | DX: Z47.89 Encounter for other orthopedic aftercare (principal); S81.009D Unspecified open wound, unspecified knee, subsequent encounter; T81.30XD Disruption of wound, unspecified, subsequent encounter; Z96.651 Presence of right artificial knee joint | CPT/HCPCS: 99212 ==

== ENCOUNTER 2024-04-22 07:29 | Outpatient (REF) | payer OTHER, SELFPAY | END 2024-04-22 07:30 | disposition home or self-care (01) | LOC: HO.HOSX 07:29 | PROVIDERS: Visit Provider Physician Assistant | DX: Z13.89 Encounter for screening for other disorder (principal) ==

== ENCOUNTER 2024-05-13 08:37 | Outpatient (REF) | payer OTHER, SELFPAY | END 2024-05-13 08:38 | disposition home or self-care (01) | LOC: HO.HOSX 08:37 | PROVIDERS: Visit Provider Physician Assistant | DX: Z13.89 Encounter for screening for other disorder (principal) ==

== ENCOUNTER 2024-05-18 08:10 | Outpatient (REF) | payer OTHER, SELFPAY | END 2024-05-18 08:11 | disposition home or self-care (01) | LOC: HO.HOSX 08:10 | PROVIDERS: Visit Provider Physician Assistant | DX: Z13.89 Encounter for screening for other disorder (principal) ==

== ENCOUNTER 2024-05-20 08:31 | Outpatient (REF) | payer OTHER, SELFPAY | END 2024-05-20 08:32 | disposition home or self-care (01) | LOC: HO.HOSX 08:31 | PROVIDERS: Visit Provider Physician Assistant | DX: Z13.89 Encounter for screening for other disorder (principal) ==

== ENCOUNTER 2024-08-22 07:12 | Outpatient (REF) | payer OTHER, SELFPAY ==
--- NOTE | ~2024-08-22 | XR_ITS ---
Exam: Three-view x-ray bilateral knees. Technique: AP standing, lateral, and sunrise view lower extremity joint, bilateral History of knee pain Prior: November 24, 2023 right knee and November 19, 2023 left knee FINDINGS: RIGHT KNEE: Again noted are changes from total knee arthroplasty. Hardware is aligned without change in positions. There is no abnormal appearance at the bone metal or cement interfaces. LEFT KNEE: Again seen is severe narrowing of the lateral compartment with varus deformity. There is subchondral sclerosis and osteophytes noted in the lateral compartment. Compartment osteophytes are present. XR/XR Knee Fabrizio 3V Impression: Right knee: Total knee arthroplasty on the right, stable. Left knee: Severe osteoarthritis with valgus deformity. Electronically signed by: Justyn Ross MD 08/22/2024 03:47 PM EDT
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
== END 2024-08-22 07:13 | disposition home or self-care (01) ==
LOC: HO.HOSX 07:12
PROVIDERS: Visit Provider Physician Assistant
DX: M17.12 Unilateral primary osteoarthritis, left knee (principal); M21.062 Valgus deformity, not elsewhere classified, left knee; M25.561 Pain in right knee; Z96.651 Presence of right artificial knee joint
CPT/HCPCS: 20610; 73562; 99212; J1010; J2003

== ENCOUNTER 2024-08-22 14:52 | Outpatient (AMB) | payer OTHER, SELFPAY ==
--- NOTE | 2024-08-22 15:03 | A.OFFVIS_ITS ---
Intake Visit Reasons: ov-Left knee swollen/popping noise Intake Note: Farrah is a 59 year old female who presents today for a follow up of left knee OA. Patient reports locking in her knee that has caused her to fall twice. She also complains of swelling and popping noises. She has constant pain in her knee. Finds no relief with Tylenol, gabapentin or diclofenac topical cream. Allergies No Known Allergies Allergy (Verified 08/22/24 15:08) Medication List - Last Reconciled 08/22/24 by Jasmine Arguello PA-C acetaminophen 650 mg (2 x 325 mg) PO Q6H PRN 30 days albuterol sulfate 90 mcg/actuation (Ventolin HFA) 2 puffs inhalation Q4H PRN gabapentin 600 mg PO BID omeprazole 40 mg PO DAILY@0630 vancomycin 1.5 grams IV Q12H walker Folding Front wheeled walker HPI HPI ov-Left knee swollen/popping noise: Details: 59 yo female presents to the office today for ongoing left knee pain. She is sp RT TKA 11/24/23 which was complicated by wound breakdown. This has since healed without further complications. She states the left knee is unstable and in constant pain. He has had multiple injections and even tried knee bracing without significant relief. She continues to smoke states she smokes about a pack every couple of days. [facility] Medical History Opiate dependence E coli bacteremia Smokers' cough White coat syndrome with hypertension GERD (gastroesophageal reflux disease) Bilateral primary osteoarthritis of knee Eczema Surgical History S/P placement of nerve stimulator History of incision and drainage Hx of varicose vein ligation Hx of tubal ligation History of surgery Hx of arthroscopic knee surgery Hx of hernia repair History of cholecystectomy Social History Household Members: Spouse and Family Household Members Other:: 2 granddaughters Housing: Apartment Are you a primary manager urgent care to a significant other at home: Yes Do you presently have visiting nurse or other home services: No Alcohol intake: never Patient Tobacco Use Status: Current everyday Tobacco user Tobacco use type: Cigarette Cigarette Packs Per Day: 0.5 Cigarettes Per Day: 10 Years Smoked: 40 e-Cigarette/Vaping Use: Never Used Second Hand Smoke Exposure: Yes (spouse) service: No Current occupational status: disabled Current occupation: rt hand Review of Systems Const All systems reviewed & are unremarkable except as noted in HPI and below Physical Exam Extrem Other: Right knee incision is well healed. She has full range of motion. Neurovascularly intact. Left knee skin intact with severe valgus deformity. Office Procedures AMB Joint Injection/Aspiration Joint Injection/Aspiration Primary Site: left knee Prep: site was prepped using aseptic technique, ethochloride spray was applied and injection warnings given Injected: 80 mg of, DepoMedrol, with 8 mL of, 1% plain lidocaine and in the joint Approach Used: anterolateral Procedure: The patient tolerated the procedure well and there was some relief with the local anesthesia Coding 58885 - Glenohumeral/Tronchanteric Bursa/Intraarticular Procedure code (CPT) selection complete Results Reviewed Results Reviewed: X-rays of both knees obtained in the office today and reviewed by me show intact right knee prosthesis without signs of loosening Left knee severe arthritis with valgus deformity Assessment & Plan Assessment & Plan (1) Status post right knee replacement: Code(s): Z96.651 - Presence of right artificial knee joint Category: Surgical (2) Osteoarthritis of left knee: Code(s): M17.12 - Unilateral primary osteoarthritis, left knee Category: Medical (3) Valgus deformity, not elsewhere classified, left knee: Code(s): M21.062 - Valgus deformity, not elsewhere classified, left knee Category: Medical Plan As for her right knee she will continue maintaining her quad strength and conditioning exercises to maintain good total knee health. For her left knee we discussed options which includes a steroid injection versus total knee arthroplasty. She would like to proceed with a total knee arthroplasty however would like to proceed with steroid injection 1st. I did explain with a left knee injection she will need to wait 3 months for total knee which she is content with. Left knee was injected today with steroid which the patient tolerated well. I strongly encouraged her on smoking cessation to have a more successful postop outcome. She will see Dr. Richmond in 4 weeks to discuss booking left total knee arthroplasty patient is content with this plan. Orders: Orders XR Knee Fabrizio 3V Today M25.561 - Pain in right knee, M25.562 - Pain in left knee Coding Level of Care Code Est Pt Level 3 (14052) Complex EM visit Add On G2211 Diagnoses Status post right knee replacement Z96.651 Osteoarthritis of left knee M17.12 Valgus deformity, not elsewhere classified, left knee M21.062 CPT Codes Coding - Joint 7: 15208 - Glenohumeral/Tronchanteric Bursa/Intraarticular ([id number])
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
== END 2024-08-22 15:35 | disposition home or self-care (01) ==
LOC: HO.HOS 14:52
PROVIDERS: PCP Internal Medicine; Visit Provider Physician Assistant
DX: M17.12 Unilateral primary osteoarthritis, left knee (principal); M21.062 Valgus deformity, not elsewhere classified, left knee; Z96.651 Presence of right artificial knee joint
CPT/HCPCS: 20610; 99213

== ENCOUNTER → 2024-08-22 14:54 | Outpatient (BNV) | payer OTHER, SELFPAY | PROVIDERS: Visit Provider Radiology Diagnostic Radiology | DX: M21.062 Valgus deformity, not elsewhere classified, left knee (principal); Z96.651 Presence of right artificial knee joint | CPT/HCPCS: 73562 ==